=== PATIENT | male | born 1965 | race Hispanic/Latino ===

== ENCOUNTER 2017-10-01 15:14 | Emergency (ER) | payer SELFPAY ==
[2017-10-01 15:40] VITALS: BMI 33.3
[2017-10-01 15:46] VITALS: O2SAT 100
--- NOTE | 2017-10-01 16:10 | C.PDOC ---
History Of Present Illness 52 y/o male presents to ED with complaints of pain to Rectal area for 2 days worse when having bowel movement. Patient states last night he was straining and noticed bright red blood in stool and states he feel constipated. Patient denies back pain, fever, chills, abdominal pain, vomiting or any other complaints at this time. Time Seen by Provider: 10/01/17 16:01 Chief Complaint (Nursing): GI Problem History Per: Patient History/Exam Limitations: no limitations Onset/Duration Of Symptoms: Days Current Symptoms Are (Timing): Still Present Past Medical History Reviewed: Historical Data, Nursing Documentation, Vital Signs Vital Signs: Last Vital Signs Temp 97.4 F L 10/01/17 16:40 Pulse 48 L 10/01/17 16:40 Resp 16 10/01/17 16:40 BP 117/79 10/01/17 16:40 Pulse Ox 100 10/01/17 16:40 - Medical History PMH: No Chronic Diseases Surgical History: Hernia Repair Family History: States: No Known Family Hx - Social History Hx Tobacco Use: No Hx Alcohol Use: Yes Hx Substance Use: No - Immunization History Hx Tetanus Toxoid Vaccination: No Hx Influenza Vaccination: No Hx Pneumococcal Vaccination: No Review Of Systems Constitutional: Negative for: Fever, Chills Gastrointestinal: Positive for: Constipation, Rectal Pain. Negative for: Nausea , Vomiting, Abdominal Pain, Diarrhea Musculoskeletal: Negative for: Back Pain Skin: Negative for: Rash Physical Exam - Physical Exam Appears: Non-toxic, No Acute Distress Skin: Normal Color, Warm, Dry, No Rash Head: Atraumatic, Normacephalic Eye(s): bilateral: Normal Inspection, EOMI Oral Mucosa: Moist Neck: Supple Cardiovascular: Rhythm Regular Respiratory: Normal Breath Sounds, No Accessory Muscle Use, No Rales, No Rhonchi , No Wheezing Gastrointestinal/Abdominal: Soft, No Tenderness, No Guarding, No Rebound Rectal: No Blood Streaked Stool, Hemorrhoids (External. Non thrombosed, Non tender ) Back: Normal Inspection, No Vertebral Tenderness, No Paraspinal Tenderness Extremity: Bilateral: Atraumatic, Normal Color And Temperature, Normal ROM Neurological/Psych: Oriented x3, Normal Speech ED Course And Treatment O2 Sat by Pulse Oximetry: 100 (RA) Pulse Ox Interpretation: Normal Medical Decision Making Medical Decision Making: Patient with external non-thrombosed hemorrhoids, no bleeding noted. Advise patient to increase fluid and fiber intake to help with constipation. Also recommend medications to help with symptoms Rx Given. Disposition Counseled Patient/Family Regarding: Diagnosis, Need For Followup, Rx Given - Disposition Referrals: Linda Doll MD [Staff Provider] - Disposition: HOME/ ROUTINE Disposition Time: 16:10 Condition: STABLE Additional Instructions: Intente aumentar la ingesta de fibra y agua para ayudar con los sntomas de estreimiento aplicar crema en el lori rectal Por favor, winnie un seguimiento con un mdico o clnica para sarah evaluacin adicional Prescriptions: Docusate [Colace] 100 mg PO Q8 #30 cap Hydrocortisone 2.5% (Rectal) [Anusol-HC] 30 applic HI BID #1 tube Instructions: Hemorrhoids (ED), High Fiber Diet (ED) Forms: [employer] (Sinhala) Print Language: INDONESIAN - POA Present On Arrival: None - Clinical Impression Clinical Impression: Hemorrhoids - PA / HULL MOLDER / Resident Statement MD/DO has reviewed & agrees with the documentation as recorded. - Scribe Statement The provider has reviewed the documentation as recorded by the Daxa Gaines All medical record entries made by the Rossibtraci were at my direction and personally dictated by me. I have reviewed the chart and agree that the record accurately reflects my personal performance of the history, physical exam, medical decision making, and the department course for this patient. I have also personally directed, reviewed, and agree with the discharge instructions and disposition.
[2017-10-01 16:40] VITALS: BP 117/79; PULSE 48; RESP 16; TEMP 97.4
== END 2017-10-01 16:41 | disposition home or self-care (01) ==
LOC: C.ER 15:14
DX: K64.4 Residual hemorrhoidal skin tags (principal)
CPT/HCPCS: 99284; G0328

== ENCOUNTER 2017-12-21 02:31 | Emergency (ER) | payer OTHER ==
[2017-12-21 02:31] VITALS: BMI 33.3
[2017-12-21 02:49] VITALS: RESP 18
[2017-12-21 03:47] LABS: BASO % 0.5 % (0.0-2.0); EOS # 0.2 K/uL (0.0-0.7); EOS % 1.7 % (0.0-4.0); HEMOGLOBIN 15.2 g/dL (12.0-18.0); LYMPH # 2.9 K/uL (1.0-4.3); MEAN CELL VOLUME 91.2 fL (80.0-94.0); MEAN CORPUSCULAR HEMOGLOBIN 30.8 pg (27.0-31.0); MEAN CORPUSCULAR HGB CONC 33.8 g/dL (33.0-37.0); MEAN PLATELET VOLUME 10.5 fL (7.2-11.7); MONO % 10.7 % (0.0-10.0); NEUT # 5.1 K/uL (1.8-7.0); NEUT % 55.1 % (50.0-75.0); NRBC % 0.1 % (0.0-2.0); RBC 4.93 Mil/uL (4.40-5.90); RED CELL DISTRIBUTION WIDTH 14.5 % (11.5-14.5); WHITE BLOOD COUNT 9.2 K/uL (4.8-10.8)
[2017-12-21 03:54] LABS: INR 0.9; PROTHROMBIN TIME 10.5 SECONDS (9.7-12.2)
[2017-12-21 04:02] LABS: CALCIUM 9.7 mg/dl (8.6-10.4); GFR AFRICAN-AMERICAN > 60; GFR NON-AFRICAN AMERICAN > 60; LIPASE 49 U/L (23-300)
[2017-12-21 04:05] LABS: URINE BILIRUBIN NEGATIVE (NEGATIVE); URINE BLOOD NEGATIVE (NEGATIVE); URINE CLARITY Clear (Clear); URINE COLOR Yellow (YELLOW); URINE GLUCOSE (UA) NORMAL (Normal); URINE LEUKOCYTE ESTERASE NEG Leu/uL (Negative); URINE NITRATE NEGATIVE (NEGATIVE); URINE PROTEIN NEGATIVE (NEGATIVE); URINE UROBILINOGEN NORMAL mg/dL (0.2-1.0)
[2017-12-21 04:11] LABS: ALB/GLOB RATIO 1.2 (1.0-2.1); ALT/SGPT 25 U/L (21-72); AST/SGOT 33 U/L (17-59); BLOOD UREA NITROGEN 18 mg/dL (9-20)
[2017-12-21 04:14] LABS: CK-MB 2.63 ng/mL (0.0-3.38)
[2017-12-21] MEDS ORDERED: Sodium Chloride 0.9% 1,000 ML IV ONE (04:35)
[2017-12-21] MEDS ORDERED: Morphine 4 MG/ML VIAL ONE (04:47)
[2017-12-21] MEDS ORDERED: Sodium Chloride 0.9% 1,000 ML ONE (04:47)
[2017-12-21 06:40] VITALS: BP 120/67; PULSE 52; TEMP 97.7; O2SAT 100
--- NOTE | 2017-12-21 06:47 | C.PDOC ---
Time Seen by Provider: 12/21/17 03:00 Chief Complaint (Nursing): Abdominal Pain History Per: Patient, Family Onset/Duration Of Symptoms: Hrs (2) Current Symptoms Are (Timing): Still Present Severity: Moderate Location Of Pain/Discomfort: RUQ, Epigastric Quality Of Discomfort: "Pain" Alleviating Factors: None Additional History Per: Prior Records Past Medical History Reviewed: Historical Data, Nursing Documentation, Vital Signs Vital Signs: Last Vital Signs Temp 97.7 F 12/21/17 06:38 Pulse 52 L 12/21/17 06:38 Resp 18 12/21/17 06:38 BP 120/67 12/21/17 06:38 Pulse Ox 100 12/21/17 06:48 - Medical History Other PMH: Bradycardia and "enlarged heart" Surgical History: Hernia Repair Family History: States: Unknown Family Hx - Social History Hx Tobacco Use: No Hx Alcohol Use: Yes Hx Substance Use: No - Immunization History Hx Tetanus Toxoid Vaccination: No Hx Influenza Vaccination: No Hx Pneumococcal Vaccination: No Review Of Systems Except As Marked, All Systems Reviewed And Found Negative. Constitutional: Negative for: Fever Cardiovascular: Negative for: Chest Pain, Palpitations, Light Headedness Respiratory: Negative for: Shortness of Breath Gastrointestinal: Positive for: Constipation. Negative for: Vomiting Genitourinary: Negative for: Dysuria Musculoskeletal: Negative for: Neck Pain, Back Pain Skin: Negative for: Rash Neurological: Negative for: Weakness, Numbness, Dizziness Physical Exam - Physical Exam Appears: Non-toxic, No Acute Distress Skin: Normal Color, Warm, Dry, No Rash Head: Atraumatic, Normacephalic Eye(s): bilateral: Normal Inspection, PERRL, EOMI Neck: Normal ROM, Supple Cardiovascular: Rhythm Regular (bradycardia) Respiratory: Normal Breath Sounds, No Accessory Muscle Use Gastrointestinal/Abdominal: Soft, Tenderness (epigastric/RUQ), No Guarding, No Rebound Back: No CVA Tenderness Extremity: Normal ROM, No Pedal Edema, No Calf Tenderness Neurological/Psych: Oriented x3, Normal Motor, Normal Sensation ED Course And Treatment - Laboratory Results Result Diagrams: 12/21/17 03:43 12/21/17 03:43 Lab Interpretation: No Acute Changes ECG: Interpreted By Me, Viewed By Me ECG Rhythm: Sinus Bradycardia, Nonspecific Changes ECG Interpretation: No Changes From Prior Interpretation Of ECG: T wave inversions in anterolateral leads. Rate From EC O2 Sat by Pulse Oximetry: 100 Pulse Ox Interpretation: Normal - Radiology CXR: Interpreted by Me, Viewed By Me CXR Interpretation: Yes: Cardiomegaly - CT Scan/US RUQ Sono Other Rad Studies (CT/US): Read By Radiologist, Radiology Report Reviewed CT/US Interpretation: IMPRESSION: 1. There are gallstones, gallbladder sludge with 3 mm gallbladder wall. thickening.There was no right upper quadrant tenderness during the sonographic. examination. Correlation with patient's pain medication status is recommended. Correlation with clinical data is recommended if acute on chronic. cholecystitis is clinically suspected. Progress - Interventions Interventions:: Observation, Intravenous fluid - Medications Administered Intravenous: Opiate - Data Reviewed Data Reviewed: Lab, Diagnostic imaging, EKG, Old records - Patient Status Patient status: Completely improved - Continuity of Care Discussed patient case with:: Patient, Family-HIPPA compliant, ED Nurse - Patient Plan Patient Plan: Discharge, F/U with PCP Disposition Counseled Patient/Family Regarding: Studies Performed, Diagnosis, Need For Followup - Disposition Referrals: [facility] [Outside] Fantasma Nesbitt MD [Staff Provider] - Disposition: HOME/ ROUTINE Disposition Time: 07:02 Condition: IMPROVED Additional Instructions: Follow up in the clinic and with a General Surgeon for further evaluation and treatment. Return to the ER if you develop fever, vomiting, worsening of symptoms or if you have any other concerns. Instructions: Gallstones (DC) Forms: Gen Discharge Inst Welsh Print Language: SAUDI ARABIAN - Clinical Impression Clinical Impression: Biliary colic
--- NOTE | 2017-12-21 06:51 | US ---
EXAM: US Abdomen Limited, Right Upper Quadrant CLINICAL HISTORY: 52 years old, male; Pain; Abdominal pain; Epigastric; Additional info: Ruq/epigastric pain TECHNIQUE: Real-time ultrasound of the right upper quadrant with image documentation. COMPARISON: No relevant prior studies available. FINDINGS: Artifacts: Limited due to bowel gas shadowing. Limited due to shadowing from the ribs. Liver: The liver measures 15.58 cm. Echogenic fatty liver. Limited evaluation due to shadowing.There is hepatic pedal flow in the portal vein. Gallbladder: There are gallstones, gallbladder sludge with 3 mm gallbladder wall thickening.There was no right upper quadrant tenderness during the sonographic examination. Correlation with patient's pain medication status is recommended. The gallstone was not mobile as perceived by technologist. Common bile duct: Normal common bile duct measuring 4 mm. No stones. No dilation. Pancreas: The pancreas is not well-seen. Echogenic pancreas. Right kidney: The right kidney measures 10.5 x 5.04 x 5.88 cm. No stones. No hydronephrosis. Aorta: The proximal aorta measures 2.2 cm, the mid abdominal aorta appears grossly unremarkable. The distal abdominal aorta appears unremarkable. No aneurysm. 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 IMPRESSION: 1. There are gallstones, gallbladder sludge with 3 mm gallbladder wall thickening.There was no right upper quadrant tenderness during the sonographic examination. Correlation with patient's pain medication status is recommended. Correlation with clinical data is recommended if acute on chronic cholecystitis is clinically suspected.
--- NOTE | 2017-12-21 08:56 | RAD ---
HISTORY: Epigastric pain COMPARISON: 02/26/2015 TECHNIQUE: Chest PA and lateral FINDINGS: LUNGS: No active pulmonary disease. PLEURA: No significant pleural effusion identified. No pneumothorax apparent. CARDIOVASCULAR: Normal. OSSEOUS STRUCTURES: No significant abnormalities. VISUALIZED UPPER ABDOMEN: Normal. OTHER FINDINGS: None. IMPRESSION: No active disease.
--- NOTE | 2017-12-25 12:39 | CARD ---
APPROVED REPORT EKG Measurement Heart [id number] <Conclusion> Marked sinus bradycardia Anterolateral infarct, age undetermined ST & T wave abnormality, consider inferiorlateral ischemia Abnormal ECG
--- NOTE | 2017-12-25 12:40 | CARD ---
APPROVED REPORT EKG Measurement Heart [id number] <Conclusion> Sinus bradycardia Marked ST abnormality, possible lateral subendocardial injury Abnormal ECG
== END 2017-12-21 07:18 | disposition home or self-care (01) ==
LOC: C.ER 02:31
DX: K80.50 Calculus of bile duct without cholangitis or cholecystitis without obstruction (principal)
CPT/HCPCS: 71046; 76705; 80053; 81001; 83690; 84484; 85025; 85610; 85730; 93005; 96361; 96374; 96375; 99284; C9113; J2270; J7040

== ENCOUNTER 2017-12-25 07:21 | Emergency (ER) | payer OTHER ==
[2017-12-25 07:21] VITALS: BMI 33.3
--- NOTE | 2017-12-25 09:11 | C.PDOC ---
History Of Present Illness 52 yr old male presents to the ER with complaints of rectal pain with bowel movement for the past 3 days. Patient reports history of hemorrhoids. States it feels similar to past hemorrhoid flare up. Patient reports he noticed small amount of blood when he strains. Reports positive constipation. Patient denies fever, nausea, vomiting, abdominal pain, diarrhea, dysuria, hematuria, back pain , weakness or numbness. Time Seen by Provider: 12/25/17 08:15 Chief Complaint (Nursing): GI Problem History Per: Patient History/Exam Limitations: no limitations Onset/Duration Of Symptoms: Days (3) Current Symptoms Are (Timing): Still Present Past Medical History Reviewed: Historical Data, Nursing Documentation, Vital Signs Vital Signs: Last Vital Signs Temp 98 F 12/25/17 10:41 Pulse 60 12/25/17 10:41 Resp 20 12/25/17 10:41 BP 109/66 12/25/17 10:41 Pulse Ox 97 12/25/17 10:41 Surgical History: Hernia Repair Family History: States: No Known Family Hx - Social History Hx Tobacco Use: No Hx Alcohol Use: Yes Hx Substance Use: No - Immunization History Hx Tetanus Toxoid Vaccination: No Hx Influenza Vaccination: No Hx Pneumococcal Vaccination: No Review Of Systems Except As Marked, All Systems Reviewed And Found Negative. Constitutional: Negative for: Fever Gastrointestinal: Positive for: Constipation, Rectal Pain. Negative for: Nausea , Vomiting, Abdominal Pain, Diarrhea Genitourinary: Negative for: Dysuria, Hematuria Musculoskeletal: Negative for: Back Pain Neurological: Negative for: Weakness, Numbness Physical Exam - Physical Exam Appears: Non-toxic, No Acute Distress Skin: Warm, Dry, No Rash Head: Atraumatic, Normacephalic Eye(s): bilateral: Normal Inspection Oral Mucosa: Moist Neck: Normal ROM, Supple Chest: Symmetrical, No Tenderness Cardiovascular: Rhythm Regular, No Murmur Respiratory: Normal Breath Sounds, No Rales, No Rhonchi, No Stridor, No Wheezing Gastrointestinal/Abdominal: Soft, No Tenderness, No Guarding, No Rebound Rectal: No Blood Streaked Stool, Hemorrhoids (1cm non thrombosed hemorrhoid at 9 oclock position), Other (news director TAMI Ordaz) Back: No CVA Tenderness Extremity: Normal ROM, No Swelling Neurological/Psych: Oriented x3, Normal Speech, Normal Motor Gait: Steady ED Course And Treatment O2 Sat by Pulse Oximetry: 98 (RA) Pulse Ox Interpretation: Normal Medical Decision Making Medical Decision Making: PLAN: * Bentyl PO * Motrin Po On re-exam, the patient reports improvement of symptoms. Lungs are CTA, heart is RRR, abdomen is soft, non-tender and tolerating PO well. Ambulatory in the ED steady gait. Follow up with the medical doctor within 1-2 days. Return if worsened. Disposition - Disposition Referrals: Fantasma Nesbitt MD [Staff Provider] - Disposition: HOME/ ROUTINE Disposition Time: 10:29 Condition: STABLE Additional Instructions: Perform sitz baths 3 days. Follow up with the medical doctor within 1-2 days withotu fail, return if worsened,. Prescriptions: Dicyclomine [Bentyl] 10 mg PO QID PRN #20 cap PRN Reason: stomach pain Lidocaine/Aloe Vera [Gnp Aloe Vera-Lidocaine Gel] 2 gm TP BID #1 gel..gram. Instructions: Hemorrhoids Forms: [employer] (Yakut) - Clinical Impression Clinical Impression: Hemorrhoid - PA / LENS BLOCK GAUGER / Resident Statement MD/DO has reviewed & agrees with the documentation as recorded. - Scribe Statement The provider has reviewed the documentation as recorded by the Scribe Kala Sorenson All medical record entries made by the Scribe were at my direction and personally dictated by me. I have reviewed the chart and agree that the record accurately reflects my personal performance of the history, physical exam, medical decision making, and the department course for this patient. I have also personally directed, reviewed, and agree with the discharge instructions and disposition.
[2017-12-25 10:43] VITALS: BP 109/66; PULSE 60; RESP 20; TEMP 98
[2017-12-26 20:00] VITALS: O2SAT 98
== END 2017-12-25 10:41 | disposition home or self-care (01) ==
LOC: C.ER 07:21
DX: K64.9 Unspecified hemorrhoids (principal)

== ENCOUNTER 2018-05-08 10:10 | Emergency (ER) | payer OTHER ==
[2018-05-08 10:10] VITALS: BMI 33.3
[2018-05-08 10:25] VITALS: O2SAT 98
[2018-05-08] MEDS ORDERED: Sodium Chloride 0.9% 1,000 ML IV ONE (10:34)
--- NOTE | 2018-05-08 10:35 | C.PDOC ---
History Of Present Illness 53 year old male with a known history of gallstones presents to the emergency department with complaints of right upper quadrant pain for the past three days. Patient reports that the pain is intermittent, and is similar to prior episodes. Patient reports that he did not take any pain relievers, and he denies nausea and vomiting. Time Seen by Provider: 05/08/18 10:25 Chief Complaint (Nursing): Abdominal Pain History Per: Patient History/Exam Limitations: no limitations Onset/Duration Of Symptoms: Days (3), Intermittent Episodes Current Symptoms Are (Timing): Still Present Location Of Pain/Discomfort: RUQ Quality Of Discomfort: "Pain" Associated Symptoms: denies: Nausea, Vomiting Past Medical History Reviewed: Historical Data, Nursing Documentation, Vital Signs Vital Signs: Last Vital Signs Temp 98 F 05/08/18 12:56 Pulse 76 05/08/18 12:56 Resp 18 05/08/18 12:56 BP 136/72 05/08/18 12:56 Pulse Ox 98 05/08/18 12:56 - Medical History PMH: Gall Bladder Disease Other PMH: Gallstones Surgical History: Hernia Repair Family History: States: No Known Family Hx - Social History Hx Tobacco Use: No Hx Alcohol Use: Yes Hx Substance Use: No - Immunization History Hx Tetanus Toxoid Vaccination: No Hx Influenza Vaccination: No Hx Pneumococcal Vaccination: No Review Of Systems Constitutional: Negative for: Fever, Chills Cardiovascular: Negative for: Chest Pain Respiratory: Negative for: Shortness of Breath Gastrointestinal: Positive for: Abdominal Pain (RUQ). Negative for: Nausea, Diarrhea Genitourinary: Negative for: Dysuria Musculoskeletal: Negative for: Back Pain Neurological: Negative for: Weakness, Numbness Physical Exam - Physical Exam Appears: Well, Non-toxic, No Acute Distress Skin: Warm, Dry, No Rash Head: Atraumatic, Normacephalic Eye(s): bilateral: Normal Inspection Oral Mucosa: Moist Neck: Normal Chest: Symmetrical Cardiovascular: Rhythm Regular, No Murmur Respiratory: Normal Breath Sounds, No Rales, No Rhonchi, No Wheezing Gastrointestinal/Abdominal: Soft, Tenderness (RUQ), No Distention, Other ( negative Jones's ) Extremity: Bilateral: Atraumatic, Normal Color And Temperature, Normal ROM Neurological/Psych: Oriented x3, Normal Speech Gait: Steady ED Course And Treatment - Laboratory Results Result Diagrams: 05/08/18 10:44 05/08/18 10:44 Lab Interpretation: No Acute Changes O2 Sat by Pulse Oximetry: 98 (RA) Pulse Ox Interpretation: Normal - CT Scan/US US Abdomen Other Rad Studies (CT/US): Read By Radiologist, Radiology Report Reviewed CT/US Interpretation: IMPRESSION: Cholelithiasis. No sonographic Jones sign. Hepatomegaly with increased hepatic echotexture likely due to fatty infiltration however other infiltrative hepatic cellular disease process not excluded. Medical Decision Making Medical Decision Making: Impression: RUQ abdominal pain Plan: * Labs * IV NS * Toradol 30mg IVP * Zofran 4mg IVP * Urinalysis * US Abdomen Progress: Labs reviewed with no acute findings. No leukocytosis, bandemia, electrolyte abnormality or renal dysfunction. US shows cholelithiasis without evidence of acute cholecystitis Re-eval: Upon re-evaluation patient feels better and reports abdominal pain having resolved. Patient has no fever and vital signs stable. I discussed results with patient and advised he follow up in the clinic and seek surgery as this pain will likely be recurrent. Patient expressed understanding and will follow up with clinic. Disposition Counseled Patient/Family Regarding: Diagnosis, Need For Followup - Disposition Referrals: Rip Pineda MD [Staff Provider] - Linda Doll MD [Staff Provider] - Disposition: HOME/ ROUTINE Disposition Time: 12:55 Condition: STABLE Additional Instructions: Tus laboratorios fueron normales Ultrasonido muestra clculos biliares Por favor winnie un seguimiento en la clnica y busque consulta quirrgica Instructions: Gallstones (DC) Forms: [email or web address] (Georgian) Print Language: LATVIAN - POA Present On Arrival: None - Clinical Impression Clinical Impression: Cholelithiasis - PA / BARREL TESTER / Resident Statement MD/DO has reviewed & agrees with the documentation as recorded. - Scribe Statement The provider has reviewed the documentation as recorded by the Scribe (Dev Mortensen) All medical record entries made by the Scribe were at my direction and personally dictated by me. I have reviewed the chart and agree that the record accurately reflects my personal performance of the history, physical exam, medical decision making, and the department course for this patient. I have also personally directed, reviewed, and agree with the discharge instructions and disposition.
[2018-05-08] MEDS ORDERED: Sodium Chloride 0.9% 1,000 ML ONE (10:43)
[2018-05-08 10:47] LABS: BASO # 0.1 K/uL (0.0-0.2); BASO % 0.7 % (0.0-2.0); EOS # 0.2 K/uL (0.0-0.7); EOS % 1.9 % (0.0-4.0); HEMOGLOBIN 15.1 g/dL (12.0-18.0); LYMPH # 2.1 K/uL (1.0-4.3); MEAN CORPUSCULAR HEMOGLOBIN 30.3 pg (27.0-31.0); MEAN CORPUSCULAR HGB CONC 33.3 g/dL (33.0-37.0); MONO # 0.9 K/uL (0.0-0.8); NEUT # 6.6 K/uL (1.8-7.0); NEUT % 67.4 % (50.0-75.0); RBC 4.97 Mil/uL (4.40-5.90); RED CELL DISTRIBUTION WIDTH 14.6 % (11.5-14.5); WHITE BLOOD COUNT 9.8 K/uL (4.8-10.8)
[2018-05-08 10:57] LABS: SQUAMOUS EPITHIAL < 1 /hpf (0-5); URINE BILIRUBIN NEGATIVE (NEGATIVE); URINE BLOOD NEGATIVE (NEGATIVE); URINE CLARITY Clear (Clear); URINE COLOR Yellow (YELLOW); URINE GLUCOSE (UA) NORMAL (Normal); URINE LEUKOCYTE ESTERASE NEG Leu/uL (Negative); URINE PROTEIN NEGATIVE (NEGATIVE); URINE UROBILINOGEN NORMAL mg/dL (0.2-1.0)
[2018-05-08 11:04] LABS: ALB/GLOB RATIO 1.7 (1.0-2.1); ALBUMIN 4.6 g/dL (3.5-5.0); ALT/SGPT 19 U/L (21-72); AST/SGOT 30 U/L (17-59); BLOOD UREA NITROGEN 15 mg/dL (9-20); GFR AFRICAN-AMERICAN > 60; GFR NON-AFRICAN AMERICAN > 60; LIPASE 31 U/L (23-300)
--- NOTE | 2018-05-08 12:12 | US ---
HISTORY: RUQ abd pain h.o gallstones COMPARISON: Comparison made with prior right upper quadrant ultrasound dated 12/21/2017 TECHNIQUE: Sonographic evaluation of the right upper quadrant of the abdomen. FINDINGS: LIVER: Mildly enlarged measuring nearly 20cm in CC dimension. Smooth contour though increased echogenicity likely due to fatty infiltration however other infiltrative hepatic cellular disease process not excluded. No mass. No intrahepatic bile duct dilatation. GALLBLADDER: Cholelithiasis again noted. No pericholecystic fluid collections or sonographic Jones sign. COMMON BILE DUCT: Measures 5.0 mm. No stones. No dilatation. PANCREAS: Pancreas incompletely seen due to body habitus and bowel gas though otherwise appears unremarkable so far as can be determined RIGHT KIDNEY: Measures 10.5 x 4.9 x 5.5 cm in length. Normal echogenicity. No calculus, mass, or hydronephrosis. AORTA: No aneurysmal dilatation. IVC: Unremarkable. OTHER FINDINGS: None . IMPRESSION: Cholelithiasis. No sonographic Jones sign. Hepatomegaly with increased hepatic echotexture likely due to fatty infiltration however other infiltrative hepatic cellular disease process not excluded.
[2018-05-08 12:56] VITALS: BP 136/72; PULSE 76; RESP 18; TEMP 98
== END 2018-05-08 12:56 | disposition home or self-care (01) ==
LOC: C.ER 10:10
DX: K80.20 Calculus of gallbladder without cholecystitis without obstruction (principal)
CPT/HCPCS: 76705; 80053; 81001; 83690; 85025; 96374; 96375; 99284; J1885; J2405; J7030

== ENCOUNTER 2018-05-08 18:13 | Inpatient (IN) | payer OTHER ==
[2018-05-08 18:13] VITALS: BMI 33.3
[2018-05-08] MEDS ORDERED: Morphine 4 MG/ML VIAL IV ONE ×2 (19:10→21:33)
--- NOTE | 2018-05-08 19:11 | C.PDOC ---
History Of Present Illness 53 year old male presents to the ED complaining of abdominal pain since . Patient states he was treated in the ER this morning for the same symptoms but pain persists. He also reports he was diagnosed with gallbladder disease in 3 months ago. He denies any nausea, vomiting, diarrhea, fever, back pain, shoulder pain, or other medical complaints. Time Seen by Provider: 05/08/18 19:10 Chief Complaint (Nursing): Abdominal Pain History Per: Patient History/Exam Limitations: no limitations Onset/Duration Of Symptoms: Days Current Symptoms Are (Timing): Still Present Location Of Pain/Discomfort: RUQ Radiation Of Pain To:: None Associated Symptoms: denies: Fever, Chills, Nausea, Vomiting, Diarrhea Past Medical History Reviewed: Historical Data, Nursing Documentation, Vital Signs Vital Signs: Last Vital Signs Temp 99.4 F 05/08/18 20:59 Pulse 59 L 05/08/18 20:59 Resp 16 05/08/18 20:59 BP 96/55 L 05/08/18 20:59 Pulse Ox 99 05/08/18 21:57 - Medical History PMH: Gall Bladder Disease Denies: Chronic Kidney Disease Surgical History: Hernia Repair Family History: States: No Known Family Hx - Social History Hx Tobacco Use: No Hx Alcohol Use: Yes Hx Substance Use: No - Immunization History Hx Tetanus Toxoid Vaccination: No Hx Influenza Vaccination: No Hx Pneumococcal Vaccination: No Review Of Systems Except As Marked, All Systems Reviewed And Found Negative. Constitutional: Negative for: Fever, Chills Gastrointestinal: Positive for: Abdominal Pain (Right Upper Quadrant). Negative for: Nausea, Vomiting, Diarrhea Musculoskeletal: Negative for: Shoulder Pain, Back Pain Physical Exam - Physical Exam Appears: Non-toxic, Other (Uncomfortable ) Skin: Normal Color, Warm, Dry Head: Atraumatic, Normacephalic Eye(s): bilateral: Normal Inspection Oral Mucosa: Moist Gastrointestinal/Abdominal: Tenderness (Tenderness to palpation to right upper quadrant), Guarding, Other (+ Jones's sign) Neurological/Psych: Oriented x3, Normal Speech ED Course And Treatment - Laboratory Results Result Diagrams: 05/08/18 19:24 05/08/18 19:24 ECG: Interpreted By Me ECG Rhythm: Sinus Rhythm, ST/T Changes O2 Sat by Pulse Oximetry: 99 (RA) Pulse Ox Interpretation: Normal - CT Scan/US US Abd Other Rad Studies (CT/US): Read By Radiologist, Radiology Report Reviewed CT/US Interpretation: EXAM: US Abdomen Limited, Right Upper Quadrant. CLINICAL HISTORY: 53 years old, male; Pain; Abdominal pain; Generalized; Additional info: Abd pain-ruq. TECHNIQUE: Real-time ultrasound of the right upper quadrant with image documentation. COMPARISON: US - ABDOMEN LIMITED 2017 11:01. FINDINGS: Liver: Liver echogenicity is diffusely increased. Enlarged liver at 20 cm. No intrahepatic bile duct. dilation. Gallbladder: Sonographic Jones's sign is negative. Gallbladder wall thickness 3 mm. small. gallstone within the neck which is non-mobile. Additional smaller stones also seen which appear. mobile. Gallbladder sludge is also present. Common bile duct: Common bile duct 5 mm. No stones. No dilation. Pancreas: Unremarkable as visualized. Right kidney: Right kidney is 10.5 cm. No stones. No hydronephrosis. IMPRESSION: Gallbladder neck stone which is mobile. Additional small stones and sludge. No biliary dilatation is seen. Liver as enlarged with increased echogenicity suggesting hepatic steatosis. pos stone in neck of GB which is immobile Other Rad Studies (CT/US): Read By Radiologist Medical Decision Making Medical Decision Making: Differentials: - Cholecystitis - Biliary Colic - Peptic Ulcer Disease - Gastritis Plan: - Labs - Analgesics - US abdomen [address] Nesbitt, Surgery for biliary colic intractable. 2033 Dr. Nesbitt admitted patient. [id number] Previous EKGs reports reviewed. Patient previously had flipped T waves and V2, now demonstrated flipped T waves and V4 through V6. Disposition - Disposition Disposition: HOSPITALIZED Disposition Time: 22:26 Condition: FAIR - Clinical Impression Clinical Impression: Recurrent biliary colic - Scribe Statement The provider has reviewed the documentation as recorded by the Scribe Dana Wick All medical record entries made by the Rossibe were at my direction and personally dictated by me. I have reviewed the chart and agree that the record accurately reflects my personal performance of the history, physical exam, medical decision making, and the department course for this patient. I have also personally directed, reviewed, and agree with the discharge instructions and disposition.
[2018-05-08 19:31] LABS: BASO # 0.1 K/uL (0.0-0.2); BASO % 0.5 % (0.0-2.0); EOS # 0.1 K/uL (0.0-0.7); HEMOGLOBIN 14.7 g/dL (12.0-18.0); LYMPH # 1.3 K/uL (1.0-4.3); LYMPH % 10.1 % (20.0-40.0); MEAN CELL VOLUME 90.1 fL (80.0-94.0); MEAN CORPUSCULAR HEMOGLOBIN 29.7 pg (27.0-31.0); MEAN CORPUSCULAR HGB CONC 32.9 g/dL (33.0-37.0); MEAN PLATELET VOLUME 10.1 fL (7.2-11.7); MONO % 7.5 % (0.0-10.0); NEUT # 10.7 K/uL (1.8-7.0); NEUT % 80.9 % (50.0-75.0); RBC 4.95 Mil/uL (4.40-5.90); RED CELL DISTRIBUTION WIDTH 14.6 % (11.5-14.5); WHITE BLOOD COUNT 13.2 K/uL (4.8-10.8)
[2018-05-08] MEDS ORDERED: Morphine 4 MG/ML VIAL ONE (19:35)
[2018-05-08 19:36] LABS: PROTHROMBIN TIME 10.9 SECONDS (9.7-12.2)
[2018-05-08 19:41] LABS: ALB/GLOB RATIO 1.5 (1.0-2.1); ALBUMIN 4.3 g/dL (3.5-5.0); ALT/SGPT 23 U/L (21-72); AST/SGOT 38 U/L (17-59); BLOOD UREA NITROGEN 13 mg/dL (9-20); CALCIUM 9.5 mg/dl (8.6-10.4); GFR AFRICAN-AMERICAN > 60; GFR NON-AFRICAN AMERICAN > 60; LIPASE 24 U/L (23-300)
[2018-05-08] MEDS: Oxycodone/Acetaminophen 5/325 mg Tab PO PRN (21:47)
[2018-05-08] MEDS ORDERED: Oxycodone/Acetaminophen 5/325 mg Tab ONE (21:48)
--- NOTE | 2018-05-08 22:13 | CP.PCM.CON ---
<Elia Braden - Last Filed: 05/08/18 22:09> History of Present Illness - History of Present Illness History of Present Illness: General Surgery H&P for Dr. Nesbitt This is 53M with no PMH who presents with intractable abdominal pain over the past 24 hours. He reports that he had a similar episode about 3 months ago and that he saw Dr. Nesbitt who said he would need a cholecystectomy in the near future. He did not followup because he was asymptomatic however now his symptoms have returned. Cramping abdominal pain located in the right upper quadrant. He denies any fevers chill chest pain nausea vomiting or diarrhea at home. He reports nothing makes it better and nothing makes it worse. PMH: Denies PSH: Inginal hernia repair 10 years ago Meds: Denies All: Denies Social: Denies Vices Review of Systems - Review of Systems All systems: reviewed and no additional remarkable complaints except - Constitutional Constitutional: absent: Anorexia, Chills - EENT Eyes: absent: Blind Spots, Blurred Vision Ears: absent: Ear Pain, Tinnitus - Cardiovascular Cardiovascular: absent: Chest Pain, Dyspnea - Respiratory Respiratory: absent: Cough, Dyspnea - Gastrointestinal Gastrointestinal: Abdominal Pain, Bloating. absent: Belching, Diarrhea, Melena , Nausea, Vomiting - Genitourinary Genitourinary: absent: Difficulty Urinating, Dysuria - Integumentary Integumentary: absent: Bleeding Lesions, Rash Past Patient History - Infectious Disease Hx of Infectious Diseases: None - Past Medical History & Family History Past Medical History?: Yes - Past Social History Smoking Status: Former Smoker - CARDIAC Hx Cardiac Disorders: No - PULMONARY Hx Respiratory Disorders: No - NEUROLOGICAL Hx Neurological Disorder: No - HEENT Hx HEENT Problems: No - RENAL Hx Chronic Kidney Disease: No - ENDOCRINE/METABOLIC Hx Endocrine Disorders: No - HEMATOLOGICAL/ONCOLOGICAL Hx Blood Disorders: No - INTEGUMENTARY Hx Dermatological Problems: No - MUSCULOSKELETAL/RHEUMATOLOGICAL Hx Musculoskeletal Disorders: No Hx Falls: No - GASTROINTESTINAL Hx Gall Bladder Disease: Yes - GENITOURINARY/GYNECOLOGICAL Hx Genitourinary Disorders: Yes (SEE COMMENT) Other/Comment: RIGHT INGUINAL HERNIA SX - PSYCHIATRIC Hx Substance Use: No - SURGICAL HISTORY Hx Surgeries: Yes Hx Herniorrhaphy: Yes - ANESTHESIA Hx Anesthesia: Yes Hx Anesthesia Reactions: No Hx Malignant Hyperthermia: No Meds Allergies/Adverse Reactions: Allergies Allergy/AdvReac Type Severity Reaction Status Date / Time No Known Allergies Allergy Verified 12/25/17 07:36 - Medications Medications: Current Medications Acetaminophen (Tylenol 325mg Tab) 650 mg PO Q6 PRN PRN Reason: Pain, Mild (1-3) Docusate Sodium (Colace) 100 mg PO BID KVNG Ibuprofen (Motrin Tab) 400 mg PO Q6 PRN PRN Reason: Pain, Mild (1-3) Ondansetron HCl (Zofran Inj) 4 mg IVP Q6 PRN PRN Reason: Nausea/Vomiting Oxycodone/Acetaminophen (Percocet 5/325 Mg Tab) 1 tab PO Q4H PRN PRN Reason: Pain, severe (8-10) Stop: 05/11/18 21:09 Last Admin: 05/08/18 21:47 Dose: 1 tab Physical Exam - Constitutional Appears: Non-toxic, No Acute Distress - Head Exam Head Exam: ATRAUMATIC, NORMAL INSPECTION - Eye Exam Eye Exam: EOMI, Normal appearance - ENT Exam ENT Exam: Mucous Membranes Moist, Normal Exam - Neck Exam Neck exam: Positive for: Normal Inspection - Respiratory Exam Respiratory Exam: NORMAL BREATHING PATTERN - Cardiovascular Exam Cardiovascular Exam: +S1, +S2 - GI/Abdominal Exam GI & Abdominal Exam: Soft, Tenderness. absent: Distended, Firm, Guarding, Hernia, Rigid - Extremities Exam Extremities exam: Positive for: normal inspection - Neurological Exam Neurological exam: Alert, Oriented x3 - Psychiatric Exam Psychiatric exam: Normal Affect, Normal Mood - Skin Skin Exam: Dry, Intact Results - Vital Signs Recent Vital Signs: Last Vital Signs Temp 99.4 F 05/08/18 20:59 Pulse 59 L 05/08/18 20:59 Resp 16 05/08/18 20:59 BP 96/55 L 05/08/18 20:59 Pulse Ox 99 05/08/18 21:57 - Labs Result Diagrams: 05/08/18 19:24 05/08/18 19:24 Labs: Laboratory Results - last 24 hr 05/08/18 05/08/18 05/08/18 19:24 19:24 19:24 WBC 13.2 H RBC 4.95 Hgb 14.7 Hct 44.6 MCV 90.1 MCH 29.7 MCHC 32.9 L RDW 14.6 H Plt Count 170 MPV 10.1 Neut % (Auto) 80.9 H Lymph % (Auto) 10.[address] % (Auto) 7.5 Eos % (Auto) 1.0 Baso % (Auto) 0.5 Neut # (Auto) 10.7 H Lymph # (Auto) 1.3 [facility] [facility] # (Auto) 1.0 H Eos # (Auto) 0.1 Baso # (Auto) 0.1 PT 10.9 INR 1.0 APTT 31 Sodium 142 Potassium 5.1 Chloride 105 Carbon Dioxide 28 Anion Gap 15 BUN 13 Creatinine 0.9 Est GFR ( Amer) > 60 Est GFR (Non-Af Amer) > 60 Random Glucose 122 H Calcium 9.5 Total Bilirubin 0.9 AST 38 ALT 23 Alkaline Phosphatase 59 Total Protein 7.3 Albumin 4.3 Globulin 3.0 Albumin/Globulin Ratio 1.5 Lipase 24 Assessment & Plan - Assessment and Plan (Free Text) Assessment: 53M with symptomatic cholelithiasis Plan: Regular Diet Or Thursday for Robotic [place] Consult medicine for medical clearance EKG CXR AM Labs F/U US D/W Dr. Laz Braden PGY3 <Fantasma Nebsitt B - Last Filed: 05/15/18 22:05> Results - Vital Signs Recent Vital Signs: Last Vital Signs Temp 97.3 F L 05/15/18 16:00 Pulse 55 L 05/15/18 16:00 Resp 20 05/15/18 16:00 BP 118/78 05/15/18 16:00 Pulse Ox 97 05/15/18 16:00 - Labs Result Diagrams: 05/13/18 07:50 05/13/18 07:50 Labs: Laboratory Results - last 24 hr 05/15/18 05/15/18 06:35 11:10 POC Glucose (mg/dL) 115 H 107 Attending/Attestation - Attestation I have personally seen and examined this patient.: Yes I have fully participated in the care of the patient.: Yes I have reviewed all pertinent clinical information: Yes Notes (Text): Pt was seen and examined at bedside Agree with above note and assessment Pt with RUQ pain and tenderness Labs and radiology reviewed Ass: Acute Cholecystitis and Cholelithiasis Plan : Medicine consult Possible Lap Cholecystectomy tomorrow Consent EKG, CXR NPO, IVF Plan d.w pt in detail. Risk and benefit explained in detail.
--- NOTE | 2018-05-09 00:55 | CP.PCM.CON ---
<Molly Samayoa P - Last Filed: 05/09/18 07:51> History of Present Illness - History of Present Illness History of Present Illness: HPI: 53 yo M with PMHx of cholelithiasis presented to the ED for severe 8/10 constant sharp RUQ abdominal pain that began 2 days prior to arrival. States he hasn't been able to eat due to the pain. Patient reportedly had this pain approximately 4 months ago, for which he was seen in the ED and followed up in the [facility] with Dr. Nesbitt who prescribed pain medication and told him he needed a surgery. Patient states at the time his symptoms had improved until now. Treatment with a "pain pill" provided no improvement. No relieving factors noted. Patient denies fever, chills, nausea, vomiting, diarrhea, chest pain, palpitations, and shortness of breath. PMHx: cholelithiasis PSHx: Hernia repair 10 years ago Allergies: NKDA Meds: Denies Family Hx: Denies Social Hx: Drinks 5, 12oz beers on the weekend. Denies tobacco and illicit drug use. PMD:[facility] Past Patient History - Infectious Disease Hx of Infectious Diseases: None - Past Medical History & Family History Past Medical History?: Yes - Past Social History Smoking Status: Former Smoker - CARDIAC Hx Cardiac Disorders: No - PULMONARY Hx Respiratory Disorders: No - NEUROLOGICAL Hx Neurological Disorder: No - HEENT Hx HEENT Problems: No - RENAL Hx Chronic Kidney Disease: No - ENDOCRINE/METABOLIC Hx Endocrine Disorders: No - HEMATOLOGICAL/ONCOLOGICAL Hx Blood Disorders: No - INTEGUMENTARY Hx Dermatological Problems: No - MUSCULOSKELETAL/RHEUMATOLOGICAL Hx Musculoskeletal Disorders: No Hx Falls: No - GASTROINTESTINAL Hx Gall Bladder Disease: Yes - GENITOURINARY/GYNECOLOGICAL Hx Genitourinary Disorders: Yes (SEE COMMENT) Other/Comment: RIGHT INGUINAL HERNIA SX - PSYCHIATRIC Hx Substance Use: No - SURGICAL HISTORY Hx Surgeries: Yes Hx Herniorrhaphy: Yes - ANESTHESIA Hx Anesthesia: Yes Hx Anesthesia Reactions: No Hx Malignant Hyperthermia: No Meds Allergies/Adverse Reactions: Allergies Allergy/AdvReac Type Severity Reaction Status Date / Time No Known Allergies Allergy Verified 12/25/17 07:36 - Medications Medications: Current Medications Acetaminophen (Tylenol 325mg Tab) 650 mg PO Q6 PRN PRN Reason: Pain, Mild (1-3) Docusate Sodium (Colace) 100 mg PO BID KVNG Ibuprofen (Motrin Tab) 400 mg PO Q6 PRN PRN Reason: Pain, Mild (1-3) Ondansetron HCl (Zofran Inj) 4 mg IVP Q6 PRN PRN Reason: Nausea/Vomiting Oxycodone/Acetaminophen (Percocet 5/325 Mg Tab) 1 tab PO Q4H PRN PRN Reason: Pain, severe (8-10) Stop: 05/11/18 21:09 Last Admin: 05/08/18 21:47 Dose: 1 tab Physical Exam - Constitutional Additional comments: Pt uncomfortable with pain. - Head Exam Head Exam: ATRAUMATIC, NORMOCEPHALIC - Eye Exam Eye Exam: EOMI, Normal appearance, PERRL - ENT Exam ENT Exam: Mucous Membranes Moist - Neck Exam Neck exam: Positive for: Full Rom - Respiratory Exam Respiratory Exam: Clear to Auscultation Bilateral. absent: Rales, Rhonchi, Wheezes - Cardiovascular Exam Cardiovascular Exam: +S1, +S2 - GI/Abdominal Exam GI & Abdominal Exam: Firm, Normal Bowel Sounds, Tenderness (marked tenderness in RUQ) - Extremities Exam Extremities exam: Positive for: full ROM. Negative for: pedal edema, tenderness - Neurological Exam Neurological exam: Alert, CN II-XII Intact, Oriented x3 Additional comments: 5/5 muscle strength in all extremities. - Psychiatric Exam Psychiatric exam: Normal Affect, Normal Mood - Skin Skin Exam: Dry, Intact, Normal Color Results - Vital Signs Recent Vital Signs: Last Vital Signs Temp 98 F 05/09/18 00:21 Pulse 63 05/09/18 00:21 Resp 20 05/09/18 00:21 BP 122/69 05/09/18 00:21 Pulse Ox 96 05/09/18 00:21 - Labs Result Diagrams: 05/08/18 19:24 05/08/18 19:24 Labs: Laboratory Results - last 24 hr 05/08/18 05/08/18 05/08/18 19:24 19:24 19:24 WBC 13.2 H RBC 4.95 Hgb 14.7 Hct 44.6 MCV 90.1 MCH 29.7 MCHC 32.9 L RDW 14.6 H Plt Count 170 MPV 10.1 Neut % (Auto) 80.9 H Lymph % (Auto) 10.1 L [place] % (Auto) 7.5 Eos % (Auto) 1.0 Baso % (Auto) 0.5 Neut # (Auto) 10.7 H Lymph # (Auto) 1.3 [place]ro # (Auto) 1.0 H Eos # (Auto) 0.1 Baso # (Auto) 0.1 PT 10.9 INR 1.0 APTT 31 Sodium 142 Potassium 5.1 Chloride 105 Carbon Dioxide 28 Anion Gap 15 BUN 13 Creatinine 0.9 Est GFR ( Amer) > 60 Est GFR (Non-Af Amer) > 60 POC Glucose (mg/dL) Random Glucose 122 H Calcium 9.5 Total Bilirubin 0.9 AST 38 ALT 23 Alkaline Phosphatase 59 Troponin I Total Protein 7.3 Albumin 4.3 Globulin 3.0 Albumin/Globulin Ratio 1.5 Lipase 24 05/08/18 05/08/18 22:44 23:00 WBC RBC Hgb Hct MCV MCH MCHC RDW Plt Count MPV Neut % (Auto) Lymph % (Auto) [place]ferro % (Auto) Eos % (Auto) Baso % (Auto) Neut # (Auto) Lymph # (Auto) [place]ro # (Auto) Eos # (Auto) Baso # (Auto) PT INR APTT Sodium Potassium Chloride Carbon Dioxide Anion Gap BUN Creatinine Est GFR ( Amer) Est GFR (Non-Af Amer) POC Glucose (mg/dL) 144 H Random Glucose Calcium Total Bilirubin AST ALT Alkaline Phosphatase Troponin I 0.0200 Total Protein Albumin Globulin Albumin/Globulin Ratio Lipase Assessment & Plan - Assessment and Plan (Free Text) Plan: 53 yo M with no PMHx admitted for cholelithiasis. 1. Cholelithiasis -Abd US 05/08/18: Cholelithiasis. No sonographic Jones sign. Hepatomegaly with increased hepatic echotexture likely due to fatty infiltration however other infiltrative hepatic cellular disease process not excluded. -Abd US 12/21/17: There are gallstones, gallbladder sludge with 3 mm gallbladder wall thickening.There was no right upper quadrant tenderness during the sonographic examination. Correlation with patient's pain medication status is recommended.Correlation with clinical data is recommended if acute on chronic cholecystitis is clinically suspected. -Pain management as per surgery -lipase: 24 -CBC: WBC- 13. 2 -CMP: NA 142, K 5.1, Cl 105, CO2 28, BUN12, Cr 0.9, glucose 122 -coags: WNL -UA F/u -CXR f/u -EKG f/u - Date & Time Date: 05/09/18 Time: 06:12 <Anastacio Christian - Last Filed: 05/09/18 19:06> Meds - Medications Medications: Current Medications Acetaminophen (Tylenol 325mg Tab) 650 mg PO Q6 PRN PRN Reason: Pain, Mild (1-3) Docusate Sodium (Colace) 100 mg PO BID KVNG Last Admin: 05/09/18 18:22 Dose: 100 mg Sodium Chloride (Sodium Chloride 0.9%) 1,000 mls @ 125 mls/hr IV .Q8H KVNG Piperacillin Sod/Tazobactam Sod (Zosyn 3.375 Gm Iv Premix) 3.375 gm in 50 mls @ 100 mls/hr IVPB Q6H KVNG PRN Reason: Protocol Last Admin: 05/09/18 17:00 Dose: 100 mls/hr Ibuprofen (Motrin Tab) 400 mg PO Q6 PRN PRN Reason: Pain, Mild (1-3) Last Admin: 05/09/18 01:56 Dose: 400 mg Ondansetron HCl (Zofran Inj) 4 mg IVP Q6 PRN PRN Reason: Nausea/Vomiting Oxycodone HCl (Oxycodone Immediate Release Tab) 5 mg PO Q4H PRN PRN Reason: Pain, moderate (4-7) Last Admin: 05/09/18 17:18 Dose: 5 mg Results - Vital Signs Recent Vital Signs: Last Vital Signs Temp 99 F 05/09/18 15:00 Pulse 59 L 05/09/18 15:00 Resp 20 05/09/18 15:00 BP 143/79 05/09/18 15:00 Pulse Ox 92 L 05/09/18 15:00 - Labs Result Diagrams: 05/09/18 07:53 05/09/18 07:53 Labs: Laboratory Results - last 24 hr 05/08/18 05/08/18 05/08/18 19:24 19:24 19:24 WBC 13.2 H RBC 4.95 Hgb 14.7 Hct 44.6 MCV 90.1 MCH 29.7 MCHC 32.9 L RDW 14.6 H Plt Count 170 MPV 10.1 Neut % (Auto) 80.9 H Lymph % (Auto) 10.1 L [place] % (Auto) 7.5 Eos % (Auto) 1.0 Baso % (Auto) 0.5 Neut # (Auto) 10.7 H Lymph # (Auto) 1.3 [place]ro # (Auto) 1.0 H Eos # (Auto) 0.1 Baso # (Auto) 0.1 Neutrophils % (Manual) Band Neutrophils % Lymphocytes % (Manual) Monocytes % (Manual) Eosinophils % (Manual) Platelet Estimate RBC Morphology PT 10.9 INR 1.0 APTT 31 Puncture Site pCO2 pO2 HCO3 ABG pH ABG Total CO2 ABG O2 Saturation ABG Base Excess ABG Hemoglobin ABG Carboxyhemoglobin POC ABG HHb (Measured) ABG Methemoglobin Dnoato Test A-a O2 Difference Respiratory Index Hgb O2 Saturation FiO2 Sodium 142 Potassium 5.1 Chloride 105 Carbon Dioxide 28 Anion Gap 15 BUN 13 Creatinine 0.9 Est GFR ( Amer) > 60 Est GFR (Non-Af Amer) > 60 POC Glucose (mg/dL) Random Glucose 122 H Calcium 9.5 Total Bilirubin 0.9 AST 38 ALT 23 Alkaline Phosphatase 59 Total Creatine Kinase CK-MB (Mass) Troponin I Total Protein 7.3 Albumin 4.3 Globulin 3.0 Albumin/Globulin Ratio 1.5 Lipase 24 Urine Color Urine Clarity Urine pH Ur Specific Frederick Urine Protein Urine Glucose (UA) Urine Ketones Urine Blood Urine Nitrate Urine Bilirubin Urine Urobilinogen Ur Leukocyte Esterase Urine WBC (Auto) Urine RBC (Auto) Ur Squamous Epith Cells Urine Bacteria 05/08/18 05/08/18 05/09/18 22:44 23:00 07:11 WBC RBC Hgb Hct MCV MCH MCHC RDW Plt Count MPV Neut % (Auto) Lymph % (Auto) [place]ferro % (Auto) Eos % (Auto) Baso % (Auto) Neut # (Auto) Lymph # (Auto) [place] # (Auto) Eos # (Auto) Baso # (Auto) Neutrophils % (Manual) Band Neutrophils % Lymphocytes % (Manual) Monocytes % (Manual) Eosinophils % (Manual) Platelet Estimate RBC Morphology PT INR APTT Puncture Site pCO2 pO2 HCO3 ABG pH ABG Total CO2 ABG O2 Saturation ABG Base Excess ABG Hemoglobin ABG Carboxyhemoglobin POC ABG HHb (Measured) ABG Methemoglobin Donato Test A-a O2 Difference Respiratory Index Hgb O2 Saturation FiO2 Sodium Potassium Chloride Carbon Dioxide Anion Gap BUN Creatinine Est GFR ( Amer) Est GFR (Non-Af Amer) POC Glucose (mg/dL) 144 H 142 H Random Glucose Calcium Total Bilirubin AST ALT Alkaline Phosphatase Total Creatine Kinase CK-MB (Mass) Troponin I 0.0200 Total Protein Albumin Globulin Albumin/Globulin Ratio Lipase Urine Color Urine Clarity Urine pH Ur Specific Frederick Urine Protein Urine Glucose (UA) Urine Ketones Urine Blood Urine Nitrate Urine Bilirubin Urine Urobilinogen Ur Leukocyte Esterase Urine WBC (Auto) Urine RBC (Auto) Ur Squamous Epith Cells Urine Bacteria 05/09/18 05/09/18 05/09/18 07:53 07:53 11:09 WBC 12.9 H RBC 4.79 Hgb 14.3 Hct 42.9 MCV 89.5 MCH 29.8 MCHC 33.3 RDW 14.5 Plt Count 167 MPV 11.1 Neut % (Auto) 83.3 H Lymph % (Auto) 8.0 L [place] % (Auto) 8.3 Eos % (Auto) 0.1 Baso % (Auto) 0.3 Neut # (Auto) 10.8 H Lymph # (Auto) 1.0 [place] # (Auto) 1.1 H Eos # (Auto) 0.0 Baso # (Auto) 0.0 Neutrophils % (Manual) 82 H Band Neutrophils % 1 Lymphocytes % (Manual) 10 L Monocytes % (Manual) 6 Eosinophils % (Manual) 1 Platelet Estimate Normal RBC Morphology Normal PT INR APTT Puncture Site pCO2 pO2 HCO3 ABG pH ABG Total CO2 ABG O2 Saturation ABG Base Excess ABG Hemoglobin ABG Carboxyhemoglobin POC ABG HHb (Measured) ABG Methemoglobin Donato Test A-a O2 Difference Respiratory Index Hgb O2 Saturation FiO2 Sodium 139 Potassium 4.2 Chloride 102 Carbon Dioxide 24 Anion Gap 18 BUN 13 Creatinine 0.7 L Est GFR ( Amer) > 60 Est GFR (Non-Af Amer) > 60 POC Glucose (mg/dL) 132 H Random Glucose 137 H Calcium 9.8 Total Bilirubin 1.2 AST 63 H D ALT 52 Alkaline Phosphatase 75 Total Creatine Kinase CK-MB (Mass) Troponin I Total Protein 6.7 Albumin 4.1 Globulin 2.6 Albumin/Globulin Ratio 1.6 Lipase Urine Color Urine Clarity Urine pH Ur Specific [place] Urine Protein Urine Glucose (UA) Urine Ketones Urine Blood Urine Nitrate Urine Bilirubin Urine Urobilinogen Ur Leukocyte Esterase Urine WBC (Auto) Urine RBC (Auto) Ur Squamous Epith Cells Urine Bacteria 05/09/18 05/09/18 05/09/18 14:16 14:16 16:55 WBC RBC Hgb Hct MCV MCH MCHC RDW Plt Count MPV Neut % (Auto) Lymph % (Auto) [place] % (Auto) Eos % (Auto) Baso % (Auto) Neut # (Auto) Lymph # (Auto) [place] # (Auto) Eos # (Auto) Baso # (Auto) Neutrophils % (Manual) Band Neutrophils % Lymphocytes % (Manual) Monocytes % (Manual) Eosinophils % (Manual) Platelet Estimate RBC Morphology PT INR APTT Puncture Site Rra pCO2 40 pO2 48 L HCO3 25.1 ABG pH 7.41 ABG Total CO2 26.6 ABG O2 Saturation 87.2 L ABG Base Excess 0.7 ABG Hemoglobin 14.1 ABG Carboxyhemoglobin 1.0 POC ABG HHb (Measured) 12.6 H ABG Methemoglobin 0.9 Donato Test Pos A-a O2 Difference 52.0 Respiratory Index 1.1 Hgb O2 Saturation 85.5 L FiO2 21.0 Sodium Potassium Chloride Carbon Dioxide Anion Gap BUN Creatinine Est GFR ( Amer) Est GFR (Non-Af Amer) POC Glucose (mg/dL) Random Glucose Calcium Total Bilirubin AST ALT Alkaline Phosphatase Total Creatine Kinase 106 CK-MB (Mass) 1.41 Troponin I 0.0220 Total Protein Albumin Globulin Albumin/Globulin Ratio Lipase Urine Color Adela Urine Clarity Hazy Urine pH 5.0 Ur Specific Frederick 1.024 Urine Protein 1+ H Urine Glucose (UA) 1+ H Urine Ketones Negative Urine Blood Negative Urine Nitrate Negative Urine Bilirubin Negative Urine Urobilinogen Normal Ur Leukocyte Esterase Neg Urine WBC (Auto) 5 Urine RBC (Auto) 2 Ur Squamous Epith Cells < 1 Urine Bacteria Rare 05/09/18 17:33 WBC RBC Hgb Hct MCV MCH MCHC RDW Plt Count MPV Neut % (Auto) Lymph % (Auto) [place] % (Auto) Eos % (Auto) Baso % (Auto) Neut # (Auto) Lymph # (Auto) [place] # (Auto) Eos # (Auto) Baso # (Auto) Neutrophils % (Manual) Band Neutrophils % Lymphocytes % (Manual) Monocytes % (Manual) Eosinophils % (Manual) Platelet Estimate RBC Morphology PT INR APTT Puncture Site pCO2 pO2 HCO3 ABG pH ABG Total CO2 ABG O2 Saturation ABG Base Excess ABG Hemoglobin ABG Carboxyhemoglobin POC ABG HHb (Measured) ABG Methemoglobin Donato Test A-a O2 Difference Respiratory Index Hgb O2 Saturation FiO2 Sodium Potassium Chloride Carbon Dioxide Anion Gap BUN Creatinine Est GFR ( Amer) Est GFR (Non-Af Amer) POC Glucose (mg/dL) 124 H Random Glucose Calcium Total Bilirubin AST ALT Alkaline Phosphatase Total Creatine Kinase CK-MB (Mass) Troponin I Total Protein Albumin Globulin Albumin/Globulin Ratio Lipase Urine Color Urine Clarity Urine pH Ur Specific [place] Urine Protein Urine Glucose (UA) Urine Ketones Urine Blood Urine Nitrate Urine Bilirubin Urine Urobilinogen Ur Leukocyte Esterase Urine WBC (Auto) Urine RBC (Auto) Ur Squamous Epith Cells Urine Bacteria Assessment & Plan - Date & Time Date: 05/09/18 (I have seen and examined the patient. I agree with the findings and plan of care as documented by Dr. Samayoa. Patient here with abdominal pain and cholelithiasis. Will medically optimize. EKG, CXR, coags, CBC, CMP. Monitor for acute changes.) Time: 19:04 Attending/Attestation - Attestation I have personally seen and examined this patient.: Yes I have fully participated in the care of the patient.: Yes I have reviewed all pertinent clinical information: Yes
[2018-05-09] MEDS: Oxycodone/Acetaminophen 5/325 mg Tab PO PRN (03:42)
--- NOTE | 2018-05-09 07:43 | CP.PCM.HP ---
<Elia Braden - Last Filed: 05/09/18 07:40> History of Present Illness - History of Present Illness History of Present Illness: General Surgery H&P for Dr. Nesbitt This is 53M with no PMH who presents with intractable abdominal pain over the past 24 hours. He reports that he had a similar episode about 3 months ago and that he saw Dr. Nesbitt who said he would need a cholecystectomy in the near future. He did not followup because he was asymptomatic however now his symptoms have returned. Cramping abdominal pain located in the right upper quadrant. He denies any fevers chill chest pain nausea vomiting or diarrhea at home. He reports nothing makes it better and nothing makes it worse. PMH: Denies PSH: Inginal hernia repair 10 years ago Meds: Denies All: Denies Social: Denies Vices Present on Admission - Present on Admission Any Indicators Present on Admission: No Review of Systems - Review of Systems Review of Systems: - Review of Systems All systems: reviewed and no additional remarkable complaints except - Constitutional Constitutional: absent: Anorexia, Chills - EENT Eyes: absent: Blind Spots, Blurred Vision Ears: absent: Ear Pain, Tinnitus - Cardiovascular Cardiovascular: absent: Chest Pain, Dyspnea - Respiratory Respiratory: absent: Cough, Dyspnea - Gastrointestinal Gastrointestinal: Abdominal Pain, Bloating. absent: Belching, Diarrhea, Melena , Nausea, Vomiting - Genitourinary Genitourinary: absent: Difficulty Urinating, Dysuria - Integumentary Integumentary: absent: Bleeding Lesions, Rash Past Patient History - Infectious Disease Hx of Infectious Diseases: None - Past Medical History & Family History Past Medical History?: Yes - Past Social History Smoking Status: Former Smoker - CARDIAC Hx Cardiac Disorders: No - PULMONARY Hx Respiratory Disorders: No - NEUROLOGICAL Hx Neurological Disorder: No - HEENT Hx HEENT Problems: No - RENAL Hx Chronic Kidney Disease: No - ENDOCRINE/METABOLIC Hx Endocrine Disorders: No - HEMATOLOGICAL/ONCOLOGICAL Hx Blood Disorders: No - INTEGUMENTARY Hx Dermatological Problems: No - MUSCULOSKELETAL/RHEUMATOLOGICAL Hx Musculoskeletal Disorders: No Hx Falls: No - GASTROINTESTINAL Hx Gall Bladder Disease: Yes - GENITOURINARY/GYNECOLOGICAL Hx Genitourinary Disorders: Yes (SEE COMMENT) Other/Comment: RIGHT INGUINAL HERNIA SX - PSYCHIATRIC Hx Substance Use: No - SURGICAL HISTORY Hx Surgeries: Yes Hx Herniorrhaphy: Yes - ANESTHESIA Hx Anesthesia: Yes Hx Anesthesia Reactions: No Hx Malignant Hyperthermia: No Meds Allergies/Adverse Reactions: Allergies Allergy/AdvReac Type Severity Reaction Status Date / Time No Known Allergies Allergy Verified 12/25/17 07:36 Physical Exam - Constitutional Additional comments: - Constitutional Appears: Non-toxic, No Acute Distress - Head Exam Head Exam: ATRAUMATIC, NORMAL INSPECTION - Eye Exam Eye Exam: EOMI, Normal appearance - ENT Exam ENT Exam: Mucous Membranes Moist, Normal Exam - Neck Exam Neck exam: Positive for: Normal Inspection - Respiratory Exam Respiratory Exam: NORMAL BREATHING PATTERN - Cardiovascular Exam Cardiovascular Exam: +S1, +S2 - GI/Abdominal Exam GI & Abdominal Exam: Soft, Tenderness. absent: Distended, Firm, Guarding, Hernia, Rigid - Extremities Exam Extremities exam: Positive for: normal inspection - Neurological Exam Neurological exam: Alert, Oriented x3 - Psychiatric Exam Psychiatric exam: Normal Affect, Normal Mood - Skin Skin Exam: Dry, Intact Results - Vital Signs Recent Vital Signs: Last Vital Signs Temp 98 F 05/09/18 00:21 Pulse 63 05/09/18 00:21 Resp 20 05/09/18 00:21 BP 122/69 05/09/18 00:21 Pulse Ox 96 05/09/18 00:21 - Labs Result Diagrams: 05/08/18 19:24 05/08/18 19:24 Labs: Laboratory Results - last 24 hr 05/08/18 05/08/18 05/08/18 19:24 19:24 19:24 WBC 13.2 H RBC 4.95 Hgb 14.7 Hct 44.6 MCV 90.1 MCH 29.7 MCHC 32.9 L RDW 14.6 H Plt Count 170 MPV 10.1 Neut % (Auto) 80.9 H Lymph % (Auto) 10.1 L Ward % (Auto) 7.5 Eos % (Auto) 1.0 Baso % (Auto) 0.5 Neut # (Auto) 10.7 H Lymph # (Auto) 1.3 Ward # (Auto) 1.0 H Eos # (Auto) 0.1 Baso # (Auto) 0.1 PT 10.9 INR 1.0 APTT 31 Sodium 142 Potassium 5.1 Chloride 105 Carbon Dioxide 28 Anion Gap 15 BUN 13 Creatinine 0.9 Est GFR ( Amer) > 60 Est GFR (Non-Af Amer) > 60 POC Glucose (mg/dL) Random Glucose 122 H Calcium 9.5 Total Bilirubin 0.9 AST 38 ALT 23 Alkaline Phosphatase 59 Troponin I Total Protein 7.3 Albumin 4.3 Globulin 3.0 Albumin/Globulin Ratio 1.5 Lipase 24 05/08/18 05/08/18 05/09/18 22:44 23:00 07:11 WBC RBC Hgb Hct MCV MCH MCHC RDW Plt Count MPV Neut % (Auto) Lymph % (Auto) Ward % (Auto) Eos % (Auto) Baso % (Auto) Neut # (Auto) Lymph # (Auto) Ward # (Auto) Eos # (Auto) Baso # (Auto) PT INR APTT Sodium Potassium Chloride Carbon Dioxide Anion Gap BUN Creatinine Est GFR ( Amer) Est GFR (Non-Af Amer) POC Glucose (mg/dL) 144 H 142 H Random Glucose Calcium Total Bilirubin AST ALT Alkaline Phosphatase Troponin I 0.0200 Total Protein Albumin Globulin Albumin/Globulin Ratio Lipase Assessment & Plan - Assessment and Plan (Free Text) Assessment: 53M with symptomatic cholelithiasis Plan: Regular Diet Or Thursday for Robotic [place] Consult medicine for medical clearance EKG CXR AM Labs F/U US D/W Dr. Laz Braden PGY3 <Fantasma Nesbitt - Last Filed: 05/15/18 22:07> Results - Vital Signs Recent Vital Signs: Last Vital Signs Temp 97.3 F L 05/15/18 16:00 Pulse 55 L 05/15/18 16:00 Resp 20 05/15/18 16:00 BP 118/78 05/15/18 16:00 Pulse Ox 97 05/15/18 16:00 - Labs Result Diagrams: 05/13/18 07:50 05/13/18 07:50 Labs: Laboratory Results - last 24 hr 05/15/18 05/15/18 06:35 11:10 POC Glucose (mg/dL) 115 H 107 Attending/Attestation - Attestation I have personally seen and examined this patient.: Yes I have fully participated in the care of the patient.: Yes I have reviewed all pertinent clinical information: Yes Notes (Text): Pt was seen and examined at bedside Agree with above note and assessment Pt with RUQ pain and tenderness Labs and radiology reviewed Ass: Acute Cholecystitis and Cholelithiasis Plan : Medicine consult Possible Lap Cholecystectomy tomorrow Consent EKG, CXR NPO, IVF Plan d.w pt in detail. Risk and benefit explained in detail.
[2018-05-09 08:06] LABS: BASO % 0.3 % (0.0-2.0); EOS % 0.1 % (0.0-4.0); HEMOGLOBIN 14.3 g/dL (12.0-18.0); MEAN CELL VOLUME 89.5 fL (80.0-94.0); MEAN CORPUSCULAR HEMOGLOBIN 29.8 pg (27.0-31.0); MEAN CORPUSCULAR HGB CONC 33.3 g/dL (33.0-37.0); MEAN PLATELET VOLUME 11.1 fL (7.2-11.7); MONO # 1.1 K/uL (0.0-0.8); MONO % 8.3 % (0.0-10.0); NEUT # 10.8 K/uL (1.8-7.0); NEUT % 83.3 % (50.0-75.0); PLATELET COUNT 167 K/uL (130-400); RBC 4.79 Mil/uL (4.40-5.90); RED CELL DISTRIBUTION WIDTH 14.5 % (11.5-14.5); WHITE BLOOD COUNT 12.9 K/uL (4.8-10.8)
[2018-05-09 08:20] LABS: ALB/GLOB RATIO 1.6 (1.0-2.1); ALBUMIN 4.1 g/dL (3.5-5.0); ALT/SGPT 52 U/L (21-72); AST/SGOT 63 U/L (17-59); BLOOD UREA NITROGEN 13 mg/dL (9-20); CALCIUM 9.8 mg/dl (8.6-10.4); GFR AFRICAN-AMERICAN > 60; GFR NON-AFRICAN AMERICAN > 60
--- NOTE | 2018-05-09 08:33 | RAD ---
PROCEDURE: CHEST RADIOGRAPH, 1 VIEW HISTORY: preop COMPARISON: Comparison chest 08/20/2018. FINDINGS: LUNGS: Poor inspiration with low lung volumes, crowded bronchovascular markings and mild bibasilar atelectasis. Persistent elevation right hemidiaphragm possibly due to eventration. PLEURA: No pneumothorax or pleural fluid seen. CARDIOVASCULAR: Cardiomegaly. OSSEOUS STRUCTURES: No significant abnormalities. VISUALIZED UPPER ABDOMEN: Normal. OTHER FINDINGS: None. IMPRESSION: Poor inspiration with low lung volumes, crowded bronchovascular markings and mild bibasilar atelectasis. Persistent elevation right hemidiaphragm possibly due to eventration. Cardiomegaly.
--- NOTE | 2018-05-09 08:42 | CP.PCM.PN ---
<Srinivas Kumar - Last Filed: 05/09/18 08:44> Subjective - Date & Time of Evaluation Date of Evaluation: 05/09/18 Time of Evaluation: 08:42 - Subjective Subjective: Surgery: Dr. Nesbitt Pt seen and examined. Continues to have pain overnight. Is tolerating diet, no N /V. Objective - Vital Signs/Intake and Output Vital Signs (last 24 hours): Temp Pulse Resp BP Pulse Ox 99.5 F 60 20 110/70 95 05/09/18 08:06 05/09/18 08:06 05/09/18 08:06 05/09/18 08:06 05/09/18 08:06 Intake and Output: 05/09/18 05/09/18 06:59 18:59 Intake Total 200 Balance 200 - Medications Medications: Current Medications Acetaminophen (Tylenol 325mg Tab) 650 mg PO Q6 PRN PRN Reason: Pain, Mild (1-3) Docusate Sodium (Colace) 100 mg PO BID KVNG Ibuprofen (Motrin Tab) 400 mg PO Q6 PRN PRN Reason: Pain, Mild (1-3) Last Admin: 05/09/18 01:56 Dose: 400 mg Ondansetron HCl (Zofran Inj) 4 mg IVP Q6 PRN PRN Reason: Nausea/Vomiting Oxycodone HCl (Oxycodone Immediate Release Tab) 5 mg PO Q4H PRN PRN Reason: Pain, moderate (4-7) - Labs Labs: 05/09/18 07:53 05/09/18 07:53 PT 10.9 SECONDS (9.7-12.2) 05/08/18 19:24 INR 1.0 05/08/18 19:24 APTT 31 SECONDS (21-34) 05/08/18 19:24 - Constitutional Appears: Non-toxic, No Acute Distress - Head Exam Head Exam: ATRAUMATIC, NORMOCEPHALIC - Eye Exam Eye Exam: EOMI - ENT Exam ENT Exam: Mucous Membranes Moist - Neck Exam Neck Exam: Full ROM - Respiratory Exam Respiratory Exam: NORMAL BREATHING PATTERN. absent: Accessory Muscle Use, Respiratory Distress - Cardiovascular Exam Cardiovascular Exam: REGULAR RHYTHM - GI/Abdominal Exam GI & Abdominal Exam: Soft, Tenderness (RUQ). absent: Distended, Firm, Guarding , Rigid - Extremities Exam Extremities Exam: absent: Calf Tenderness, Pedal Edema - Neurological Exam Neurological Exam: Alert, Awake, Oriented x3 Assessment and Plan - Assessment and Plan (Free Text) Assessment: 53M w. biliary colic -OR tomorrow -NPO at [place] -c/w pain meds -d/w attending Stacy PGY4 <Fantasma Nesbitt - Last Filed: 05/15/18 22:09> Objective - Vital Signs/Intake and Output Vital Signs (last 24 hours): Temp Pulse Resp BP Pulse Ox 97.3 F L 55 L 20 118/78 97 05/15/18 16:00 05/15/18 16:00 05/15/18 16:00 05/15/18 16:00 05/15/18 16:00 Intake and Output: 05/15/18 05/16/18 18:59 06:59 Intake Total 720 Balance 720 - Labs Labs: 05/13/18 07:50 05/13/18 07:50 PT 10.9 SECONDS (9.7-12.2) 05/08/18 19:24 INR 1.0 05/08/18 19:24 APTT 31 SECONDS (21-34) 05/08/18 19:24 Attending/Attestation - Attestation I have personally seen and examined this patient.: Yes I have fully participated in the care of the patient.: Yes I have reviewed all pertinent clinical information, including history, physical exam and plan: Yes Notes (Text): Pt was seen and examined at bedside Agree with above note and assessment Pt has EKG changes with bradycardia Cardiolgoy consult Echocardiogram c.w IV antibiotics Plan d.w pt in detail.
[2018-05-09] MEDS: Piperacill/Tazo 3.375gm in Dex 3.375 GM/50 ML BAG IVPB SCH ×3 (10:09→22:24)
[2018-05-09] MEDS: oxyCODONE 5 mg Immediate Release Tab PO PRN ×2 (10:19→17:18)
[2018-05-09 10:30] LABS: BANDS 1 % (0-2); EOSINOPHIL 1 % (0-4); LYMPHOCYTE 10 % (20-40); TOTAL CELLS COUNTED 100
[2018-05-09 10:31] LABS: MONOCYTE 6 % (0-10); NEUTROPHIL 82 % (50-75); PLATELET ESTIMATE NORMAL (NORMAL)
--- NOTE | 2018-05-09 11:08 | CP.PCM.PN ---
<Roberta Garcia V - Last Filed: 05/09/18 19:33> Objective - Vital Signs/Intake and Output Vital Signs (last 24 hours): Temp Pulse Resp BP Pulse Ox 99.5 F 60 20 110/70 95 05/09/18 08:06 05/09/18 08:06 05/09/18 08:06 05/09/18 08:06 05/09/18 08:06 Intake and Output: 05/09/18 05/09/18 06:59 18:59 Intake Total 200 Balance 200 - Medications Medications: Current Medications Acetaminophen (Tylenol 325mg Tab) 650 mg PO Q6 PRN PRN Reason: Pain, Mild (1-3) Docusate Sodium (Colace) 100 mg PO BID [facility] Last Admin: 05/09/18 10:08 Dose: 100 mg Sodium Chloride (Sodium Chloride 0.9%) 1,000 mls @ 125 mls/hr IV .Q8H [facility] Piperacillin Sod/Tazobactam Sod (Zosyn 3.375 Gm Iv Premix) 3.375 gm in 50 mls @ 100 mls/hr IVPB Q6H [facility] PRN Reason: Protocol Last Admin: 05/09/18 10:09 Dose: 100 mls/hr Ibuprofen (Motrin Tab) 400 mg PO Q6 PRN PRN Reason: Pain, Mild (1-3) Last Admin: 05/09/18 01:56 Dose: 400 mg Ondansetron HCl (Zofran Inj) 4 mg IVP Q6 PRN PRN Reason: Nausea/Vomiting Oxycodone HCl (Oxycodone Immediate Release Tab) 5 mg PO Q4H PRN PRN Reason: Pain, moderate (4-7) Last Admin: 05/09/18 10:19 Dose: 5 mg - Labs Labs: 05/09/18 07:53 05/09/18 07:53 PT 10.9 SECONDS (9.7-12.2) 05/08/18 19:24 INR 1.0 05/08/18 19:24 APTT 31 SECONDS (21-34) 05/08/18 19:24 Attending/Attestation - Attestation I have personally seen and examined this patient.: Yes I have fully participated in the care of the patient.: Yes I have reviewed all pertinent clinical information, including history, physical exam and plan: Yes Notes (Text): Patient seen, examined, and case discussed with day-time resident. Medicine consult for medical clearance requested by general surgery. Patient admitted for symptomatic biliary colic associated pain. Patient reports he has not seen a primary care doctor for about 5 years. Patient denies any medical history. Patient reports he has right upper quadrant pain which is limiting his breathing. I have reviewed patient's EKG noted flipped T waves in V4 V5 V6, flipped T-wave in lead 1 and aVL which are changes from prior EKG noted in the EMR. Patient has echocardiogram performed 2014 noted for dilated left atrium. Patient does have initial troponin which is negative. We will repeat EKG and cardiac enzymes X2, 6 hours and monitor on telemetry for 24hours. Patient's sugar is elevated without diagnosis of diabetes. Patient's chest x-ray is abnormal unclear if it's because patient is unable to take in adequate breath in will order CT chest without contrast for better assessment. We'll order lipid panel A1c TSH I have discussed with patient's surgeon who is primarily on the case for preference for cardiology who he would like. He requests for Dr. Good to be on case for cardiac clearance. discussed with Dr. Good recommends for a Lexiscan stress test for tomorrow agrees with telemetry monitoring as well as echocardiogram. Patient's chest xray abnormal, ordered for CT chest and ABG; hypoxic; only occasional smoking use. Discussed with Dr. Squires, pulmonary environmental attorney, recommend for CT angio in the AM, will see the patient in the morning. Assessment/Plan 1. Cholelithiasis Symptomatic biliary colic Assessment/Plan * General Surgery (Dr. Nesbitt) on case * Preoperative/intraoperative/postoperative per surgery * Abd US 05/08/18: Cholelithiasis. No sonographic Jones sign. Hepatomegaly with increased hepatic echotexture likely due to fatty infiltration however other infiltrative hepatic cellular disease process not excluded. * Abd US 12/21/17: There are gallstones, gallbladder sludge with 3 mm gallbladder wall thickening.There was no right upper quadrant tenderness during the sonographic examination. Correlation with patient's pain medication status is recommended.Correlation with clinical data is recommended if acute on chronic cholecystitis is clinically suspected. * lipase: 24 2. Abnormal EKG Assessment/Plan * Patient has abnormal EKG, flipped T waves in lateral leads, and V1 and AVL changed from prior EKG. * Order for EKG and cardiac enzymes, Q 6hours X2 * Monitor on telemetry for 24 hours * Recommend for cardiology consult-->Discussed with primary requests for Dr. Good for cardiac clearance--> recommends for echocardiogram and Lexiscan stress test * Echo from 2015 showing dilated left atrium, ordered for new echocardiogram * Check cardiac risk factors: a1c, lipid panel, probnp 3. Abnormal Chest xray Hypoxia Assessment/Plan * Patient has abnormal chest xray unclear if due to poor inspiratory effort * CT Chest w/o contrast ordered * Patient is occasional smoker about 2-3 cigarettes a day for 30 years-->he has been advised to stop smoking * ABG stat-->hypoxia--> started on non-way breather * Pulmonary (Dr. Squires) on consult--> hypoxia, abnormal chest xeay 4. Hyperglycemia * Order hgba1c * Accuchecks QAC and HS * Hypoglycemic protocol. Discussed with general surgery, unable to clear patient at this time given abnormal EKG and abnormal chest xray. Recommending for cardiac clearance. Will transfer patient to telemetry for monitoring 24 hours in light of abnormal EKG and serial ekg/romis; Patient is noted to be hypoxic, pulmonary on consult will follow-up. <Tesfaye Puente - Last Filed: 05/09/18 23:21> Subjective - Date & Time of Evaluation Date of Evaluation: 05/09/18 Time of Evaluation: 11:08 - Subjective Subjective: Progress Note for Hospitalist service Patient seen and examined at bedside. Medicine was consulted for medical optimization prior to cholecystectomy. He states that he is experiencing 8/10 abdominal pain in the RUQ, that makes it hard for him to breathe. Admits to prior known history of gallstones. He denies headache, dizziness, chest pain, palpitations, shortness of breath, nausea, vomiting, diarrhea, calf pain. Objective - Vital Signs/Intake and Output Vital Signs (last 24 hours): Temp Pulse Resp BP Pulse Ox 99.5 F 60 20 110/70 95 05/09/18 08:06 05/09/18 08:06 05/09/18 08:06 05/09/18 08:06 05/09/18 08:06 Intake and Output: 05/09/18 05/09/18 06:59 18:59 Intake Total 200 Balance 200 - Medications Medications: Current Medications Acetaminophen (Tylenol 325mg Tab) 650 mg PO Q6 PRN PRN Reason: Pain, Mild (1-3) Docusate Sodium (Colace) 100 mg PO BID [facility] Last Admin: 05/09/18 10:08 Dose: 100 mg Sodium Chloride (Sodium Chloride 0.9%) 1,000 mls @ 125 mls/hr IV .Q8H [facility] Piperacillin Sod/Tazobactam Sod (Zosyn 3.375 Gm Iv Premix) 3.375 gm in 50 mls @ 100 mls/hr IVPB Q6H [facility] PRN Reason: Protocol Last Admin: 05/09/18 10:09 Dose: 100 mls/hr Ibuprofen (Motrin Tab) 400 mg PO Q6 PRN PRN Reason: Pain, Mild (1-3) Last Admin: 05/09/18 01:56 Dose: 400 mg Ondansetron HCl (Zofran Inj) 4 mg IVP Q6 PRN PRN Reason: Nausea/Vomiting Oxycodone HCl (Oxycodone Immediate Release Tab) 5 mg PO Q4H PRN PRN Reason: Pain, moderate (4-7) Last Admin: 05/09/18 10:19 Dose: 5 mg - Labs Labs: 05/09/18 07:53 05/09/18 07:53 PT 10.9 SECONDS (9.7-12.2) 05/08/18 19:24 INR 1.0 05/08/18 19:24 APTT 31 SECONDS (21-34) 05/08/18 19:24 - Constitutional Appears: Well, No Acute Distress - Head Exam Head Exam: ATRAUMATIC, NORMOCEPHALIC - Eye Exam Eye Exam: EOMI - ENT Exam ENT Exam: Mucous Membranes Moist - Respiratory Exam Respiratory Exam: Clear to Ausculation Bilateral, NORMAL BREATHING PATTERN. absent: Decreased Breath Sounds, Rales, Rhonchi, Wheezes, Respiratory Distress, Stridor - Cardiovascular Exam Cardiovascular Exam: REGULAR RHYTHM, +S1, +S2 - GI/Abdominal Exam GI & Abdominal Exam: Soft, Tenderness (RUQ, (+) Jones's sign ), Normal Bowel Sounds. absent: Firm, Guarding, Rigid - Extremities Exam Extremities Exam: absent: Calf Tenderness, Pedal Edema - Neurological Exam Neurological Exam: Alert, Awake, Oriented x3 Assessment and Plan - Assessment and Plan (Free Text) Assessment: 53 year old male with no known medical history who is evaluated for medical optimization prior to cholecystectomy. Plan: Assessment/plan. Cholelithiasis -Abd US 05/08/18: Cholelithiasis. No sonographic Jones sign. Hepatomegaly with increased hepatic echotexture likely due to fatty infiltration however other infiltrative hepatic cellular disease process not excluded. -Abd US 12/21/17: There are gallstones, gallbladder sludge with 3 mm gallbladder wall thickening.There was no right upper quadrant tenderness during the sonographic examination. Correlation with patient's pain medication status is recommended.Correlation with clinical data is recommended if acute on chronic cholecystitis is clinically suspected. -Pain management as per surgery -lipase: 24 -CBC: WBC- 13. 2 --> 12.9 -CMP: NA 142, K 5.1, Cl 105, CO2 28, BUN12, Cr 0.9, glucose 122 -coags: WNL -UA 1+ protein, 1+ glucose Zosyn 3.375g IV Abnormal EKG - T wave inversions Fork Lift Technician Dr. Good consulted, help appreciated CXR Poor inspiration with low lung volumes, crowded bronchovascular markings and mild bibasilar atelectasis. Persistent elevation right hemidiaphragm possibly due to eventration. Cardiomegaly. CT chest: Cardiomegaly. There is a small amount of fluid in the superior pericardial recess as detailed above.Marked elevation right hemidiaphragm likely due to eventration. Compressive type atelectasis right lung base. Minor linear type atelectasis and/or scarring seen in the left lung base lingular and middle lobe regions.No effusion or focal consolidation.Mild fatty hepatic infiltration.Infiltration changes within the mesenteries adjacent to the gallbladder and hepatic flexure region. Rule out cholecystitis. Recommend follow-up gallbladder ultrasound. CT angio follow up EKG new T wave inversions in lateral leads ECHO follow up Troponins x3 neg Hypoxia Construction Worker Dr. Squires consulted, help appreciated. CXR Poor inspiration with low lung volumes, crowded bronchovascular markings and mild bibasilar atelectasis. Persistent elevation right hemidiaphragm possibly due to eventration. Cardiomegaly. CT chest: Cardiomegaly. There is a small amount of fluid in the superior pericardial recess as detailed above.Marked elevation right hemidiaphragm likely due to eventration. Compressive type atelectasis right lung base. Minor linear type atelectasis and/or scarring seen in the left lung base lingular and middle lobe regions.No effusion or focal consolidation.Mild fatty hepatic infiltration.Infiltration changes within the mesenteries adjacent to the gallbladder and hepatic flexure region. Rule out cholecystitis. Recommend follow-up gallbladder ultrasound. ABG pH 7.41 pCO2 40 pO2 48 Placed on 3L O2 via NC Repeat ABG in AM Hyperglycemia Blood sugars elevated -A1c, lipid panel: follow up no prior diagnosis of DM Prophylaxis SCDs PRINCESS Smalls Case discussed with Dr. Garcia
--- NOTE | 2018-05-09 13:58 | US ---
HISTORY: abd pain-RUQ COMPARISON: None. TECHNIQUE: Sonographic evaluation of the right upper quadrant of the abdomen. FINDINGS: LIVER: Enlarged measuring nearly 20 cm. Cm in length. Liver demonstrates smooth contour though increased echogenicity consistent with fatty infiltration however other infiltrative hepatic cellular disease process not excluded. There appears to be some fatty sparing about the gallbladder fossa . No mass. No intrahepatic bile duct dilatation. GALLBLADDER: Cholelithiasis and suspected gallbladder sludge the. No sonographic Jones sign COMMON BILE DUCT: Measures 5.0 mm. No stones. No dilatation. PANCREAS: Pancreas is incompletely seen oval where visible appears grossly unremarkable RIGHT KIDNEY: Measures 10.5 x 4.9 x 5.5 cm in length. Normal echogenicity. No calculus, mass, or hydronephrosis. AORTA: No aneurysmal dilatation. IVC: Unremarkable. OTHER FINDINGS: None . IMPRESSION: Cholelithiasis and probable gallbladder sludge Hepatomegaly with fatty infiltration. Other infiltrative hepatocellular disease process not excluded. The the the
[2018-05-09 14:33] LABS: SQUAMOUS EPITHIAL < 1 /hpf (0-5); URINE BACTERIA RARE (<OCC); URINE BILIRUBIN NEGATIVE (NEGATIVE); URINE BLOOD NEGATIVE (NEGATIVE); URINE CLARITY Hazy (Clear); URINE COLOR Amber (YELLOW); URINE GLUCOSE (UA) 1+ mg/dL (Normal); URINE LEUKOCYTE ESTERASE NEG Leu/uL (Negative); URINE PROTEIN 1+ mg/dL (NEGATIVE); URINE UROBILINOGEN NORMAL mg/dL (0.2-1.0)
[2018-05-09 14:48] LABS: CK-MB 1.41 ng/mL (0.0-3.38); TROPONIN I 0.022 ng/mL (0.00-0.120)
[2018-05-09 17:00] LABS: ABG ALLEN TEST POS; ARTERIAL BLOOD GAS HCO3 25.1 mmol/L (21-28); ARTERIAL BLOOD GAS HEMOGLOBIN 14.1 g/dL (11.7-17.4); ARTERIAL BLOOD GAS O2 SAT 87.2 % (95-98); ARTERIAL BLOOD GAS PCO2 40 mm/Hg (35-45); ARTERIAL BLOOD GAS PH 7.41 (7.35-7.45); ARTERIAL BLOOD GAS PO2 48 mm/Hg (80-100); ARTERIAL BLOOD GAS TCO2 26.6 mmol/L (22-28)
--- NOTE | 2018-05-09 17:22 | CT ---
PROCEDURE: CT Chest without contrast. HISTORY: Abnormal chest x-ray. COMPARISON: Comparison made with chest radiograph dated 2017. TECHNIQUE: Contiguous axial images were obtained through the chest without intravenous contrast enhancement. Sagittal and coronal reconstructions were performed. Radiation dose (DLP): 555.63 mGy-cm. This CT exam was performed using one or more of the following dose reduction techniques: Automated exposure control, adjustment of the mA and/or kV according to patient size, and/or use of iterative reconstruction technique. . FINDINGS: LUNGS: Marked elevation right hemidiaphragm consistent with eventration. Mild compressive type atelectasis seen in the right lung base along with mild dependent type atelectasis both lung bases including. . There appears to be some mild chronic atelectasis and or scarring left lung base lingular, middle lobe and lingular regions. MEDIASTINUM: Heart is enlarged. . There is a small amount of fluid seen in the superior pericardial recess and within the cleft between ascending thoracic aorta and pulmonary trunk. . Ascending thoracic aorta measures approximately 3.6 cm and descending thoracic aorta measures approximately 2.8 cm. Pulmonary trunk measures approximately 3.56 cm. Few tiny nonspecific mediastinal lymph nodes are present. Evaluation for hilar adenopathy is limited due to the lack of circulating intravenous contrast material however there does appear to be at least 1 small calcified right hilar lymph node; rule out prior exposure to granulomatous disease process. Central airways midline and patent. No large central endoluminal lesions. Small hiatal hernia. PLEURA: No evidence of effusion or pneumothorax. BONES: Minor multilevel degenerative spondylosis of the thoracic spine. There are no acute compression fractures no retropulsed fragments UPPER ABDOMEN: The very mild diffuse fatty hepatic infiltration. No obvious hepatic mass or collection seen on this noncontrast study. No adrenal lesions. Pancreas appears atrophic and fatty replaced. Gallbladder is appears moderate to significantly headache distended . There also infiltration changes in the surrounding mesentery abutting the hepatic flexure region as well. Followup gallbladder ultrasound recommended to assess for cholecystitis. OTHER FINDINGS: None. IMPRESSION: Cardiomegaly. There is a small amount of fluid in the superior pericardial recess as detailed above. Marked elevation right hemidiaphragm likely due to eventration. Compressive type atelectasis right lung base. Minor linear type atelectasis and/or scarring seen in the left lung base lingular and middle lobe regions. No effusion or focal consolidation. Mild fatty hepatic infiltration. Infiltration changes within the mesenteries adjacent to the gallbladder and hepatic flexure region. Rule out cholecystitis. Recommend follow-up gallbladder ultrasound.
[2018-05-09 20:13] LABS: CK-MB 1.08 ng/mL (0.0-3.38); TROPONIN I 0.024 ng/mL (0.00-0.120)
[2018-05-10] MEDS: Sodium Chloride 0.9% 1,000 ML IV SCH ×3 (01:06→16:00)
[2018-05-10] MEDS: Piperacill/Tazo 3.375gm in Dex 3.375 GM/50 ML BAG IVPB SCH ×4 (04:11→22:26)
[2018-05-10] MEDS: oxyCODONE 5 mg Immediate Release Tab PO PRN (05:38)
[2018-05-10] MEDS ORDERED: Iodixanol 320 MG/ML 100 ML BOTTLE IV ONE (09:27)
--- NOTE | 2018-05-10 10:19 | CP.PCM.PN ---
Subjective - Date & Time of Evaluation Date of Evaluation: 05/10/18 Time of Evaluation: 10:19 - Subjective Subjective: Medicine progress note for Dr. Georgia Pineda. Patient seen and evaluated at bedside. Patient complains of persistent RUQ abdominal pain. States it is difficult to take a deep breath due to the pain. Patient denies chest pain, diaphoresis, headache, nausea, vomiting, fevers and chills. Objective - Vital Signs/Intake and Output Vital Signs (last 24 hours): Temp Pulse Resp BP Pulse Ox 99.3 F 64 20 115/66 95 05/10/18 04:30 05/10/18 04:30 05/10/18 04:30 05/10/18 04:30 05/10/18 04:30 Intake and Output: 05/10/18 05/10/18 06:59 18:59 Intake Total 930 Balance 930 - Medications Medications: Current Medications Acetaminophen (Tylenol 325mg Tab) 650 mg PO Q6 PRN PRN Reason: Pain, Mild (1-3) Docusate Sodium (Colace) 100 mg PO BID [facility] Last Admin: 05/09/18 18:22 Dose: 100 mg Sodium Chloride (Sodium Chloride 0.9%) 1,000 mls @ 125 mls/hr IV .Q8H [facility] Last Admin: 05/10/18 01:06 Dose: 125 mls/hr Piperacillin Sod/Tazobactam Sod (Zosyn 3.375 Gm Iv Premix) 3.375 gm in 50 mls @ 100 mls/hr IVPB Q6H [facility] PRN Reason: Protocol Last Admin: 05/10/18 04:11 Dose: 100 mls/hr Ondansetron HCl (Zofran Inj) 4 mg IVP Q6 PRN PRN Reason: Nausea/Vomiting Oxycodone HCl (Oxycodone Immediate Release Tab) 5 mg PO Q4H PRN PRN Reason: Pain, moderate (4-7) Last Admin: 05/10/18 05:38 Dose: 5 mg - Labs Labs: 05/09/18 07:53 05/09/18 07:53 PT 10.9 SECONDS (9.7-12.2) 05/08/18 19:24 INR 1.0 05/08/18 19:24 APTT 31 SECONDS (21-34) 05/08/18 19:24 - Constitutional Appears: No Acute Distress - Head Exam Head Exam: ATRAUMATIC, NORMOCEPHALIC - Eye Exam Eye Exam: EOMI - ENT Exam ENT Exam: Mucous Membranes Moist - Respiratory Exam Respiratory Exam: Clear to Ausculation Bilateral. absent: Rales, Rhonchi, Wheezes - Cardiovascular Exam Cardiovascular Exam: REGULAR RHYTHM, +S1, +S2 - GI/Abdominal Exam GI & Abdominal Exam: Soft, Tenderness (RUQ tenderness), Normal Bowel Sounds - Extremities Exam Extremities Exam: absent: Pedal Edema, Tenderness - Neurological Exam Neurological Exam: Alert, Awake, Oriented x3 - Psychiatric Exam Psychiatric exam: Normal Mood - Skin Skin Exam: Dry, Intact, Warm Assessment and Plan - Assessment and Plan (Free Text) Plan: 53 yo M with no PMHx admitted for cholelithiasis. Assessment/Plan 1. Cholelithiasis Symptomatic biliary colic Assessment/Plan * General Surgery (Dr. Nesbitt) on case * Preoperative/intraoperative/postoperative per surgery * Abd US 05/08/18: Cholelithiasis. No sonographic Jones sign. Hepatomegaly with increased hepatic echotexture likely due to fatty infiltration however other infiltrative hepatic cellular disease process not excluded. * Abd US 12/21/17: There are gallstones, gallbladder sludge with 3 mm gallbladder wall thickening.There was no right upper quadrant tenderness during the sonographic examination. Correlation with patient's pain medication status is recommended.Correlation with clinical data is recommended if acute on chronic cholecystitis is clinically suspected. * lipase: 24 2. Abnormal EKG Assessment/Plan * Patient has abnormal EKG, flipped T waves in lateral leads, and V1 and AVL changed from prior EKG. * Order for EKG and cardiac enzymes, Q 6hours X2-> negative x 3 * Monitor on telemetry for 24 hours * Recommend for cardiology consult-->Discussed with primary requests for Dr. Good for cardiac clearance--> recommends for echocardiogram and Lexiscan stress test * Echo from 2014 showing dilated left atrium, ordered for new echocardiogram * Check cardiac risk factors: a1c, lipid panel, probnp * Echocardiogram 05/09/18: LVEF= 70%, LV function is hyperdynamic. Transmitral Doppler flow patter is Grade 1 abdnormal relaxation pattern. The apex is spade shaped, and is slit lik, with apical hypertrophy. Impression: non-obrstuctive hypertrophic cardimyopathy, apical variant. * Myocardial perfusion scan 05/10/18: F/u 3. Abnormal Chest xray Assessment/Plan * Patient has abnormal chest xray unclear if due to poor inspiratory effort * 05/08/18 CXR: poor inspiratory low volumes, crowded bronchoalveolar markings. Mild basilar atelectasis. R diaphragm elevated. * CT Chest 05/09/18: Cardiomegaly. There is a small amount of fluid in the superior pericardial recess as detailed above. Marked elevation right hemidiaphragm likely due to eventration. Compressive type atelectasis right lung base. Minor linear type atelectasis and/or scarring seen in the left lung base lingular and middle lobe regions. No effusion or focal consolidation. Mild fatty hepatic infiltration. Infiltration changes within the mesenteries adjacent to the gallbladder and hepatic flexure region. Rule out cholecystitis. Recommend follow-up gallbladder ultrasound. * CT angio 05/10: CT findings highly suspicious for acute cholecystitis with probable focal rupture near the gallbladder fundus. Suboptimal opacification of the pulmonary arteries. No gross central pulmonary embolism. Right lower lobe consolidation. * Pt started on Zosyn 3.375 Q6H on 05/09/18 * Patient is occasional smoker about 2-3 cigarettes a day for 30 years-->he has been advised to stop smoking * ABG stat-->hypoxia--> started on non-way breather * Pulmonary (Dr. Squires) on consult--> hypoxia, abnormal chest xray * recs repeat ABG, 6 minute walk test * 05/10/18 hypoxia resolved 4. Hyperglycemia * Order hgba1c * Accuchecks QAC and HS * Hypoglycemic protocol. Discussed with general surgery, unable to clear patient at this time given abnormal EKG and abnormal chest xray. Recommending for cardiac clearance. F/u myocardial perfusion can; Hypoxemia Resolved
--- NOTE | 2018-05-10 12:35 | CT ---
PROCEDURE: CT Chest with contrast (Pulmonary Angiogram) HISTORY: hypoxia COMPARISON: CT chest dated 05/09/2018. TECHNIQUE: Axial computed tomography images were obtained of the chest in the pulmonary arterial phase of enhancement. Coronal and sagittal reformatted images were created and reviewed. Intravenous contrast dose: 100 mL Visipaque 320 Radiation dose: Total exam DLP = 576.7 mGy-cm. This CT exam was performed using one or more of the following dose reduction techniques: Automated exposure control, adjustment of the mA and/or kV according to patient size, and/or use of iterative reconstruction technique. FINDINGS: PULMONARY ARTERIES: Suboptimal opacification. No gross central pulmonary embolus. AORTA: No acute findings. No thoracic aortic aneurysm. LUNGS: Right lower lobe consolidation. Bibasilar atelectasis. PLEURAL SPACES: Trace right pleural effusion. No pneumothorax. HEART: Unremarkable. No cardiomegaly. No significant pericardial effusion. LYMPH NODES: No lymphadenopathy. BONES, CHEST WALL: Unremarkable. No fracture or destructive lesion OTHER FINDINGS: Dilated gallbladder with markedly thickened edematous wall and pericholecystic fluid. Adjacent 1.2 x 1.9 cm fluid collection adjacent to the gallbladder fundus, not present previously. IMPRESSION: CT findings highly suspicious for acute cholecystitis with probable focal rupture near the gallbladder fundus. Suboptimal opacification of the pulmonary arteries. No gross central pulmonary embolism. Right lower lobe consolidation. Findings conveyed to TAMI Hay by Dr. Hernandez at 12:30 pm on 05/10/2018.
[2018-05-10 14:00] LABS: BASO # 0.1 K/uL (0.0-0.2); BASO % 0.6 % (0.0-2.0); EOS # 0.1 K/uL (0.0-0.7); HEMOGLOBIN 14.4 g/dL (12.0-18.0); LYMPH # 1.4 K/uL (1.0-4.3); LYMPH % 14.1 % (20.0-40.0); MEAN CELL VOLUME 90.3 fL (80.0-94.0); MEAN CORPUSCULAR HEMOGLOBIN 30.6 pg (27.0-31.0); MEAN CORPUSCULAR HGB CONC 33.8 g/dL (33.0-37.0); MEAN PLATELET VOLUME 10.1 fL (7.2-11.7); MONO # 1.3 K/uL (0.0-0.8); MONO % 12.6 % (0.0-10.0); NEUT # 7.4 K/uL (1.8-7.0); NEUT % 71.7 % (50.0-75.0); RBC 4.7 Mil/uL (4.40-5.90); RED CELL DISTRIBUTION WIDTH 14.5 % (11.5-14.5); WHITE BLOOD COUNT 10.3 K/uL (4.8-10.8)
[2018-05-10 14:59] LABS: ALB/GLOB RATIO 1.2 (1.0-2.1); ALBUMIN 3.8 g/dL (3.5-5.0); ALT/SGPT 91 U/L (21-72); AST/SGOT 64 U/L (17-59); BLOOD UREA NITROGEN 14 mg/dL (9-20); CALCIUM 9.4 mg/dl (8.6-10.4); GFR AFRICAN-AMERICAN > 60; GFR NON-AFRICAN AMERICAN > 60
--- NOTE | 2018-05-10 17:43 | CP.PCM.CON ---
History of Present Illness - History of Present Illness History of Present Illness: Pulmonology consulted for abnormal chest X-Ray HPI: 53 year old male patient with no past medical history presented to the ER with intractable abdominal pain. Patient reports the pain as cramping and localized to the RUQ. Patient denies any fevers, shortness of breath, chills , chest pain, nausea, vomiting or diarrhea. Patient denies any history of abnormal chest x-ray's in the past. Patient's chest x-ray on admission showed poor inspiration with low lung volumes, crowded bronchovascular markings and mild bibasilar atelectasis. Persistent elevation right diaphragm. Patient examined this morning at the bedside. Patient is not in acute distress. Patient is afebrile and hypoxemia has resolved, currently 98%. PMH: Denies PSH: Inguinal hernia repair 10 years ago Meds: Denies Social: Occasional smoker about 2-3 cigarettes a day for 30 years. ROS: Constitutional: Patient denies fever and chills. Cardiovascular: Patient denies chest pain, palpitations. Respiratory: Patient denies shortness of breath or cough. Gastrointestinal: Patient denies nausea, vomiting, diarrhea. Physical Exam HEENT: Atraumatic, normocephalic, mucuous membranes moist Repiratory: Clear to auscultation bilaterally. No wheezing or rhonchi. No use of accessory muscles. Cardiovascular: +S1/ S2, regular rate and rhythm GI: Normal bowel sounds in all 4 quadrants, no tenderness, no distention Extremities: No LE edema Neurological: Alert, awake, oriented X3 Assessment: 53 year old male with no past medical history with acute cholelithiasis. Atelectasis cause by biliary pain. 1. Cholelithiasis Status: Acute - General surgery 2. Abnormal chest xray; CAT scan of the chest consistent with right lower lobe consolidation Status: Acute - Patient's hypoxia has resolved; currently at 98% - Repeat ABG - 6 minute walk test - IV antibiotics Past Patient History - Infectious Disease Hx of Infectious Diseases: None - Past Medical History & Family History Past Medical History?: Yes - Past Social History Smoking Status: Former Smoker - CARDIAC Hx Cardiac Disorders: No - PULMONARY Hx Respiratory Disorders: No - NEUROLOGICAL Hx Neurological Disorder: No - HEENT Hx HEENT Problems: No - RENAL Hx Chronic Kidney Disease: No - ENDOCRINE/METABOLIC Hx Endocrine Disorders: No - HEMATOLOGICAL/ONCOLOGICAL Hx Blood Disorders: No - INTEGUMENTARY Hx Dermatological Problems: No - MUSCULOSKELETAL/RHEUMATOLOGICAL Hx Musculoskeletal Disorders: No Hx Falls: No - GASTROINTESTINAL Hx Gall Bladder Disease: Yes - GENITOURINARY/GYNECOLOGICAL Hx Genitourinary Disorders: Yes (SEE COMMENT) Other/Comment: RIGHT INGUINAL HERNIA SX - PSYCHIATRIC Hx Substance Use: No - SURGICAL HISTORY Hx Surgeries: Yes Hx Herniorrhaphy: Yes - ANESTHESIA Hx Anesthesia: Yes Hx Anesthesia Reactions: No Hx Malignant Hyperthermia: No Meds Allergies/Adverse Reactions: Allergies Allergy/AdvReac Type Severity Reaction Status Date / Time No Known Allergies Allergy Verified 12/25/17 07:36 - Medications Medications: Current Medications Acetaminophen (Tylenol 325mg Tab) 650 mg PO Q6 PRN PRN Reason: Pain, Mild (1-3) Docusate Sodium (Colace) 100 mg PO BID [facility] Last Admin: 05/10/18 17:34 Dose: Not Given Sodium Chloride (Sodium Chloride 0.9%) 1,000 mls @ 125 mls/hr IV .Q8H [facility] Last Admin: 05/10/18 16:00 Dose: Not Given Piperacillin Sod/Tazobactam Sod (Zosyn 3.375 Gm Iv Premix) 3.375 gm in 50 mls @ 100 mls/hr IVPB Q6H KVNG PRN Reason: Protocol Last Admin: 05/10/18 16:14 Dose: 100 mls/hr Ondansetron HCl (Zofran Inj) 4 mg IVP Q6 PRN PRN Reason: Nausea/Vomiting Oxycodone HCl (Oxycodone Immediate Release Tab) 5 mg PO Q4H PRN PRN Reason: Pain, moderate (4-7) Last Admin: 05/10/18 05:38 Dose: 5 mg Results - Vital Signs Recent Vital Signs: Last Vital Signs Temp 98.8 F 05/10/18 16:00 Pulse 67 05/10/18 16:00 Resp 20 05/10/18 16:00 BP 117/74 05/10/18 16:00 Pulse Ox 96 05/10/18 16:00 - Labs Result Diagrams: 05/10/18 10:56 05/10/18 13:55 Labs: Laboratory Results - last 24 hr 05/09/18 05/09/18 05/09/18 14:16 19:39 22:08 WBC RBC Hgb Hct MCV MCH MCHC RDW Plt Count MPV Neut % (Auto) Lymph % (Auto) [place] % (Auto) Eos % (Auto) Baso % (Auto) Neut # (Auto) Lymph # (Auto) [place] # (Auto) Eos # (Auto) Baso # (Auto) Sodium Potassium Chloride Carbon Dioxide Anion Gap BUN Creatinine Est GFR ( Amer) Est GFR (Non-Af Amer) POC Glucose (mg/dL) 112 H Random Glucose Hemoglobin A1c 6.2 Calcium Total Bilirubin AST ALT Alkaline Phosphatase Total Creatine Kinase 87 CK-MB (Mass) 1.08 Troponin I 0.0240 Total Protein Albumin Globulin Albumin/Globulin Ratio 05/10/18 05/10/18 05/10/18 06:41 10:56 13:55 WBC 10.3 RBC 4.70 Hgb 14.4 Hct 42.4 MCV 90.3 MCH 30.6 MCHC 33.8 RDW 14.5 Plt Count 157 MPV 10.1 Neut % (Auto) 71.7 Lymph % (Auto) 14.1 L [place] % (Auto) 12.6 H Eos % (Auto) 1.0 Baso % (Auto) 0.6 Neut # (Auto) 7.4 H Lymph # (Auto) 1.4 [place] # (Auto) 1.3 H Eos # (Auto) 0.1 Baso # (Auto) 0.1 Sodium 139 Potassium 3.9 Chloride 101 Carbon Dioxide 28 Anion Gap 15 BUN 14 Creatinine 0.8 Est GFR ( Amer) > 60 Est GFR (Non-Af Amer) > 60 POC Glucose (mg/dL) 109 Random Glucose 103 Hemoglobin A1c Calcium 9.4 Total Bilirubin 1.4 H AST 64 H ALT 91 H D Alkaline Phosphatase 112 Total Creatine Kinase CK-MB (Mass) Troponin I Total Protein 6.8 Albumin 3.8 Globulin 3.0 Albumin/Globulin Ratio 1.2 05/10/18 05/10/18 15:04 16:19 WBC RBC Hgb Hct MCV MCH MCHC RDW Plt Count MPV Neut % (Auto) Lymph % (Auto) [place] % (Auto) Eos % (Auto) Baso % (Auto) Neut # (Auto) Lymph # (Auto) [place] # (Auto) Eos # (Auto) Baso # (Auto) Sodium Potassium Chloride Carbon Dioxide Anion Gap BUN Creatinine Est GFR ( Amer) Est GFR (Non-Af Amer) POC Glucose (mg/dL) 107 99 Random Glucose Hemoglobin A1c Calcium Total Bilirubin AST ALT Alkaline Phosphatase Total Creatine Kinase CK-MB (Mass) Troponin I Total Protein Albumin Globulin Albumin/Globulin Ratio
--- NOTE | 2018-05-10 19:36 | CP.PCM.PN ---
<Pierce Agrawal - Last Filed: 05/10/18 19:37> Subjective - Date & Time of Evaluation Date of Evaluation: 05/10/18 Time of Evaluation: 08:20 - Subjective Subjective: Patient seen and examined. Complains of right upper quadrant pain. Denies fever/ chills. Denies n/v. Objective - Vital Signs/Intake and Output Vital Signs (last 24 hours): Temp Pulse Resp BP Pulse Ox 98.8 F 64 20 117/74 96 05/10/18 16:00 05/10/18 17:30 05/10/18 16:00 05/10/18 16:00 05/10/18 16:00 - Medications Medications: Current Medications Acetaminophen (Tylenol 325mg Tab) 650 mg PO Q6 PRN PRN Reason: Pain, Mild (1-3) Docusate Sodium (Colace) 100 mg PO BID [facility] Last Admin: 05/10/18 17:34 Dose: Not Given Sodium Chloride (Sodium Chloride 0.9%) 1,000 mls @ 125 mls/hr IV .Q8H [facility] Last Admin: 05/10/18 16:00 Dose: Not Given Piperacillin Sod/Tazobactam Sod (Zosyn 3.375 Gm Iv Premix) 3.375 gm in 50 mls @ 100 mls/hr IVPB Q6H KVNG PRN Reason: Protocol Last Admin: 05/10/18 16:14 Dose: 100 mls/hr Ondansetron HCl (Zofran Inj) 4 mg IVP Q6 PRN PRN Reason: Nausea/Vomiting Oxycodone HCl (Oxycodone Immediate Release Tab) 5 mg PO Q4H PRN PRN Reason: Pain, moderate (4-7) Last Admin: 05/10/18 05:38 Dose: 5 mg - Labs Labs: 05/10/18 10:56 05/10/18 13:55 PT 10.9 SECONDS (9.7-12.2) 05/08/18 19:24 INR 1.0 05/08/18 19:24 APTT 31 SECONDS (21-34) 05/08/18 19:24 - Constitutional Appears: No Acute Distress - Eye Exam Eye Exam: Normal appearance - Respiratory Exam Respiratory Exam: NORMAL BREATHING PATTERN - Cardiovascular Exam Cardiovascular Exam: +S1, +S2 - GI/Abdominal Exam GI & Abdominal Exam: Soft, Tenderness. absent: Hernia, Rebound - Neurological Exam Neurological Exam: Alert, Awake, Oriented x3 - Psychiatric Exam Psychiatric exam: Normal Mood - Skin Skin Exam: Dry, Intact, Warm Assessment and Plan - Assessment and Plan (Free Text) Assessment: 53M with symptomatic cholelithiasis Plan: -Needs medical and cardiac clearance prior to surgical intervention -C/w IV ABx -F/u cardio recs -Medical management per primary team -Once medically optimize will schedule patient for cholecystectomy -D/w Dr. Laz Soliman PGY3 <Fantasma Nesbitt - Last Filed: 05/15/18 22:21> Objective - Vital Signs/Intake and Output Vital Signs (last 24 hours): Temp Pulse Resp BP Pulse Ox 97.3 F L 55 L 20 118/78 97 05/15/18 16:00 05/15/18 16:00 05/15/18 16:00 05/15/18 16:00 05/15/18 16:00 Intake and Output: 05/15/18 05/16/18 18:59 06:59 Intake Total 720 Balance 720 - Labs Labs: 05/13/18 07:50 05/13/18 07:50 PT 10.9 SECONDS (9.7-12.2) 05/08/18 19:24 INR 1.0 05/08/18 19:24 APTT 31 SECONDS (21-34) 05/08/18 19:24 Attending/Attestation - Attestation I have personally seen and examined this patient.: Yes I have fully participated in the care of the patient.: Yes I have reviewed all pertinent clinical information, including history, physical exam and plan: Yes Notes (Text): Pt was seen and examined at bedside Agree with above note and assessment Pt with bradycardia and hypoxia EKG changes Cardiology evaluation Pulmonary evaluation appreciated C.w IV antibiotics Plan d.w pt in detail. Risk and benefit explained in detail.
--- NOTE | 2018-05-10 21:22 | CARD ---
APPROVED REPORT EXAM: Two-dimensional and M-mode echocardiogram with Doppler and color Doppler. INDICATION Abnormal EKG/Arrhythmia 2D DIMENSIONS IVSd1.2 (0.7-1.1cm)Aortic Root (2D)3.3 (2.0-3.7cm) LVDd5.4 (3.9-5.9cm)PWd1.1 (0.7-1.1cm) LVDs4.4 (2.5-4.0cm)FS (%) 18.8 % LVEF (%)70.0 (>50%) M-Mode DIMENSIONS RVDd2.54 (2.1-3.2cm)Left Atrium (MM)4.54 (2.5-4.0cm) IVSd1.40 (0.7-1.1cm)Aortic Root3.34 (2.2-3.7cm) LVDd5.74 (4.0-5.6cm)Aortic Cusp Exc.2.40 (1.5-2.0cm) PWd1.14 (0.7-1.1cm)FS (%) 58 % LVDs2.44 (2.0-3.8cm)LVEF (%)72 (>50%) Mitral Valve MV E Urdaitft12.3cm/sMV A Dfnxhixq83.7cm/sE/A ratio0.7 TDI E/Lateral E'0.0E/Medial E'0.0 Tricuspid Valve TR Peak Qafvecdg998lr/sTR Peak Gr.[id number] LEFT VENTRICLE The left ventricle is normal size. The apex is spade shaped, and is slit like, with apical hypertrophy. The left ventricular function is hyperdynamic. The left ventricular ejection fraction is about80%. No regional wall motion abnormalities noted. Transmitral Doppler flow pattern is Grade I-abnormal relaxation pattern. No left ventricle thrombus noted on this study. There is no ventricular septal defect visualized. There is no left ventricular aneurysm. There is no mass noted in the left ventricle. RIGHT VENTRICLE The right ventricle is normal size. There is normal right ventricular wall thickness. The right ventricular systolic function is normal. ATRIA The left atrium size is normal. The right atrium size is normal. The interatrial septum is intact with no evidence for an atrial septal defect. AORTIC VALVE The aortic valve is normal in structure and function. No aortic regurgitation is present. There is no aortic valvular stenosis. There is no aortic valvular vegetation. MITRAL VALVE The mitral valve is normal in structure and function. There is no evidence of mitral valve prolapse. There is no mitral valve stenosis. There is no mitral valve regurgitation noted. TRICUSPID VALVE The tricuspid valve is normal in structure and function. There is no tricuspid valve regurgitation noted. There is no tricuspid valve prolapse or vegetation. There is no tricuspid valve stenosis. PULMONIC VALVE The pulmonary valve is normal in structure and function. There is no pulmonic valvular regurgitation. There is no pulmonic valvular stenosis. GREAT VESSELS The aortic root is normal in size. The ascending aorta is normal in size. The pulmonary artery is normal. The IVC is normal in size and collapses >50% with inspiration. PERICARDIAL EFFUSION The pericardium appears normal. There is no pleural effusion. <Conclusion> The left ventricular function is hyperdynamic. Transmitral Doppler flow pattern is Grade I-abnormal relaxation pattern. The apex is spade shaped, and is slit like, with apical hypertrophy. Normal Doppler Impression: Non -obstructive hypertrophic cardiomyopathy, apical variant.
--- NOTE | 2018-05-10 22:54 | CP.PCM.CON ---
History of Present Illness - History of Present Illness History of Present Illness: Patient seen and evaluated Denies chest pain and dyspnea Stress test: Normal ECHO: Normal EF and apical hypertrophy (Likley reason foe EKG changes) Cardiac point of assessed as Low risk for cardiac events for Gall bladder surgery Past Patient History - Infectious Disease Hx of Infectious Diseases: None - Past Medical History & Family History Past Medical History?: Yes - Past Social History Smoking Status: Former Smoker - CARDIAC Hx Cardiac Disorders: No - PULMONARY Hx Respiratory Disorders: No - NEUROLOGICAL Hx Neurological Disorder: No - HEENT Hx HEENT Problems: No - RENAL Hx Chronic Kidney Disease: No - ENDOCRINE/METABOLIC Hx Endocrine Disorders: No - HEMATOLOGICAL/ONCOLOGICAL Hx Blood Disorders: No - INTEGUMENTARY Hx Dermatological Problems: No - MUSCULOSKELETAL/RHEUMATOLOGICAL Hx Musculoskeletal Disorders: No Hx Falls: No - GASTROINTESTINAL Hx Gall Bladder Disease: Yes - GENITOURINARY/GYNECOLOGICAL Hx Genitourinary Disorders: Yes (SEE COMMENT) Other/Comment: RIGHT INGUINAL HERNIA SX - PSYCHIATRIC Hx Substance Use: No - SURGICAL HISTORY Hx Surgeries: Yes Hx Herniorrhaphy: Yes - ANESTHESIA Hx Anesthesia: Yes Hx Anesthesia Reactions: No Hx Malignant Hyperthermia: No Meds Allergies/Adverse Reactions: Allergies Allergy/AdvReac Type Severity Reaction Status Date / Time No Known Allergies Allergy Verified 12/25/17 07:36 - Medications Medications: Current Medications Acetaminophen (Tylenol 325mg Tab) 650 mg PO Q6 PRN PRN Reason: Pain, Mild (1-3) Docusate Sodium (Colace) 100 mg PO BID [facility] Last Admin: 05/10/18 17:34 Dose: Not Given Sodium Chloride (Sodium Chloride 0.9%) 1,000 mls @ 125 mls/hr IV .Q8H [facility] Last Admin: 05/10/18 16:00 Dose: Not Given Piperacillin Sod/Tazobactam Sod (Zosyn 3.375 Gm Iv Premix) 3.375 gm in 50 mls @ 100 mls/hr IVPB Q6H KVNG PRN Reason: Protocol Last Admin: 05/10/18 22:26 Dose: 100 mls/hr Ondansetron HCl (Zofran Inj) 4 mg IVP Q6 PRN PRN Reason: Nausea/Vomiting Oxycodone HCl (Oxycodone Immediate Release Tab) 5 mg PO Q4H PRN PRN Reason: Pain, moderate (4-7) Last Admin: 05/10/18 05:38 Dose: 5 mg Results - Vital Signs Recent Vital Signs: Last Vital Signs Temp 98.8 F 05/10/18 16:00 Pulse 64 05/10/18 17:30 Resp 20 05/10/18 16:00 BP 117/74 05/10/18 16:00 Pulse Ox 96 05/10/18 16:00 - Labs Result Diagrams: 05/10/18 10:56 05/10/18 13:55 Labs: Laboratory Results - last 24 hr 05/09/18 05/10/18 05/10/18 14:16 06:41 10:56 WBC 10.3 RBC 4.70 Hgb 14.4 Hct 42.4 MCV 90.3 MCH 30.6 MCHC 33.8 RDW 14.5 Plt Count 157 MPV 10.1 Neut % (Auto) 71.7 Lymph % (Auto) 14.1 L [place] % (Auto) 12.6 H Eos % (Auto) 1.0 Baso % (Auto) 0.6 Neut # (Auto) 7.4 H Lymph # (Auto) 1.4 [place] # (Auto) 1.3 H Eos # (Auto) 0.1 Baso # (Auto) 0.1 Sodium Potassium Chloride Carbon Dioxide Anion Gap BUN Creatinine Est GFR ( Amer) Est GFR (Non-Af Amer) POC Glucose (mg/dL) 109 Random Glucose Hemoglobin A1c 6.2 Calcium Total Bilirubin AST ALT Alkaline Phosphatase Total Protein Albumin Globulin Albumin/Globulin Ratio 05/10/18 05/10/18 05/10/18 13:55 15:04 16:19 WBC RBC Hgb Hct MCV MCH MCHC RDW Plt Count MPV Neut % (Auto) Lymph % (Auto) [place] % (Auto) Eos % (Auto) Baso % (Auto) Neut # (Auto) Lymph # (Auto) [place] # (Auto) Eos # (Auto) Baso # (Auto) Sodium 139 Potassium 3.9 Chloride 101 Carbon Dioxide 28 Anion Gap 15 BUN 14 Creatinine 0.8 Est GFR ( Amer) > 60 Est GFR (Non-Af Amer) > 60 POC Glucose (mg/dL) 107 99 Random Glucose 103 Hemoglobin A1c Calcium 9.4 Total Bilirubin 1.4 H AST 64 H ALT 91 H D Alkaline Phosphatase 112 Total Protein 6.8 Albumin 3.8 Globulin 3.0 Albumin/Globulin Ratio 1.2 05/10/18 21:24 WBC RBC Hgb Hct MCV MCH MCHC RDW Plt Count MPV Neut % (Auto) Lymph % (Auto) [place] % (Auto) Eos % (Auto) Baso % (Auto) Neut # (Auto) Lymph # (Auto) [place] # (Auto) Eos # (Auto) Baso # (Auto) Sodium Potassium Chloride Carbon Dioxide Anion Gap BUN Creatinine Est GFR ( Amer) Est GFR (Non-Af Amer) POC Glucose (mg/dL) 92 Random Glucose Hemoglobin A1c Calcium Total Bilirubin AST ALT Alkaline Phosphatase Total Protein Albumin Globulin Albumin/Globulin Ratio
--- NOTE | 2018-05-11 00:08 | CARD ---
APPROVED REPORT Protocol: PHARMACOLOGICAL STRESS Test Type: LEXISCAN Test Indications: T WAVE INVERSIONS Medications: LIST SCAN Medical History: T WAVE INVERSIONS Target HR: 168 bpm Resting ECG: NSR W/ DIFFUSE NS ST T CHANGES Resting Heart Rate: 76 bpm Resting Blood Pressure: 110/68mmHg submaximum (85%): 143 bpm TEST SUMMARY [id number]:250.00..[id number]/68.0. INFUSIONDOSE 100:300.00.01.081/.0. [id number]:[id number]/60.0. PROCEDURE Pharmacologic stress testing was performed using 0.4mg per 5ml of regadenoson given intravenously over 7-10 seconds. Reversal agent aminophyline 125 mg, given intravenously for Chest Pain. POST EXERCISE Reason for Termination: Protocol Completed Target HR: No Max HR: 81 bpm 66% of Maximum Predicted HR: 168 bpm Exercise duration: 00:30 min:sec, 0 Stage Exercise capacity: 1.0METs Max Blood Pressure: 140/68mmHg Blood Pressure response to exercise: normal resting BP - appropriate response Heart Rate response to exercise: appropriate Chest Pain: No, none Angina index: 0 Arrhythmia: No, none ST Change: No, none FROM BASELINE Deviation: 0 mm INTERPRETATION Stress EKG Conclusion: NEGATIVE LEXISCAN STRESS TEST NORMAL BP RESPONSE TO LEXISCAN NUCLEAR STUDIES TO BE READ SEPARATELY EXAM: Myocardial Perfusion STRESS/REST Imaging Protocol The imaging protocol used to acquire images was Stress Tc-99m/rest Tc-99m 1 day Stress Spect myocardial perfusion imaging was performed in supine position 40 minutes following the injection of 13.1 mCi of Tc-99 Myoview. Gated Rest Spect was performed 40 minutes after intravenous 30.2 mCi Tc-99 Myoview injection. The images were gated to evaluate regional wall motion and calculate ventricular ejection fraction.Images were reconstructed using backfilter projection method in short horizontal and verticle long axis. Spect slices were generated. RESTING DATA [id number]/min ESV38.00mlMyocardial Nsaj381.00g Av. Heart Rate64.00bpm EF70.00% STRESS DATA [id number]/min ESV37.00mlMyocardial Yamr391.00g EF72.00% Regional WT score at stress:0.00 Regional WM score at stress:0.00 Summed WT score at stress:21.00 Av. Heart Rate72.00bpmSummed WM score at stress:0.00 LV Perf. Quant 17 Seg. SSS6.00 17 Seg. SRS7.00 17 Seg. SDS0.00 Stress Defect Extent (% LAD)0.00Rest Defect Extent (% LAD)0.00Rev. Defect Extent (% LAD)0.00 Stress Defect Extent (% LCX)33.80Rest Defect Extent (% LCX)63.80Rev. Defect Extent (% LCX)2.50 Stress Defect Extent (% RCA)0.00Rest Defect Extent (% RCA)0.00Rev. Defect Extent (% RCA)0.00 Stress Defect Extent (% YESSICA)5.90Rest Defect Extent (% YESSICA)12.60Rev. Defect Extent (% YESSICA)0.40 Other Information Quality:Good IMPRESSION Normal Myocardial Perfusion exercise stress study Left Ventricle LV Function:Left ventricle systolic function is normal. The Ejection Fraction is >70%. Conclusion 1. Normal Lexiscan Nuclear stress test. Normal EF
[2018-05-11] MEDS: Sodium Chloride 0.9% 1,000 ML IV SCH ×4 (00:37→19:23)
[2018-05-11] MEDS: Piperacill/Tazo 3.375gm in Dex 3.375 GM/50 ML BAG IVPB SCH ×4 (04:22→22:53)
--- NOTE | 2018-05-11 07:01 | CP.PCM.CON ---
<MartineredkacieMike - Last Filed: 05/11/18 08:04> History of Present Illness - History of Present Illness History of Present Illness: GI Fellow PGY4, Consult note. Mika Youngblood is a very pleasant 53yo male with hx of cholelithiasis presenting with acute abdominal pain. The pain is in the RUQ abdomen, 10/10 sharp and burning prior to admission. Pain was made worse by food. It has improved significantly with opiate and IV abx. Per reports he has had similar pain in the past and was assessed by surgeon who recommended cholecystectomy. Patient deferred until now. He denies weight changes, n/v, diarrhea, dysphagia, heart burn, fever. He denies history of IV drug use, hepatitis A,B,C. Hospital course has been complicated by abnormal cardiac and pulmonary findings and have been addressed by respective specialists. Patient denies family history of sudden and and denies syncopal symptoms or chest pain. PMHx - Non-obstructive hypertrophic cardiomyopathy, abnormal EKG, cholelithiasis. PSHx - Inguinal hernia repair. Colonoscopy 2016, internal hemorrhoids. FMHx - Negative for colon cancer SocHx - Non-smoker. Occasional alcoholic beverages on weekends. Works in the [employer] industry, , with children. 12pt ROS completed and negative except for as above Past Patient History - Infectious Disease Hx of Infectious Diseases: None - Past Medical History & Family History Past Medical History?: Yes - Past Social History Smoking Status: Former Smoker - CARDIAC Hx Cardiac Disorders: No - PULMONARY Hx Respiratory Disorders: No - NEUROLOGICAL Hx Neurological Disorder: No - HEENT Hx HEENT Problems: No - RENAL Hx Chronic Kidney Disease: No - ENDOCRINE/METABOLIC Hx Endocrine Disorders: No - HEMATOLOGICAL/ONCOLOGICAL Hx Blood Disorders: No - INTEGUMENTARY Hx Dermatological Problems: No - MUSCULOSKELETAL/RHEUMATOLOGICAL Hx Musculoskeletal Disorders: No Hx Falls: No - GASTROINTESTINAL Hx Gall Bladder Disease: Yes - GENITOURINARY/GYNECOLOGICAL Hx Genitourinary Disorders: Yes (SEE COMMENT) Other/Comment: RIGHT INGUINAL HERNIA SX - PSYCHIATRIC Hx Substance Use: No - SURGICAL HISTORY Hx Surgeries: Yes Hx Herniorrhaphy: Yes - ANESTHESIA Hx Anesthesia: Yes Hx Anesthesia Reactions: No Hx Malignant Hyperthermia: No Meds Allergies/Adverse Reactions: Allergies Allergy/AdvReac Type Severity Reaction Status Date / Time No Known Allergies Allergy Verified 12/25/17 07:36 - Medications Medications: Current Medications Acetaminophen (Tylenol 325mg Tab) 650 mg PO Q6 PRN PRN Reason: Pain, Mild (1-3) Docusate Sodium (Colace) 100 mg PO BID [facility] Last Admin: 05/10/18 17:34 Dose: Not Given Sodium Chloride (Sodium Chloride 0.9%) 1,000 mls @ 125 mls/hr IV .Q8H [facility] Last Admin: 05/11/18 00:37 Dose: 125 mls/hr Piperacillin Sod/Tazobactam Sod (Zosyn 3.375 Gm Iv Premix) 3.375 gm in 50 mls @ 100 mls/hr IVPB Q6H [facility] PRN Reason: Protocol Last Admin: 05/11/18 04:22 Dose: 100 mls/hr Ondansetron HCl (Zofran Inj) 4 mg IVP Q6 PRN PRN Reason: Nausea/Vomiting Oxycodone HCl (Oxycodone Immediate Release Tab) 5 mg PO Q4H PRN PRN Reason: Pain, moderate (4-7) Last Admin: 05/10/18 05:38 Dose: 5 mg Physical Exam - Constitutional Appears: Well, Non-toxic, No Acute Distress - Head Exam Head Exam: ATRAUMATIC, NORMAL INSPECTION, NORMOCEPHALIC - Eye Exam Eye Exam: EOMI, Normal appearance, PERRL - ENT Exam ENT Exam: Mucous Membranes Moist, Normal Exam - Respiratory Exam Respiratory Exam: Clear to Auscultation Bilateral, NORMAL BREATHING PATTERN. absent: Wheezes, Stridor - Cardiovascular Exam Cardiovascular Exam: REGULAR RHYTHM, +S1, +S2 - GI/Abdominal Exam GI & Abdominal Exam: Normal Bowel Sounds, Organomegaly, Soft. absent: Guarding , Tenderness Additional comments: Negative Jones's signs. - Extremities Exam Extremities exam: Positive for: normal inspection - Back Exam Back exam: NORMAL INSPECTION - Neurological Exam Neurological exam: Alert, CN II-XII Intact, Oriented x3 - Psychiatric Exam Psychiatric exam: Normal Affect, Normal Mood - Skin Skin Exam: Dry, Intact, Normal Color Results - Vital Signs Recent Vital Signs: Last Vital Signs Temp 99.8 F H 05/11/18 05:15 Pulse 64 05/11/18 05:15 Resp 20 05/11/18 05:15 BP 100/58 L 07/10/18 05:15 Pulse Ox 95 05/10/18 23:45 - Labs Result Diagrams: 05/11/18 07:10 05/11/18 07:10 Labs: Laboratory Results - last 24 hr 05/09/18 05/10/18 05/10/18 14:16 10:56 13:55 WBC 10.3 RBC 4.70 Hgb 14.4 Hct 42.4 MCV 90.3 MCH 30.6 MCHC 33.8 RDW 14.5 Plt Count 157 MPV 10.1 Neut % (Auto) 71.7 Lymph % (Auto) 14.1 L Edgar % (Auto) 12.6 H Eos % (Auto) 1.0 Baso % (Auto) 0.6 Neut # (Auto) 7.4 H Lymph # (Auto) 1.4 Edgar # (Auto) 1.3 H Eos # (Auto) 0.1 Baso # (Auto) 0.1 Sodium 139 Potassium 3.9 Chloride 101 Carbon Dioxide 28 Anion Gap 15 BUN 14 Creatinine 0.8 Est GFR ( Amer) > 60 Est GFR (Non-Af Amer) > 60 POC Glucose (mg/dL) Random Glucose 103 Hemoglobin A1c 6.2 Calcium 9.4 Total Bilirubin 1.4 H AST 64 H ALT 91 H D Alkaline Phosphatase 112 Total Protein 6.8 Albumin 3.8 Globulin 3.0 Albumin/Globulin Ratio 1.2 05/10/18 05/10/18 05/10/18 15:04 16:19 21:24 WBC RBC Hgb Hct MCV MCH MCHC RDW Plt Count MPV Neut % (Auto) Lymph % (Auto) Edgar % (Auto) Eos % (Auto) Baso % (Auto) Neut # (Auto) Lymph # (Auto) Edgar # (Auto) Eos # (Auto) Baso # (Auto) Sodium Potassium Chloride Carbon Dioxide Anion Gap BUN Creatinine Est GFR ( Amer) Est GFR (Non-Af Amer) POC Glucose (mg/dL) 107 99 92 Random Glucose Hemoglobin A1c Calcium Total Bilirubin AST ALT Alkaline Phosphatase Total Protein Albumin Globulin Albumin/Globulin Ratio Assessment & Plan - Assessment and Plan (Free Text) Assessment: 53M with hx of cholelithiasis returns to hospital with acute abdominal pain consistent with acute cholecystitis treated with pain medication and IV abx due to abnormal cardiopulmonary w/u. #Acute calculous cholecystitis w/ rupture #Elevated liver enzymes #Hepatomegaly with Hepatosteatosis #Obesity #Internal hemorrhoids #Non-obstructive hypertrophic cardiomyopathy #Abnormal EKG #RLL consolidation Plan: -Continue supportive care -U/S abdomen, CT chest, EKG, echocardiogram and Lexiscan results noted. -Agree with lap shahriar -Continue IV Zosyn -Diet per surgery -Regarding abnormal liver finding, previous Liver tests on admission and prior blood work were normal. We will order hepatitis panel for now. He should have follow up of CMP as outpt. -Avoiding alcohol, plus diet/exercise likely beneficial going forward. -Colon cancer screening in 2025. -No planned endoscopic procedures -At this point, we will sign-off. Thank you for this interesting consult. - Date & Time Date: 05/11/18 Time: 07:19 <Jonathon Corona - Last Filed: 05/11/18 08:20> Meds - Medications Medications: Current Medications Acetaminophen (Tylenol 325mg Tab) 650 mg PO Q6 PRN PRN Reason: Pain, Mild (1-3) Docusate Sodium (Colace) 100 mg PO BID [facility] Last Admin: 05/10/18 17:34 Dose: Not Given Sodium Chloride (Sodium Chloride 0.9%) 1,000 mls @ 125 mls/hr IV .Q8H [facility] Last Admin: 05/11/18 00:37 Dose: 125 mls/hr Piperacillin Sod/Tazobactam Sod (Zosyn 3.375 Gm Iv Premix) 3.375 gm in 50 mls @ 100 mls/hr IVPB Q6H [facility] PRN Reason: Protocol Last Admin: 05/11/18 04:22 Dose: 100 mls/hr Ondansetron HCl (Zofran Inj) 4 mg IVP Q6 PRN PRN Reason: Nausea/Vomiting Oxycodone HCl (Oxycodone Immediate Release Tab) 5 mg PO Q4H PRN PRN Reason: Pain, moderate (4-7) Last Admin: 05/10/18 05:38 Dose: 5 mg Results - Vital Signs Recent Vital Signs: Last Vital Signs Temp 98.2 F 05/11/18 07:10 Pulse 62 05/11/18 07:10 Resp 20 05/11/18 07:10 BP 117/73 05/11/18 07:10 Pulse Ox 94 L 07/10/18 07:10 - Labs Result Diagrams: 05/11/18 07:10 05/11/18 07:10 Labs: Laboratory Results - last 24 hr 05/09/18 05/10/18 05/10/18 14:16 10:56 13:55 WBC 10.3 RBC 4.70 Hgb 14.4 Hct 42.4 MCV 90.3 MCH 30.6 MCHC 33.8 RDW 14.5 Plt Count 157 MPV 10.1 Neut % (Auto) 71.7 Lymph % (Auto) 14.1 L Edgar % (Auto) 12.6 H Eos % (Auto) 1.0 Baso % (Auto) 0.6 Neut # (Auto) 7.4 H Lymph # (Auto) 1.4 Edgar # (Auto) 1.3 H Eos # (Auto) 0.1 Baso # (Auto) 0.1 Sodium 139 Potassium 3.9 Chloride 101 Carbon Dioxide 28 Anion Gap 15 BUN 14 Creatinine 0.8 Est GFR ( Amer) > 60 Est GFR (Non-Af Amer) > 60 POC Glucose (mg/dL) Random Glucose 103 Hemoglobin A1c 6.2 Calcium 9.4 Total Bilirubin 1.4 H AST 64 H ALT 91 H D Alkaline Phosphatase 112 Total Protein 6.8 Albumin 3.8 Globulin 3.0 Albumin/Globulin Ratio 1.2 05/10/18 05/10/18 05/10/18 15:04 16:19 21:24 WBC RBC Hgb Hct MCV MCH MCHC RDW Plt Count MPV Neut % (Auto) Lymph % (Auto) Edgar % (Auto) Eos % (Auto) Baso % (Auto) Neut # (Auto) Lymph # (Auto) Edgar # (Auto) Eos # (Auto) Baso # (Auto) Sodium Potassium Chloride Carbon Dioxide Anion Gap BUN Creatinine Est GFR ( Amer) Est GFR (Non-Af Amer) POC Glucose (mg/dL) 107 99 92 Random Glucose Hemoglobin A1c Calcium Total Bilirubin AST ALT Alkaline Phosphatase Total Protein Albumin Globulin Albumin/Globulin Ratio 05/11/18 05/11/18 05/11/18 06:57 07:10 07:10 WBC 8.6 RBC 4.37 L Hgb 13.4 Hct 39.3 MCV 89.8 MCH 30.7 MCHC 34.2 RDW 14.2 Plt Count 172 MPV 10.1 Neut % (Auto) 69.9 Lymph % (Auto) 15.3 L Edgar % (Auto) 12.2 H Eos % (Auto) 1.9 Baso % (Auto) 0.7 Neut # (Auto) 6.0 Lymph # (Auto) 1.3 Edgar # (Auto) 1.0 H Eos # (Auto) 0.2 Baso # (Auto) 0.1 Sodium 140 Potassium 4.3 Chloride 105 Carbon Dioxide 26 Anion Gap 14 BUN 13 Creatinine 0.9 Est GFR ( Amer) > 60 Est GFR (Non-Af Amer) > 60 POC Glucose (mg/dL) 100 Random Glucose 99 Hemoglobin A1c Calcium 9.4 Total Bilirubin 1.2 AST 33 ALT 59 Alkaline Phosphatase 92 Total Protein 5.8 L Albumin 3.3 L Globulin 2.5 Albumin/Globulin Ratio 1.3 Attending/Attestation - Attestation I have personally seen and examined this patient.: Yes I have fully participated in the care of the patient.: Yes I have reviewed all pertinent clinical information: Yes Notes (Text): 05/11/18 08:12 I have seen and examined patient with GI fellow. Agree with above documentation with the following additions. In brief, this is a 53 year old male with history of obesity (BMI 33), cardiomyopathy who presents to hospital with complaint of progressive abdominal pain. He describes sharp 10/10 intensity RUQ abdominal pain that is worse following meal consumption for the past 3 days. He denies nausea, vomiting, diarrhea, fever/chills, weight loss, rectal bleeding, or change in bowel habits. He does endorse similar discomfort in the past and was recommended to have elective cholecystectomy but did not follow through. Review of vitals from today shows low grade temperature of 99.8. Obesity Cardiomyopathy Abdominal pain - acute cholecystitis Transaminitis Abdominal US reviewed by me showing normal caliber CBD without presence of choledocholithiasis - NPO - Continue with antibiotic therapy - Obtain viral hepatitis panel and continue to monitor LFTs - Follow up surgical recommendations regarding plan for cholecystectomy - No further planned GI intervention, will sign off case. Please reconsult as necessary, thank you.
[2018-05-11 07:41] LABS: BASO # 0.1 K/uL (0.0-0.2); BASO % 0.7 % (0.0-2.0); EOS # 0.2 K/uL (0.0-0.7); EOS % 1.9 % (0.0-4.0); HEMOGLOBIN 13.4 g/dL (12.0-18.0); LYMPH # 1.3 K/uL (1.0-4.3); LYMPH % 15.3 % (20.0-40.0); MEAN CELL VOLUME 89.8 fL (80.0-94.0); MEAN CORPUSCULAR HEMOGLOBIN 30.7 pg (27.0-31.0); MEAN CORPUSCULAR HGB CONC 34.2 g/dL (33.0-37.0); MEAN PLATELET VOLUME 10.1 fL (7.2-11.7); MONO % 12.2 % (0.0-10.0); NEUT % 69.9 % (50.0-75.0); RBC 4.37 Mil/uL (4.40-5.90); RED CELL DISTRIBUTION WIDTH 14.2 % (11.5-14.5); WHITE BLOOD COUNT 8.6 K/uL (4.8-10.8)
[2018-05-11 07:48] LABS: ALB/GLOB RATIO 1.3 (1.0-2.1); ALBUMIN 3.3 g/dL (3.5-5.0); ALT/SGPT 59 U/L (21-72); AST/SGOT 33 U/L (17-59); BLOOD UREA NITROGEN 13 mg/dL (9-20); CALCIUM 9.4 mg/dl (8.6-10.4); GFR AFRICAN-AMERICAN > 60; GFR NON-AFRICAN AMERICAN > 60
--- NOTE | 2018-05-11 07:54 | CP.PCM.PN ---
Subjective - Date & Time of Evaluation Date of Evaluation: 05/11/18 Time of Evaluation: 07:54 - Subjective Subjective: PGY-1 Medicine progress note for Dr. Pineda. Patient seen and evaluated at bedside. States abdominal pain has subsided and feels much better today. Patient is urinating and had a bowel movement today. Denies chest pain, SOB, nausea, vomiting, diarrhea, headache, lightheadedness, dizziness, fever, and chills. Objective - Vital Signs/Intake and Output Vital Signs (last 24 hours): Temp Pulse Resp BP Pulse Ox 99.8 F H 64 20 100/58 L 95 05/11/18 05:15 05/11/18 05:15 05/11/18 05:15 05/11/18 05:15 05/10/18 23:45 Intake and Output: 05/11/18 05/11/18 06:59 18:59 Intake Total 1938 Balance 1938 - Medications Medications: Current Medications Acetaminophen (Tylenol 325mg Tab) 650 mg PO Q6 PRN PRN Reason: Pain, Mild (1-3) Docusate Sodium (Colace) 100 mg PO BID [facility] Last Admin: 05/10/18 17:34 Dose: Not Given Sodium Chloride (Sodium Chloride 0.9%) 1,000 mls @ 125 mls/hr IV .Q8H [facility] Last Admin: 05/11/18 00:37 Dose: 125 mls/hr Piperacillin Sod/Tazobactam Sod (Zosyn 3.375 Gm Iv Premix) 3.375 gm in 50 mls @ 100 mls/hr IVPB Q6H [facility] PRN Reason: Protocol Last Admin: 05/11/18 04:22 Dose: 100 mls/hr Ondansetron HCl (Zofran Inj) 4 mg IVP Q6 PRN PRN Reason: Nausea/Vomiting Oxycodone HCl (Oxycodone Immediate Release Tab) 5 mg PO Q4H PRN PRN Reason: Pain, moderate (4-7) Last Admin: 05/10/18 05:38 Dose: 5 mg - Labs Labs: 05/11/18 07:10 05/11/18 07:10 PT 10.9 SECONDS (9.7-12.2) 05/08/18 19:24 INR 1.0 05/08/18 19:24 APTT 31 SECONDS (21-34) 05/08/18 19:24 - Constitutional Appears: No Acute Distress - Head Exam Head Exam: ATRAUMATIC, NORMOCEPHALIC - Eye Exam Eye Exam: EOMI, Normal appearance - Respiratory Exam Respiratory Exam: Clear to Ausculation Bilateral. absent: Rales, Rhonchi, Wheezes - Cardiovascular Exam Cardiovascular Exam: REGULAR RHYTHM, +S1, +S2 - GI/Abdominal Exam GI & Abdominal Exam: Soft, Normal Bowel Sounds. absent: Tenderness - Extremities Exam Extremities Exam: absent: Pedal Edema, Tenderness - Neurological Exam Neurological Exam: Alert, Awake - Psychiatric Exam Psychiatric exam: Normal Mood - Skin Skin Exam: Dry, Intact, Warm Assessment and Plan - Assessment and Plan (Free Text) Plan: - Assessment and Plan (Free Text) Plan: 53 yo M with no PMHx admitted for cholelithiasis. Assessment/Plan 1. Cholelithiasis Symptomatic biliary colic Assessment/Plan * General Surgery (Dr. Nesbitt) on case * Preoperative/intraoperative/postoperative per surgery * Abd US 05/08/18: Cholelithiasis. No sonographic Jones sign. Hepatomegaly with increased hepatic echotexture likely due to fatty infiltration however other infiltrative hepatic cellular disease process not excluded. * Abd US 12/21/17: There are gallstones, gallbladder sludge with 3 mm gallbladder wall thickening.There was no right upper quadrant tenderness during the sonographic examination. Correlation with patient's pain medication status is recommended.Correlation with clinical data is recommended if acute on chronic cholecystitis is clinically suspected. * lipase: 24 * Patient going for cholecystectomy 05/12/18 2. Abnormal EKG Assessment/Plan * Patient has abnormal EKG, flipped T waves in lateral leads, and V1 and AVL changed from prior EKG. * Order for EKG and cardiac enzymes, Q 6hours X2-> negative x 3 * Monitor on telemetry for 24 hours * Recommend for cardiology consult-->Discussed with primary requests for Dr. Good for cardiac clearance--> recommends for echocardiogram and Lexiscan stress test * Echo from 2014 showing dilated left atrium, ordered for new echocardiogram * Check cardiac risk factors: a1c, lipid panel, probnp * Echocardiogram 05/09/18: LVEF= 70%, LV function is hyperdynamic. Transmitral Doppler flow patter is Grade 1 abdnormal relaxation pattern. The apex is spade shaped, and is slit lik, with apical hypertrophy. Impression: non-obrstuctive hypertrophic cardimyopathy, apical variant. * Myocardial perfusion scan 05/10/18: LVEF > 70%. Normal nuclear stress test. * As per Dr. Good, patient is at low risk for cardiac events during gall badder surgery. 3. Abnormal Chest xray Assessment/Plan * Patient has abnormal chest xray unclear if due to poor inspiratory effort * 05/08/18 CXR: poor inspiratory low volumes, crowded bronchoalveolar markings. Mild basilar atelectasis. R diaphragm elevated. * CT Chest 05/09/18: Cardiomegaly. There is a small amount of fluid in the superior pericardial recess as detailed above. Marked elevation right hemidiaphragm likely due to eventration. Compressive type atelectasis right lung base. Minor linear type atelectasis and/or scarring seen in the left lung base lingular and middle lobe regions. No effusion or focal consolidation. Mild fatty hepatic infiltration. Infiltration changes within the mesenteries adjacent to the gallbladder and hepatic flexure region. Rule out cholecystitis. Recommend follow-up gallbladder ultrasound. * CT angio 05/10: CT findings highly suspicious for acute cholecystitis with probable focal rupture near the gallbladder fundus. Suboptimal opacification of the pulmonary arteries. No gross central pulmonary embolism. Right lower lobe consolidation. * Pt started on Zosyn 3.375 Q6H on 05/09/18 * Patient is occasional smoker about 2-3 cigarettes a day for 30 years-->he has been advised to stop smoking * ABG stat-->hypoxia--> started on non-way breather * Pulmonary (Dr. Squires) on consult--> hypoxia, abnormal chest xray * recs repeat ABG, 6 minute walk test * 05/10/18 hypoxia resolved 4. Hyperglycemia-improved * hgba1c- 6.2 * Accuchecks QAC and HS * Hypoglycemic protocol Disposition: Medicine was consulted for medical optimization for surgery. Medicine team coordinated with Cardiology, Dr. Good, and Pulmonology, Dr. Squires for further evaluation of abnormal EKG, CXR and Hypoxemia. A Lexiscan was performed, results of which were normal. Dr. Good gave patient cardiac clearance. A CT angio of the chest showed R lower lobe consolidation, but no pulmonary embolism. Patient was treated with IV fluids and antibiotics. Patient' s hypoxemia resolved. Patient is medically optimized for surgery. There are no other medical issues to be treated. Medicine team will sign off at this time. Please re-consult as necessary. Thank you.
--- NOTE | 2018-05-11 09:56 | CP.PCM.PN ---
<JessicaradhaSrinivas - Last Filed: 05/11/18 09:52> Subjective - Date & Time of Evaluation Date of Evaluation: 05/11/18 Time of Evaluation: 09:52 - Subjective Subjective: Surgery: Dr. Nesbitt Pt seen and examined. Resting comfortably in bed. Pain controlled. No N/V. Objective - Vital Signs/Intake and Output Vital Signs (last 24 hours): Temp Pulse Resp BP Pulse Ox 98.2 F 62 20 117/73 94 L 05/11/18 07:10 05/11/18 07:10 05/11/18 07:10 05/11/18 07:10 05/11/18 07:10 Intake and Output: 05/11/18 05/11/18 06:59 18:59 Intake Total 1938 Balance 1938 - Medications Medications: Current Medications Acetaminophen (Tylenol 325mg Tab) 650 mg PO Q6 PRN PRN Reason: Pain, Mild (1-3) Docusate Sodium (Colace) 100 mg PO BID [facility] Last Admin: 05/11/18 09:37 Dose: 100 mg Sodium Chloride (Sodium Chloride 0.9%) 1,000 mls @ 125 mls/hr IV .Q8H [facility] Last Admin: 05/11/18 09:38 Dose: 125 mls/hr Piperacillin Sod/Tazobactam Sod (Zosyn 3.375 Gm Iv Premix) 3.375 gm in 50 mls @ 100 mls/hr IVPB Q6H [facility] PRN Reason: Protocol Last Admin: 05/11/18 09:37 Dose: 100 mls/hr Ondansetron HCl (Zofran Inj) 4 mg IVP Q6 PRN PRN Reason: Nausea/Vomiting Oxycodone HCl (Oxycodone Immediate Release Tab) 5 mg PO Q4H PRN PRN Reason: Pain, moderate (4-7) Last Admin: 05/10/18 05:38 Dose: 5 mg - Labs Labs: 05/11/18 07:10 05/11/18 07:10 PT 10.9 SECONDS (9.7-12.2) 05/08/18 19:24 INR 1.0 05/08/18 19:24 APTT 31 SECONDS (21-34) 05/08/18 19:24 - Constitutional Appears: Non-toxic, No Acute Distress - Head Exam Head Exam: ATRAUMATIC, NORMOCEPHALIC - Eye Exam Eye Exam: EOMI. absent: Scleral icterus - ENT Exam ENT Exam: Mucous Membranes Moist - Neck Exam Neck Exam: Full ROM - Respiratory Exam Respiratory Exam: NORMAL BREATHING PATTERN. absent: Accessory Muscle Use, Respiratory Distress - GI/Abdominal Exam GI & Abdominal Exam: Soft. absent: Distended, Firm, Guarding, Rigid, Tenderness - Extremities Exam Extremities Exam: absent: Calf Tenderness, Pedal Edema - Neurological Exam Neurological Exam: Alert, Awake, Oriented x3 - Psychiatric Exam Psychiatric exam: Normal Affect, Normal Mood Assessment and Plan - Assessment and Plan (Free Text) Assessment: 53M w. cholecystitis, cleared from cardiac standpoint to proceed to OR -OR tomorrow for robotic shahriar -NPO at midnight -c/w abx, pain meds, and IVF -d/w attending Zemaitis PGY4 <Fantasma Nesbitt B - Last Filed: 05/15/18 22:24> Objective - Vital Signs/Intake and Output Vital Signs (last 24 hours): Temp Pulse Resp BP Pulse Ox 97.3 F L 55 L 20 118/78 97 05/15/18 16:00 05/15/18 16:00 05/15/18 16:00 05/15/18 16:00 05/15/18 16:00 Intake and Output: 05/15/18 05/16/18 18:59 06:59 Intake Total 720 Balance 720 - Labs Labs: 05/13/18 07:50 05/13/18 07:50 PT 10.9 SECONDS (9.7-12.2) 05/08/18 19:24 INR 1.0 05/08/18 19:24 APTT 31 SECONDS (21-34) 05/08/18 19:24 Attending/Attestation - Attestation I have personally seen and examined this patient.: Yes I have fully participated in the care of the patient.: Yes I have reviewed all pertinent clinical information, including history, physical exam and plan: Yes Notes (Text): Pt was seen and examined at bedside Agree with above note and assessment Pt is cleared by cardiology and medicine team No need for any further cardiology work up OR for Lap Cholecystectomy tomorrow Consent NPO, IVF IV antibiotics Plan d.w pt in detail. Risk and benefit explained in detail.
[2018-05-11 20:12] LABS: BLOOD UREA NITROGEN 16 mg/dL (9-20); CALCIUM 9.5 mg/dl (8.6-10.4); GFR AFRICAN-AMERICAN > 60; GFR NON-AFRICAN AMERICAN > 60
[2018-05-12] MEDS: Piperacill/Tazo 3.375gm in Dex 3.375 GM/50 ML BAG IVPB SCH ×4 (04:09→22:00)
[2018-05-12] MEDS: Sodium Chloride 0.9% 1,000 ML IV SCH ×5 (04:10→16:00)
[2018-05-12 07:38] LABS: HEMOGLOBIN 13.2 g/dL (12.0-18.0); MEAN CELL VOLUME 89.4 fL (80.0-94.0); MEAN CORPUSCULAR HEMOGLOBIN 30.7 pg (27.0-31.0); MEAN CORPUSCULAR HGB CONC 34.3 g/dL (33.0-37.0); MEAN PLATELET VOLUME 9.6 fL (7.2-11.7); RBC 4.31 Mil/uL (4.40-5.90); RED CELL DISTRIBUTION WIDTH 13.8 % (11.5-14.5); WHITE BLOOD COUNT 7.6 K/uL (4.8-10.8)
[2018-05-12 07:47] LABS: BLOOD UREA NITROGEN 14 mg/dL (9-20); CALCIUM 9.3 mg/dl (8.6-10.4); GFR AFRICAN-AMERICAN > 60; GFR NON-AFRICAN AMERICAN > 60
[2018-05-12 08:18] LABS: HEPATITIS B SURFACE AG Negative (NEGATIVE)
[2018-05-12 08:26] LABS: HEPATITIS A IGM NEGATIVE (NEGATIVE); HEPATITIS B CORE AB NEGATIVE (NEGATIVE)
[2018-05-12 08:35] LABS: HEPATITIS C ANTIBODY NEGATIVE (NEGATIVE)
[2018-05-12] MEDS ORDERED: Propofol 10 mg/ml Inj (20 ML) ONE ×2 (16:41→18:58)
[2018-05-12] MEDS ORDERED: Midazolam 2 MG/2 ML VIAL ONE (16:41)
[2018-05-12] MEDS ORDERED: Rocuronium 10 mg/ml (5 ml) ONE (16:42)
[2018-05-12] MEDS: Bupivacaine 0.25% 20 ML INJ IJ ONE ×2 (17:05→19:40)
[2018-05-12] MEDS: Lidocaine/Epinephrine 1% 1:100000 10 ML IJ ONE ×2 (17:05→19:40)
[2018-05-12] MEDS ORDERED: Neostigmine Methylsulfate 3mg/3ml Syringe IV ONE (17:47)
[2018-05-12] MEDS ORDERED: Phenylephrine 10 mg/ml Inj ONE (17:52)
[2018-05-12] MEDS: Lactated Ringer's 1,000 ML IV SCH (19:15)
--- NOTE | 2018-05-12 19:52 | PCM.SURG1 ---
Surgeon's Initial Post Op Note - Surgeon's Notes Surgeon: Dr. Nesbitt Mental Health Coordinator: Dr. Agrawal PGY2, Coni CAMPOVERDE Type of Anesthesia: General Endo Pre-Operative Diagnosis: acute cholecystitis Operative Findings: see operative report Post-Operative Diagnosis: see operative report Operation Performed: robotic cholecystectomy. extensive lysis of adhesions. drainage of abdominal collection Specimen/Specimens Removed: gallbladder Estimated Blood Loss: EBL {In ML}: 100 Blood Products Given: N/A Drains Used: No Drains Post-Op Condition: Good Date of Surgery/Procedure: 05/12/18 Time of Surgery/Procedure: 17:00
[2018-05-12] MEDS: HYDROmorphone 0.5 mg/0.5 ml ISec IVP PRN ×2 (20:03→20:30)
[2018-05-13] MEDS: Sodium Chloride 0.9% 1,000 ML IV SCH
[2018-05-13 00:29] VITALS: RESP 20
[2018-05-13] MEDS: HYDROmorphone 0.5 mg/0.5 ml ISec IVP PRN ×5 (00:35→21:44)
[2018-05-13] MEDS: Piperacill/Tazo 3.375gm in Dex 3.375 GM/50 ML BAG IVPB SCH ×4 (03:20→22:54)
[2018-05-13] MEDS: Lactated Ringer's 1,000 ML IV SCH ×3 (03:25→15:15)
--- NOTE | 2018-05-13 06:08 | OP ---
PROCEDURE DATE: 05/12/2018 PREOPERATIVE DIAGNOSES: 1. Acute phlegmonous cholecystitis. 2. Abdominal pain. 3. Bradycardia with ST and T-wave changes. POSTOPERATIVE DIAGNOSES: 1. Acute phlegmonous necrotizing gangrenous cholecystitis. 2. Perihepatic and pericholecystic fluid collection due to possible perforation. 3. Extensive post-infectious adhesion due to acute on chronic cholecystitis. OPERATIONS DONE: 1. Robotic cholecystectomy. 2. Robotic extensive lysis of adhesions. 3. Robotic drainage of multiple abdominal purulent collection and abscess SURGEON: Fantasma Nesbitt MD ASSISTANTS: Pierce Agrawal DO, PGY-2 resident and WATSON Castaneda. ANESTHESIA: General endotracheal tube anesthesia. ESTIMATED BLOOD LOSS: Around 100 mL. PATHOLOGY: The gallbladder with gallstones was sent for the pathology. The peritoneal fluid was also sent for the culture. DRAIN: A 19-Tunisian Adarsh drain was placed. COMPLICATIONS: None. INTRAOPERATIVE FINDINGS: The patient had acute phlegmonous necrotizing cholecystitis with extensive post-infectious and post-inflammatory adhesions due to acute on chronic cholecystitis, and the patient also had the perihepatic and pericholecystic fluid collection due to possible perforation. It took approximately 60-80 minutes extra for the routine procedure. DESCRIPTION OF PROCEDURE: On intraoperative steps, this 53-year-old male who was diagnosed with acute cholecystitis with possible further perforation, and the patient had bradycardia and ST and T-wave changes. After cardiologic clearance, the patient was consented for laparoscopic assisted robotic cholecystectomy, possible open and brought to the OR, placed supine on the operating room table. After induction of the anesthesia, the abdomen was prepped and draped in the usual sterile fashion. The supraumbilical transverse incision was made. After incising the skin, subcutaneous tissue and the fascia, the robotic camera port was placed. Another 5-8 mm port was placed in the upper abdomen. The robot was brought in. Camera arm as well as arm 1 and arm 2 were docked. The patient had the large phlegmon of the gallbladder. There is necrosis of the fundus and perihepatic bilious and purulent collection as well as the pericholecystic collection. First collection was drained. Suction irrigation was done. Gallbladder was aspirated, and the gallbladder was resected cranially. Calot's triangle dissection was done. Cystic duct and cystic artery were identified and due to extensive adhesions and due to the gallbladder infundibulum had a large stone, the top-down approach was done. The gallbladder was opened up, and all the stone was retrieved and sent off the table for the pathology. Suction irrigation of the gallbladder was done. First partial excision of the gallbladder was done just to remove the half of the gallbladder, and now the gallbladder was resected cranially. The cystic artery was identified and clipped at three places. Due to the infundibulum was stuck to the Calot's triangle, the MILDRED was used to staple the infundibulum at infundibulum cystic junction. The gallbladder was taken out through the umbilical port site and sent off the table for the pathology. A 19-Tunisian Adarsh drain was placed, and the drain was secured to the skin. All the ports were taken out under vision, and the pneumo was deflated. The robot was undocked. The umbilical port site was closed in two layers, the fascia with 0 Vicryl interrupted suture and skin with a 4-0 Monocryl, and dry sterile dressing was applied. The patient tolerated the procedure well. Count of instrument and gauze was correct. There were no apparent complications. The patient was extubated in the OR, sent to the postanesthesia care unit in stable condition. Fantasma Nesbitt MD KARO
--- NOTE | 2018-05-13 07:19 | CP.PCM.PN ---
<Miguel Bowen - Last Filed: 05/13/18 07:46> Subjective - Date & Time of Evaluation Date of Evaluation: 05/13/18 Time of Evaluation: 07:30 - Subjective Subjective: General Surgery Note for Dr. Nesbitt Patient seen and examined at bedside. No acute event overnight. Patient is s/p robotic cholecystectomy, extensive lysis of adhesions, and drainage of abdominal collection POD#1. Patient denies pain. He reports no fever/chills or nausea/vomitng. Denies flatus or BM. He is urinating and ambulating without difficulty. Patient is asking for food. Right manuel drain with 110 cc since OR yesterday. Objective - Vital Signs/Intake and Output Vital Signs (last 24 hours): Temp Pulse Resp BP Pulse Ox 98.2 F 70 20 122/66 94 L 05/12/18 23:00 05/12/18 23:30 05/12/18 23:00 05/12/18 23:00 05/12/18 23:00 Intake and Output: 05/13/18 05/13/18 06:59 18:59 Intake Total 1650 Output Total 1010 Balance 640 - Medications Medications: Current Medications Acetaminophen (Tylenol 325mg Tab) 650 mg PO Q6 PRN PRN Reason: Pain, Mild (1-3) Docusate Sodium (Colace) 100 mg PO BID [facility] Last Admin: 05/12/18 18:00 Dose: Not Given Enoxaparin Sodium (Lovenox) 40 mg SC DAILY [facility] Hydromorphone HCl (Dilaudid) 0.5 mg IVP Q3H PRN PRN Reason: Pain, moderate (4-7) Last Admin: 05/13/18 03:39 Dose: 0.5 mg Piperacillin Sod/Tazobactam Sod (Zosyn 3.375 Gm Iv Premix) 3.375 gm in 50 mls @ 100 mls/hr IVPB Q6H [facility] PRN Reason: Protocol Last Admin: 05/13/18 03:20 Dose: 100 mls/hr Lactated Ringer's (Lactated Ringer's) 1,000 mls @ 100 mls/hr IV .Q10H [facility] Last Admin: 05/13/18 05:38 Dose: Not Given Ondansetron HCl (Zofran Inj) 4 mg IVP Q6 PRN PRN Reason: Nausea/Vomiting - Labs Labs: 05/12/18 07:25 05/12/18 07:25 PT 10.9 SECONDS (9.7-12.2) 05/08/18 19:24 INR 1.0 05/08/18 19:24 APTT 31 SECONDS (21-34) 05/08/18 19:24 - Constitutional Appears: No Acute Distress - Head Exam Head Exam: ATRAUMATIC, NORMOCEPHALIC - Eye Exam Eye Exam: EOMI, Normal appearance Pupil Exam: PERRL - ENT Exam ENT Exam: Mucous Membranes Moist - Respiratory Exam Respiratory Exam: NORMAL BREATHING PATTERN - Cardiovascular Exam Cardiovascular Exam: REGULAR RHYTHM - GI/Abdominal Exam GI & Abdominal Exam: Soft, Normal Bowel Sounds. absent: Distended, Firm, Guarding, Rigid, Tenderness, Rebound Additional comments: right manuel drain in place with serosanguinous fluid surgical site has minimal saturation, dry and intact - Extremities Exam Extremities Exam: Normal Capillary Refill. absent: Calf Tenderness - Back Exam Back Exam: absent: CVA tenderness (L), CVA tenderness (R) - Neurological Exam Neurological Exam: Alert, Awake, CN II-XII Intact, Normal Gait, Oriented x3 - Psychiatric Exam Psychiatric exam: Normal Affect, Normal Mood - Skin Skin Exam: Dry, Intact, Normal Color, Warm Assessment and Plan - Assessment and Plan (Free Text) Assessment: 53 M s/p robotic cholecystectomy, extensive lysis of adhesions, and drainage of abdominal collection POD#1 Plan: -Regular diet -Continue IV antibiotics -Analgesics/Anti-emetics PRN -OOB to chair/Ambulation/IS -DVT ppx -Further recommendations as per Dr. Laz Bowen PGY2 <Fantasma Nesbitt B - Last Filed: 05/15/18 22:51> Objective - Vital Signs/Intake and Output Vital Signs (last 24 hours): Temp Pulse Resp BP Pulse Ox 97.3 F L 55 L 20 118/78 97 05/15/18 16:00 05/15/18 16:00 05/15/18 16:00 05/15/18 16:00 05/15/18 16:00 Intake and Output: 05/15/18 05/16/18 18:59 06:59 Intake Total 720 Balance 720 - Labs Labs: 05/13/18 07:50 07/12/18 07:50 PT 10.9 SECONDS (9.7-12.2) 05/08/18 19:24 INR 1.0 05/08/18 19:24 APTT 31 SECONDS (21-34) 05/08/18 19:24 Attending/Attestation - Attestation I have personally seen and examined this patient.: Yes I have fully participated in the care of the patient.: Yes I have reviewed all pertinent clinical information, including history, physical exam and plan: Yes Notes (Text): Pt was seen and examined at bedside Agree with above note and assessment Pt is improving clinically C.w IV antibiotics DVT prophylaxis OOB to walk Plan d.w pt in detail.
[2018-05-13 08:06] LABS: BASO % 0.5 % (0.0-2.0); EOS # 0.1 K/uL (0.0-0.7); EOS % 1.7 % (0.0-4.0); HEMOGLOBIN 13.5 g/dL (12.0-18.0); LYMPH # 1.3 K/uL (1.0-4.3); LYMPH % 17.7 % (20.0-40.0); MEAN CELL VOLUME 89.1 fL (80.0-94.0); MEAN CORPUSCULAR HEMOGLOBIN 30.6 pg (27.0-31.0); MEAN CORPUSCULAR HGB CONC 34.4 g/dL (33.0-37.0); MEAN PLATELET VOLUME 9.2 fL (7.2-11.7); MONO # 0.9 K/uL (0.0-0.8); MONO % 11.4 % (0.0-10.0); NEUT # 5.2 K/uL (1.8-7.0); NEUT % 68.7 % (50.0-75.0); NRBC % 0.1 % (0.0-2.0); RBC 4.41 Mil/uL (4.40-5.90); RED CELL DISTRIBUTION WIDTH 14.4 % (11.5-14.5); WHITE BLOOD COUNT 7.6 K/uL (4.8-10.8)
[2018-05-13 08:09] LABS: ALB/GLOB RATIO 1.4 (1.0-2.1); ALBUMIN 3.5 g/dL (3.5-5.0); ALT/SGPT 69 U/L (21-72); AST/SGOT 64 U/L (17-59); BLOOD UREA NITROGEN 11 mg/dL (9-20); CALCIUM 9.6 mg/dl (8.6-10.4); GFR AFRICAN-AMERICAN > 60; GFR NON-AFRICAN AMERICAN > 60
[2018-05-13] MEDS: Enoxaparin 40 mg Syringe SC SCH (09:51)
--- NOTE | 2018-05-13 17:36 | CP.PCM.PN ---
Subjective - Date & Time of Evaluation Date of Evaluation: 05/13/18 Time of Evaluation: 09:50 - Subjective Subjective: Patient was seen and examined this morning at bedside. Patient s/p cholecystectomy in no acute distress. Patient denies any shortness of breath, cough, chest pain. Patient complains of soreness around incision sites. Patient has no respiratory acute complaints. PMH: Denies PSH: Inguinal hernia repair 10 years ago Meds: Denies Social: Occasional smoker about 2-3 cigarettes a day for 30 years. ROS: Constitutional: Patient denies fever and chills. Cardiovascular: Patient denies chest pain, palpitations. Respiratory: Patient denies shortness of breath or cough. Gastrointestinal: Patient denies nausea, vomiting, diarrhea. Neurological: Alert, awake, oriented X3 Physical Exam HEENT: Atraumatic, normocephalic, mucuous membranes moist Repiratory: Clear to auscultation bilaterally. No wheezing or rhonchi. No use of accessory muscles. Cardiovascular: +S1/ S2, regular rate and rhythm GI: Normal bowel sounds in all 4 quadrants, no tenderness, no distention Extremities: No LE edema Neurological: Alert, awake, oriented X3 Assessment: 53 year old male with no past medical history with acute cholelithiasis. Atelectasis cause by biliary pain. 1. Cholelithiasis Status: Acute - General surgery 2. Abnormal chest xray; Hypoxia - S/p cholecystectomy - patient has no respiratory complaints. Objective - Vital Signs/Intake and Output Vital Signs (last 24 hours): Temp Pulse Resp BP Pulse Ox 98.7 F 60 20 128/78 95 05/13/18 15:07 05/13/18 15:07 05/13/18 15:07 05/13/18 15:07 05/13/18 15:07 Intake and Output: 05/13/18 05/13/18 06:59 18:59 Intake Total 1650 Output Total 1010 Balance 640 - Medications Medications: Current Medications Acetaminophen (Tylenol 325mg Tab) 650 mg PO Q6 PRN PRN Reason: Pain, Mild (1-3) Docusate Sodium (Colace) 100 mg PO BID [facility] Last Admin: 05/13/18 09:51 Dose: 100 mg Enoxaparin Sodium (Lovenox) 40 mg SC DAILY [facility] Last Admin: 05/13/18 09:51 Dose: 40 mg Hydromorphone HCl (Dilaudid) 0.5 mg IVP Q3H PRN PRN Reason: Pain, moderate (4-7) Last Admin: 05/13/18 15:43 Dose: 0.5 mg Piperacillin Sod/Tazobactam Sod (Zosyn 3.375 Gm Iv Premix) 3.375 gm in 50 mls @ 100 mls/hr IVPB Q6H [facility] PRN Reason: Protocol Last Admin: 05/13/18 17:00 Dose: 100 mls/hr Lactated Ringer's (Lactated Ringer's) 1,000 mls @ 100 mls/hr IV .Q10H [facility] Last Admin: 05/13/18 15:15 Dose: 100 mls/hr Ondansetron HCl (Zofran Inj) 4 mg IVP Q6 PRN PRN Reason: Nausea/Vomiting - Labs Labs: 05/13/18 07:50 05/13/18 07:50 PT 10.9 SECONDS (9.7-12.2) 05/08/18 19:24 INR 1.0 05/08/18 19:24 APTT 31 SECONDS (21-34) 05/08/18 19:24
[2018-05-14] MEDS: Lactated Ringer's 1,000 ML IV SCH ×2 (02:15→12:24)
[2018-05-14] MEDS: HYDROmorphone 0.5 mg/0.5 ml ISec IVP PRN ×3 (02:31→21:12)
[2018-05-14] MEDS: Piperacill/Tazo 3.375gm in Dex 3.375 GM/50 ML BAG IVPB SCH ×4 (03:15→22:38)
--- NOTE | 2018-05-14 09:08 | CP.PCM.DIS ---
Provider - Provider Date of Admission: 05/08/18 20:35 Attending physician: Fantasma Nesbitt MD Time Spent in preparation of Discharge (in minutes): 30 Hospital Course - Lab Results Lab Results: Most Recent Lab Values WBC 7.6 K/uL (4.8-10.8) 05/13/18 07:50 RBC 4.41 Mil/uL (4.40-5.90) 05/13/18 07:50 Hgb 13.5 g/dL (12.0-18.0) 05/13/18 07:50 Hct 39.3 % (35.0-51.0) 05/13/18 07:50 MCV 89.1 fL (80.0-94.0) 05/13/18 07:50 MCH 30.6 pg (27.0-31.0) 05/13/18 07:50 MCHC 34.4 g/dL (33.0-37.0) 05/13/18 07:50 RDW 14.4 % (11.5-14.5) 05/13/18 07:50 Plt Count 230 K/uL (130-400) 05/13/18 07:50 MPV 9.2 fL (7.2-11.7) 05/13/18 07:50 Neut % (Auto) 68.7 % (50.0-75.0) 05/13/18 07:50 Lymph % (Auto) 17.7 % (20.0-40.0) L 05/13/18 07:50 Sumner % (Auto) 11.4 % (0.0-10.0) H 05/13/18 07:50 Eos % (Auto) 1.7 % (0.0-4.0) 05/13/18 07:50 Baso % (Auto) 0.5 % (0.0-2.0) 05/13/18 07:50 Neut # (Auto) 5.2 K/uL (1.8-7.0) 05/13/18 07:50 Lymph # (Auto) 1.3 K/uL (1.0-4.3) 05/13/18 07:50 Sumner # (Auto) 0.9 K/uL (0.0-0.8) H 05/13/18 07:50 Eos # (Auto) 0.1 K/uL (0.0-0.7) 05/13/18 07:50 Baso # (Auto) 0.0 K/uL (0.0-0.2) 05/13/18 07:50 Neutrophils % (Manual) 82 % (50-75) H 05/09/18 07:53 Band Neutrophils % 1 % (0-2) 05/09/18 07:53 Lymphocytes % (Manual) 10 % (20-40) L 05/09/18 07:53 Monocytes % (Manual) 6 % (0-10) 05/09/18 07:53 Eosinophils % (Manual) 1 % (0-4) 05/09/18 07:53 Platelet Estimate Normal (NORMAL) 05/09/18 07:53 RBC Morphology Normal 05/09/18 07:53 PT 10.9 SECONDS (9.7-12.2) 05/08/18 19:24 INR 1.0 05/08/18 19:24 APTT 31 SECONDS (21-34) 05/08/18 19:24 Puncture Site Rra 05/09/18 16:55 pCO2 40 mm/Hg (35-45) 05/09/18 16:55 pO2 48 mm/Hg (80-100) L 05/09/18 16:55 HCO3 25.1 mmol/L (21-28) 05/09/18 16:55 ABG pH 7.41 (7.35-7.45) 05/09/18 16:55 ABG Total CO2 26.6 mmol/L (22-28) 05/09/18 16:55 ABG O2 Saturation 87.2 % (95-98) L 05/09/18 16:55 ABG Base Excess 0.7 mmol/L (-2.0-3.0) 05/09/18 16:55 ABG Hemoglobin 14.1 g/dL (11.7-17.4) 05/09/18 16:55 ABG Carboxyhemoglobin 1.0 % (0.5-1.5) 05/09/18 16:55 POC ABG HHb (Measured) 12.6 % (0.0-5.0) H 05/09/18 16:55 ABG Methemoglobin 0.9 % (0.0-3.0) 05/09/18 16:55 Donato Test Pos 05/09/18 16:55 A-a O2 Difference 52.0 mm/Hg 05/09/18 16:55 Respiratory Index 1.1 05/09/18 16:55 Hgb O2 Saturation 85.5 % (95.0-98.0) L 05/09/18 16:55 FiO2 21.0 % 05/09/18 16:55 Sodium 141 mmol/L (132-148) 05/13/18 07:50 Potassium 4.0 mmol/L (3.6-5.2) 05/13/18 07:50 Chloride 105 mmol/L (98-107) 05/13/18 07:50 Carbon Dioxide 25 mmol/L (22-30) 05/13/18 07:50 Anion Gap 15 (10-20) 05/13/18 07:50 BUN 11 mg/dL (9-20) 05/13/18 07:50 Creatinine 0.9 mg/dL (0.8-1.5) 05/13/18 07:50 Est GFR ( Amer) > 60 05/13/18 07:50 Est GFR (Non-Af Amer) > 60 05/13/18 07:50 POC Glucose (mg/dL) 120 mg/dL (65-110) H 05/14/18 06:50 Random Glucose 111 mg/dL (75-110) H 05/13/18 07:50 Hemoglobin A1c 6.2 % (4.2-6.5) 05/09/18 14:16 Calcium 9.6 mg/dl (8.6-10.4) 05/13/18 07:50 Phosphorus 2.9 mg/dL (2.5-4.5) 05/13/18 07:50 Magnesium 1.8 mg/dL (1.6-2.3) 05/13/18 07:50 Total Bilirubin 0.9 mg/dL (0.2-1.3) 05/13/18 07:50 AST 64 U/L (17-59) H D 05/13/18 07:50 ALT 69 U/L (21-72) 05/13/18 07:50 Alkaline Phosphatase 77 U/L (38-126) 05/13/18 07:50 Total Creatine Kinase 87 U/L (55-170) 05/09/18 19:39 CK-MB (Mass) 1.08 ng/mL (0.0-3.38) 05/09/18 19:39 Troponin I 0.0240 ng/mL (0.00-0.120) 05/09/18 19:39 Total Protein 6.0 g/dL (6.3-8.3) L 05/13/18 07:50 Albumin 3.5 g/dL (3.5-5.0) 05/13/18 07:50 Globulin 2.5 gm/dL (2.2-3.9) 05/13/18 07:50 Albumin/Globulin Ratio 1.4 (1.0-2.1) 05/13/18 07:50 Lipase 24 U/L (23-300) 05/08/18 19:24 Urine Color Adela (YELLOW) 05/09/18 14:16 Urine Clarity Hazy (Clear) 05/09/18 14:16 Urine pH 5.0 (5.0-8.0) 05/09/18 14:16 Ur Specific [place] 1.024 (1.003-1.030) 05/09/18 14:16 Urine Protein 1+ mg/dL (NEGATIVE) H 05/09/18 14:16 Urine Glucose (UA) 1+ mg/dL (Normal) H 05/09/18 14:16 Urine Ketones Negative mg/dL (NEGATIVE) 05/09/18 14:16 Urine Blood Negative (NEGATIVE) 05/09/18 14:16 Urine Nitrate Negative (NEGATIVE) 05/09/18 14:16 Urine Bilirubin Negative (NEGATIVE) 05/09/18 14:16 Urine Urobilinogen Normal mg/dL (0.2-1.0) 05/09/18 14:16 Ur Leukocyte Esterase Neg Monse/uL (Negative) 05/09/18 14:16 Urine WBC (Auto) 5 /hpf (0-5) 05/09/18 14:16 Urine RBC (Auto) 2 /hpf (0-3) 05/09/18 14:16 Ur Squamous Epith Cells < 1 /hpf (0-5) 05/09/18 14:16 Urine Bacteria Rare (<OCC) 05/09/18 14:16 Hepatitis A IgM Ab Negative (NEGATIVE) 05/12/18 07:25 Hep Bs Antigen Negative (NEGATIVE) 05/12/18 07:25 Hep B Core IgM Ab Negative (NEGATIVE) 05/12/18 07:25 Hepatitis C Antibody Negative (NEGATIVE) 05/12/18 07:25 Blood Type O POSITIVE 05/12/18 07:25 Antibody Screen Negative 05/12/18 07:25 - Hospital Course Hospital Course: Mr. Mika Youngblood is a 53 year old male who presented to [facility] ED on 05/08 for intractable abdominal pain. He has seen Dr. Nesbitt in the past for cholelithiasis and was subsequently scheduled for a robotic laparascopic cholecystectomy secondary to acute cholecystitis. He was started on antibiotics upon admission. His operation was delayed because he needed medical clearance prior to any surgical interventions. Once medically optimized by the medicine and cardiology team, patient was scheduled for the cholecystectomy as originally planned and was done on 05/12/18. Patient tolerated the procedure and the rest of his hospital course was uneventful. Pain was well controlled, his diet was advanced as tolerated, and SIDNEY drain was removed prior to discharge. This is a brief summary of his hospital course. For a detailed encounter, please refer to medical records. Discharge Exam - Head Exam Head Exam: ATRAUMATIC, NORMOCEPHALIC - Eye Exam Eye Exam: EOMI, Normal appearance, PERRL - ENT Exam ENT Exam: Mucous Membranes Moist, Normal Exam - Respiratory Exam Respiratory Exam: Clear to PA & Lateral, NORMAL BREATHING PATTERN, UNREMARKABLE - Cardiovascular Exam Cardiovascular Exam: REGULAR RHYTHM, +S1, +S2 - GI/Abdominal Exam GI & Abdominal Exam: Normal Bowel Sounds, Soft, Tenderness. absent: Distended, Firm, Guarding - Neurological Exam Neurological exam: Alert, Oriented x3 - Psychiatric Exam Psychiatric exam: Normal Affect, Normal Mood - Skin Skin Exam: Dry, Intact, Normal Color, Warm Discharge Plan - Follow Up Plan Condition: FAIR Disposition: HOME/ ROUTINE Patient education suggested?: Yes Instructions: Cholecystectomy (DC) Additional Instructions: Please follow up with Dr. Nesbitt in 1-2 weeks. Do not shower or remove dressings until your follow up appointment. For any questions or concerns please call Dr. Nesbitt's office.
[2018-05-14] MEDS: Enoxaparin 40 mg Syringe SC SCH (09:47)
--- NOTE | 2018-05-14 15:16 | CP.PCM.PN ---
<JessicabretJuan - Last Filed: 05/14/18 16:27> Subjective - Date & Time of Evaluation Date of Evaluation: 05/14/18 Time of Evaluation: 15:06 - Subjective Subjective: General Surgery Progress Note for Dr. Nesbitt 53M seen and evaluated this AM. No acute events overnight. Pt tolerating diet and pain is controlled. SIDNEY drain 20cc serous output. Admits BM or passing flatus. Denies f/c, n/v/d, CP, SOB, or urinary symptoms. Objective - Vital Signs/Intake and Output Vital Signs (last 24 hours): Temp Pulse Resp BP Pulse Ox 99.6 F 62 20 118/75 95 05/14/18 07:00 05/14/18 07:00 05/14/18 07:00 05/14/18 07:00 05/14/18 07:00 Intake and Output: 05/14/18 05/14/18 06:59 18:59 Output Total 580 20 Balance -580 -20 - Medications Medications: Current Medications Acetaminophen (Tylenol 325mg Tab) 650 mg PO Q6 PRN PRN Reason: Pain, Mild (1-3) Docusate Sodium (Colace) 100 mg PO BID [facility] Last Admin: 05/14/18 09:47 Dose: 100 mg Enoxaparin Sodium (Lovenox) 40 mg SC DAILY [facility] Last Admin: 05/14/18 09:47 Dose: 40 mg Hydromorphone HCl (Dilaudid) 0.5 mg IVP Q3H PRN PRN Reason: Pain, moderate (4-7) Last Admin: 05/14/18 12:25 Dose: 0.5 mg Ondansetron HCl (Zofran Inj) 4 mg IVP Q6 PRN PRN Reason: Nausea/Vomiting - Labs Labs: 05/13/18 07:50 05/13/18 07:50 PT 10.9 SECONDS (9.7-12.2) 05/08/18 19:24 INR 1.0 05/08/18 19:24 APTT 31 SECONDS (21-34) 05/08/18 19:24 - Constitutional Appears: Well, Non-toxic, No Acute Distress - Head Exam Head Exam: ATRAUMATIC, NORMAL INSPECTION, NORMOCEPHALIC - Eye Exam Eye Exam: EOMI, Normal appearance - Respiratory Exam Respiratory Exam: Clear to Ausculation Bilateral, NORMAL BREATHING PATTERN - Cardiovascular Exam Cardiovascular Exam: REGULAR RHYTHM, +S1, +S2. absent: Murmur - GI/Abdominal Exam GI & Abdominal Exam: Soft, Normal Bowel Sounds. absent: Distended, Firm, Guarding, Tenderness, Rebound Additional comments: SIDNEY drain 20cc serous output - Neurological Exam Neurological Exam: Alert, Awake, Oriented x3 - Psychiatric Exam Psychiatric exam: Normal Affect, Normal Mood - Skin Skin Exam: Dry, Intact, Normal Color, Warm Assessment and Plan - Assessment and Plan (Free Text) Assessment: 53M s/p robot assisted lap shahriar POD2 Plan: c/w pain management c/w IV Abx encourage ambulation and IS use will d/c SIDNEY drain tomorrow morning discharge planning further recs per Dr. Laz Maldonado PGY1 <Fantasma Nesbitt - Last Filed: 05/15/18 23:04> Objective - Vital Signs/Intake and Output Vital Signs (last 24 hours): Temp Pulse Resp BP Pulse Ox 97.3 F L 55 L 20 118/78 97 05/15/18 16:00 05/15/18 16:00 05/15/18 16:00 05/15/18 16:00 05/15/18 16:00 Intake and Output: 05/15/18 05/16/18 18:59 06:59 Intake Total 720 Balance 720 - Labs Labs: 05/13/18 07:50 05/13/18 07:50 PT 10.9 SECONDS (9.7-12.2) 05/08/18 19:24 INR 1.0 05/08/18 19:24 APTT 31 SECONDS (21-34) 05/08/18 19:24 Attending/Attestation - Attestation I have personally seen and examined this patient.: Yes I have fully participated in the care of the patient.: Yes I have reviewed all pertinent clinical information, including history, physical exam and plan: Yes Notes (Text): Pt was seen and examined at bedside Agree with above note and assessment Pt is improved clinically DC in am DC drain Po antibiotics Plan d.w pt in detail. Risk and benefit explained in detail.
[2018-05-15] MEDS: Piperacill/Tazo 3.375gm in Dex 3.375 GM/50 ML BAG IVPB SCH ×2 (05:35→10:05)
[2018-05-15] MEDS: HYDROmorphone 0.5 mg/0.5 ml ISec IVP PRN (05:43)
[2018-05-15] MEDS: Enoxaparin 40 mg Syringe SC SCH ×2 (10:06→10:29)
[2018-05-15 16:08] VITALS: BP 118/78; PULSE 55; TEMP 97.3; O2SAT 97
--- NOTE | 2018-05-16 09:35 | CARD ---
APPROVED REPORT Date of service: 05/08/2018 EKG Measurement Heart [id number] <Conclusion> Sinus bradycardia Possible Left atrial enlargement ST & T wave abnormality, consider lateral ischemia Abnormal ECG
== END 2018-05-15 16:45 | disposition home or self-care (01) | DRG 197 ==
LOC: C.ER 18:13 → C.9E 20:35 → C.3T 23:02 → C.6T 05-09 15:08
PROVIDERS: ADMIT Surgery Surgical Critical Care; ATTEND Surgery Surgical Critical Care
PROC: 0DNW4ZZ Release Peritoneum, Percutaneous Endoscopic Approach (ICD-10-PCS; 2018-05-12)
PROC: 0FJ44ZZ Inspection of Gallbladder, Percutaneous Endoscopic Approach (ICD-10-PCS; 2018-05-12)
PROC: 8E0W0CZ Robotic Assisted Procedure of Trunk Region, Open Approach (ICD-10-PCS; 2018-05-12)
PROC: 0FT40ZZ Resection of Gallbladder, Open Approach (ICD-10-PCS; principal; 2018-05-12 14:45)
DX: K80.12 Calculus of gallbladder with acute and chronic cholecystitis without obstruction (principal); R09.02 Hypoxemia; I42.9 Cardiomyopathy, unspecified; J98.11 Atelectasis; K66.0 Peritoneal adhesions (postprocedural) (postinfection); Z87.891 Personal history of nicotine dependence; E66.9 Obesity, unspecified; K82.8 Other specified diseases of gallbladder; R73.9 Hyperglycemia, unspecified

== ENCOUNTER 2018-05-19 15:21 | Emergency (ER) | payer OTHER ==
--- NOTE | 2018-05-19 15:54 | C.PDOC ---
History Of Present Illness 53-year-old male presents to the ED requesting medical clearance for flying on . Patient is s/p cholecystectomy on 05/12/[address] Nesbitt. States he has been asymptomatic since. Denies redness/discharge from site, fever , or chills. Patient reports he is able to eat without difficulty. Dressings are still in place. He reports his only concern is whether he can fly for a family emergency. Patient was discharged home on Levaquin and has been compliant. Time Seen by Provider: 05/19/18 15:54 Chief Complaint (Nursing): Medical Clearance History Per: Patient History/Exam Limitations: no limitations Onset/Duration Of Symptoms: Days Current Symptoms Are (Timing): Gone Past Medical History Reviewed: Historical Data, Nursing Documentation, Vital Signs Vital Signs: Last Vital Signs Temp 98.4 F 05/19/18 16:01 Pulse 68 05/19/18 16:01 Resp 16 05/19/18 16:01 BP 109/72 05/19/18 16:01 Pulse Ox 96 05/19/18 16:01 - Medical History PMH: Gall Bladder Disease Denies: Chronic Kidney Disease Surgical History: Cholecystectomy (on 05/12/18), Hernia Repair - [facility] Procedures INSPECTION OF GALLBLADDER, PERCUTANEOUS ENDOSCOPIC APPROACH (05/08/18) RELEASE PERITONEUM, PERCUTANEOUS ENDOSCOPIC APPROACH (05/08/18) RESECTION OF GALLBLADDER, OPEN APPROACH (05/08/18) ROBOTIC ASSISTED PROCEDURE OF TRUNK REGION, OPEN APPROACH (05/08/18) Family History: States: Unknown Family Hx - Social History Hx Tobacco Use: No Hx Alcohol Use: Yes (socially) Hx Substance Use: No - Immunization History Hx Tetanus Toxoid Vaccination: No Hx Influenza Vaccination: No Hx Pneumococcal Vaccination: No Review Of Systems Except As Marked, All Systems Reviewed And Found Negative. Constitutional: Negative for: Fever, Chills Gastrointestinal: Negative for: Nausea, Vomiting, Abdominal Pain, Diarrhea Skin: Positive for: Lesions (incision to abdomen). Negative for: Rash Physical Exam - Physical Exam Appears: Well, Non-toxic, No Acute Distress Skin: Warm, Dry, No Rash Head: Atraumatic, Normacephalic Eye(s): bilateral: Normal Inspection Oral Mucosa: Moist Neck: Normal ROM Chest: Symmetrical Respiratory: No Accessory Muscle Use, Other (NARD) Gastrointestinal/Abdominal: Soft, No Tenderness, No Guarding, Other (Surgical dressings noted over the abdominal wall with no erythema) Extremity: Bilateral: Atraumatic, Normal ROM Pulses: Left Radial: Normal, Right Radial: Normal Neurological/Psych: Oriented x3, Normal Speech Progress - Re-Evaluation Re-evaluation Note: 05/19/18 15:54 D/W SURG RESIDENT WILL EVAL IN ER 05/19/18 16:12 SP DRESSING REMOVAL BY SURG RESIDENT, CLEARED TO TRAVEL PER SURG RESIDENTS. PT TO FU OUTPT - Data Reviewed Data Reviewed: Old records Disposition Counseled Patient/Family Regarding: Diagnosis, Need For Followup - Disposition Referrals: [facility] [Outside] [facility] [Outside] Disposition: HOME/ ROUTINE Disposition Time: 16:13 Condition: IMPROVED Instructions: Surgical Wound (DC) Forms: [employer] (Albanian) - Clinical Impression Clinical Impression: Medical assessment, Encounter for postoperative wound check - Scribe Statement The provider has reviewed the documentation as recorded by the Scribe (Sania Marie) Provider Attestation: All medical record entries made by the Scribe were at my direction and personally dictated by me. I have reviewed the chart and agree that the record accurately reflects my personal performance of the history, physical exam, medical decision making, and the department course for this patient. I have also personally directed, reviewed, and agree with the discharge instructions and disposition.
[2018-05-19 16:01] VITALS: BMI 34.6
[2018-05-19 16:08] VITALS: BP 109/72; PULSE 68; RESP 16; TEMP 98.4; O2SAT 96
== END 2018-05-19 16:18 | disposition home or self-care (01) ==
LOC: C.ER 15:21
DX: Z48.01 Encounter for change or removal of surgical wound dressing (principal)

== ENCOUNTER 2018-06-30 17:50 | Emergency (ER) | payer OTHER ==
[2018-06-30 17:50] VITALS: BMI 34.6
[2018-06-30 18:04] VITALS: BP 128/76; PULSE 53; RESP 18; TEMP 98.1; O2SAT 96
[2018-06-30] MEDS ORDERED: Naproxen 550 mg Tab PO STA (18:33)
[2018-06-30] MEDS ORDERED: Naproxen 550 mg Tab PO ONE (18:40)
--- NOTE | 2018-06-30 18:49 | C.PDOC ---
History Of Present Illness 53 y/o male presents to the ED complaining of left lower back pain that radiates down his left leg for 2 months intermittently. He usually takes Motrin , Tylenol or applies Bengay to the area with relief but recently notes no relief. He reports being on his feet for long periods of time at work that make the pain worse at the end of the day. The patient denies any recent trauma, change in sensation, urinary/bowel incontinence, weakness or injury. Time Seen by Provider: 06/30/18 18:19 Chief Complaint (Nursing): Back Pain History Per: Patient History/Exam Limitations: no limitations Onset/Duration Of Symptoms: Days Current Symptoms Are (Timing): Still Present Quality Of Discomfort: "Pain" Previous Symptoms: Back Pain (lower left back pain) Associated Symptoms: denies: Incontinence Exacerbating Factor(s): Standing (for extensive period of time) Recent travel outside of the [place]: No Past Medical History Reviewed: Historical Data, Nursing Documentation, Vital Signs Vital Signs: Last Vital Signs Temp 98.1 F 06/30/18 18:02 Pulse 53 L 06/30/18 18:02 Resp 18 06/30/18 18:02 BP 128/76 06/30/18 18:02 Pulse Ox 96 06/30/18 19:59 - Medical History PMH: Gall Bladder Disease Denies: Chronic Kidney Disease Surgical History: Cholecystectomy (on 05/12/18), Hernia Repair - [facility] Procedures INSPECTION OF GALLBLADDER, PERCUTANEOUS ENDOSCOPIC APPROACH (05/08/18) RELEASE PERITONEUM, PERCUTANEOUS ENDOSCOPIC APPROACH (05/08/18) RESECTION OF GALLBLADDER, OPEN APPROACH (05/08/18) ROBOTIC ASSISTED PROCEDURE OF TRUNK REGION, OPEN APPROACH (05/08/18) Family History: States: Unknown Family Hx - Social History Hx Tobacco Use: No Hx Alcohol Use: Yes (socially) Hx Substance Use: No - Immunization History Hx Tetanus Toxoid Vaccination: No Hx Influenza Vaccination: No Hx Pneumococcal Vaccination: No Review Of Systems Except As Marked, All Systems Reviewed And Found Negative. Constitutional: Positive for: Fever Genitourinary: Negative for: Incontinence Musculoskeletal: Positive for: Leg Pain Skin: Negative for: Bruising Neurological: Positive for: Other (tingling down to left leg). Negative for: Weakness, Numbness Physical Exam - Physical Exam Appears: Well, Non-toxic, No Acute Distress Skin: Normal Color, Warm, Dry Head: Atraumatic, Normacephalic Eye(s): bilateral: EOMI Oral Mucosa: Moist Neck: Normal, Normal ROM, Supple Chest: Symmetrical Cardiovascular: Rhythm Regular Respiratory: Normal Breath Sounds, No Accessory Muscle Use, No Rales, No Rhonchi , No Wheezing Gastrointestinal/Abdominal: Normal Exam, Soft, No Tenderness Back: No CVA Tenderness, No Vertebral Tenderness, Other (Left Buttock/ left paralumbar tenderness) Extremity: Normal ROM, No Swelling, Other (Normal sensation to both lower extremities) Extremity: Bilateral: Normal Color And Temperature, Normal ROM Pulses: Left Dorsalis Pedis: Normal, Right Dorsalis Pedis: Normal Neurological/Psych: Oriented x3, Normal Speech, Normal Motor, Normal Sensation Gait: Steady ED Course And Treatment O2 Sat by Pulse Oximetry: 96 (RA) Pulse Ox Interpretation: Normal - Other Rad Lumbar Spine X-Ray: Viewed By Me, Read By Radiologist Interpretation: Unremarkable radiographs of the lumbar spine. Progress Note: Anaprox DS 550 mg PO given in ED. Lumbar Spine X-Ray ordered. On reassessment, patient is resting comfortably, with improvement of back pain. Patient remains afebrile, with no bony tenderness, extremity numbness or weakness, or abdominal pain. Patient is ambulatory in the emergency department with no signs of discomfort. Patient was advised to follow up with physician/ clinic in 1-2 days. Disposition - Disposition Referrals: [facility] [Outside] Disposition: HOME/ ROUTINE Disposition Time: 18:46 Condition: STABLE Additional Instructions: Vaya a dias mdico o la clnica en 2-3 rosas sin falta, para mas evaluacin. [place] los medicamentos chalino indicado. Volver a la gisela de emergencia en cualquier momento si los sntomas persisten o empeoran. 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 - Scribe Statement The provider has reviewed the documentation as recorded by the Scribe (Molly Kerr) All medical record entries made by the Scribe were at my direction and personally dictated by me. I have reviewed the chart and agree that the record accurately reflects my personal performance of the history, physical exam, medical decision making, and the department course for this patient. I have also personally directed, reviewed, and agree with the discharge instructions and disposition.
--- NOTE | 2018-06-30 18:54 | RAD ---
Date of service: 06/30/2018 PROCEDURE: Radiographs of the Lumbar Spine. HISTORY: pain COMPARISON: No prior. FINDINGS: BONES: Normal alignment. No listhesis. No fracture. DISC SPACES: Unremarkable. OTHER FINDINGS: None. IMPRESSION: Unremarkable radiographs of the lumbar spine.
== END 2018-06-30 18:57 | disposition home or self-care (01) ==
LOC: C.ER 17:50
DX: M54.30 Sciatica, unspecified side (principal)

== ENCOUNTER 2018-11-25 18:36 | Emergency (ER) | payer SELFPAY ==
[2018-11-25 18:36] VITALS: BMI 34.6
--- NOTE | 2018-11-25 18:58 | C.PDOC ---
History Of Present Illness 53 y/o male,w/PMhx of sciatica, presents to the ER complaining of left shoulder and left lower back and hip pain which has been present for the past 3 months. Patient states that the pain radiates to the buttock, hip, and down the left leg. Pain is worse with movement and ambulation. He notes that he has been taking Naproxen without relief. He states that he typically has the pain when "it is cold outside." Patient was evaluated for same complaint in [facility] last year and he was prescribed Naproxen and Flexeril. Patient took the medications with good relief. He notes that he does not have PMD and he did not follow up with orthopedist. Denies having trauma/injury, fever, chills, weakness, numbness, parasthesia, saddle anasthesia,bowel/bladder incontinence, calf swelling, CP, SOB, nausea, vomiting, or abdominal pain. Time Seen by Provider: 11/25/18 18:46 Chief Complaint (Nursing): Lower Extremity Problem/Injury History Per: Patient History/Exam Limitations: no limitations Onset/Duration Of Symptoms: Days Current Symptoms Are (Timing): Still Present Severity: Moderate Past Medical History Reviewed: Historical Data, Nursing Documentation, Vital Signs Vital Signs: Last Vital Signs Temp 98.1 F 11/25/18 18:45 Pulse 51 L 11/25/18 18:45 Resp 18 11/25/18 18:45 BP 130/80 11/25/18 18:45 Pulse Ox 97 11/25/18 18:45 - Medical History PMH: Gall Bladder Disease Denies: Chronic Kidney Disease Surgical History: Cholecystectomy, Hernia Repair - [facility] Procedures INSPECTION OF GALLBLADDER, PERCUTANEOUS ENDOSCOPIC APPROACH (05/08/18) RELEASE PERITONEUM, PERCUTANEOUS ENDOSCOPIC APPROACH (05/08/18) RESECTION OF GALLBLADDER, OPEN APPROACH (05/08/18) ROBOTIC ASSISTED PROCEDURE OF TRUNK REGION, OPEN APPROACH (05/08/18) Family History: States: No Known Family Hx - Social History Hx Tobacco Use: No Hx Alcohol Use: Yes Hx Substance Use: No - Immunization History Hx Tetanus Toxoid Vaccination: Yes Hx Influenza Vaccination: Yes Hx Pneumococcal Vaccination: Yes Review Of Systems Except As Marked, All Systems Reviewed And Found Negative. Constitutional: Negative for: Fever, Chills Cardiovascular: Negative for: Chest Pain Respiratory: Negative for: Shortness of Breath Gastrointestinal: Negative for: Nausea, Vomiting, Abdominal Pain Genitourinary: Negative for: Dysuria, Frequency, Incontinence, Hematuria Musculoskeletal: Positive for: Back Pain, Leg Pain Neurological: Negative for: Weakness, Numbness Physical Exam - Physical Exam Appears: Well, Non-toxic, No Acute Distress Skin: Normal Color, Warm, Dry Head: Atraumatic, Normacephalic Eye(s): bilateral: Normal Inspection, PERRL, EOMI Nose: Normal Oral Mucosa: Moist Neck: Normal, Normal ROM, No Midline Cervical Tenderness, No Paracervical Tenderness, Supple Chest: Symmetrical Cardiovascular: Rhythm Regular Respiratory: Normal Breath Sounds, No Rales, No Rhonchi, No Wheezing Gastrointestinal/Abdominal: Normal Exam, Bowel Sounds (normoactive), Soft, No Tenderness, No Guarding, No Rebound Back: Normal Inspection, No CVA Tenderness, No Vertebral Tenderness, No Decreased ROM, No Muscle Spasm, Paraspinal Tenderness ( left lumbar paraspinal tenderness) Extremity: Normal ROM, Tenderness (tenderness to posterior aspect of left shoulder and lateral aspect of left hip), Capillary Refill (<2s), No Swelling Extremity: Bilateral: Atraumatic, No Pedal Edema, Normal Color And Temperature, Normal ROM Pulses: Left Radial: Normal, Right Radial: Normal Neurological/Psych: Oriented x3, Normal Speech, Normal Motor, Normal Sensation Gait: Steady ED Course And Treatment O2 Sat by Pulse Oximetry: 97 (RA) Pulse Ox Interpretation: Normal Medical Decision Making Medical Decision Making: Plan: --Toradol IM --Valium PO --Lidoderm Patch --X-Ray-Left Hip --X-Ray-Left Shoulder Patient reports resolution of pain after medication. Xrays read by me as osteoarthritic changes, both in left shoulder and left hip. Recommended anti-inflammatory medication and orthopedic followup. Patient verbalized understanding and states he will followup as instructed. Diagnostic testing results and plan of care discussed with patient. Strict instructions given regarding prescription use, importance of followup, and sign s/symptoms to return to ER including numbness, weakness, paresthesias, or any other new/worsening symptoms. Pt verbalized understanding of discussion. Patient is A&Ox3, ambulating with steady gait, with vital signs stable for discharge. Disposition - Disposition Referrals: [facility] [place] [Outside] Alban Florian III, MD [Staff Provider] - Disposition: HOME/ ROUTINE Disposition Time: 20:00 Condition: IMPROVED Additional Instructions: Mobic diariamente para el dolor segn sea necesario. Flexeril cada 12 horas para el dolor segn sea necesario. no lo use antes de conducir o trabajar Lidoderm parches diariamente 12 horas, 12 horas de descanso Qutese jailene parche de Lidoderm en 12 horas. Seguimiento con ortopedia dentro de 2 rosas. 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 - Scribe Statement The provider has reviewed the documentation as recorded by the Scribe Brady Lovell Provider Attestation All medical record entries made by the Scribe were at my direction and personally dictated by me. I have reviewed the chart and agree that the record accurately reflects my personal performance of the history, physical exam, medical decision making, and the department course for this patient. I have also personally directed, reviewed, and agree with the discharge instructions and disposition.
[2018-11-25] MEDS ORDERED: Lidocaine 5% Patch TD STA (20:10)
[2018-11-25] MEDS ORDERED: Lidocaine 5% Patch TD ONE (20:17)
[2018-11-25 20:20] VITALS: BP 134/84; PULSE 55; RESP 17; TEMP 97.7
[2018-11-25 21:19] VITALS: O2SAT 97
--- NOTE | 2018-11-26 08:06 | RAD ---
Date of service: 11/25/2018 PROCEDURE: Radiographs of the Left Shoulder HISTORY: left shoulder pain COMPARISON: No prior. FINDINGS: BONES: No acute fracture or destructive bony lesion identified. JOINTS: Limited degenerative cortical sclerosis is appreciated at the acromioclavicular joint joint with glenohumeral joint unremarkable appearing. Subluxation or dislocation identified. SOFT TISSUES: Normal. OTHER FINDINGS: None. IMPRESSION: Limited degenerative joint disease left acromioclavicular joint. No acute fracture or dislocation left shoulder.
--- NOTE | 2018-11-26 08:11 | RAD ---
Date of service: 11/25/2018 PROCEDURE: LEFT HIP WITH PELVIS RADIOGRAPHS HISTORY: left hip pain COMPARISON: None available. TECHNIQUE: Frontal views of the pelvis left hip have been submitted with frog-leg lateral view left hip joint. FINDINGS: There is no acute fracture or dislocation of the left hip joint of the pelvic ring appearing intact as well. The sacroiliac joints are bilaterally unremarkable with intact pubic symphysis. No pubic bone fracture appreciable. Advanced degenerative joint disease appreciated at a late stage at the left hip joint where there is gross joint space narrowing and prominent articular cortical sclerosis. Lesser similar changes are present at the right hip joint. Local soft tissues appear diffusely unremarkable. IMPRESSION: No acute fracture or dislocation left hip joint. Late stage osteoarthritis is appreciated with moderate to severe osteoarthritis identified right hip joint.
== END 2018-11-25 20:19 | disposition home or self-care (01) ==
LOC: C.ER 18:36
DX: M19.012 Primary osteoarthritis, left shoulder (principal); M16.12 Unilateral primary osteoarthritis, left hip
CPT/HCPCS: 73030; 73502; 96372; 99284; J1885